=== PATIENT | female | born 1945 | race Caucasian/White ===

== ENCOUNTER → 2016-12-12 | Outpatient (CLI) | payer MEDICARE ==
[2014-03-01 10:30] VITALS: BP 118/60
[~2016-12-12] MED LIST: CIPR500T94 PO; ESOM40CA25 PO; IOHEXOL 300 MG/ML 75 ML VIAL. IV ONE; IOHEXOL 300 MG/ML 75 ML VIAL. ONE; LOSA100T6 PO; METF500T4 PO; NIFE60TA41 PO
--- NOTE | 2016-12-12 15:40 | RAD ---
Indication chronic shortness of air. Axial images through the chest were obtained. MIP images were generated and reviewed. Approximately 60 cc of Omnipaque [address] imaging of the chest is available. Imaging through the upper abdomen demonstrates moderate splenomegaly. An acute or additional finding is not seen. The thoracic aorta is unremarkable. Coronary artery calcification or stents are noted. There is no significant hilar or mediastinal adenopathy. The study is negative for pulmonary embolus. An acute parenchymal infiltrate in either lung is not seen. There is no dominant soft tissue mass seen in either lung. IMPRESSION:: No acute finding in the chest. Negative study for pulmonary embolus. Splenomegaly. PQRS Compliance Statement: One or more of the following individualized dose reduction techniques were utilized for this examination: 1. Automated exposure control 2. Adjustment of the mA and/or kV according to patient size 3. Use of iterative reconstruction technique
== END | disposition home or self-care (01) ==
LOC: CT 14:01
PROVIDERS: ATTEND Physician Assistant
DX: R16.1 Splenomegaly, not elsewhere classified (principal); R06.02 Shortness of breath; R68.89 Other general symptoms and signs; R07.89 Other chest pain; R79.1 Abnormal coagulation profile; I10 Essential (primary) hypertension
CPT/HCPCS: 71275; Q9967

== ENCOUNTER 2017-06-05 10:02 | Inpatient (IN) | payer MEDICARE ==
[~2017-06-05] VITALS: Ht 165.1 cm; Wt 81.2 kg
[~2017-06-05 10:02] MED LIST changes: -IOHEXOL 300 MG/ML 75 ML VIAL. IV ONE; -IOHEXOL 300 MG/ML 75 ML VIAL. ONE
[2017-06-05 11:00] VITALS: BP 145/66
[2017-06-05 11:40] LABS: BASO % 2 % (0-3); EOS # 0.2 x10^3/uL (0.0-0.7); EOS % 6 % (0-3); HEMATOCRIT 35.5 % (36.0-47.0); HEMOGLOBIN 11.7 g/dL (12.0-15.5); LYMPH % 29 % (24-48); MEAN CORPUSCULAR HEMOGLOBIN 32 pg (25-35); MEAN CORPUSCULAR HGB CONC 33 g/dL (31-37); MEAN CORPUSCULAR VOLUME 96 fL (79-100); MONO # 0.3 x10^3/uL (0.0-1.1); MONO % 9 % (0-9); NEUT # 1.8 x10^3uL (1.8-7.7); NEUT % 55 % (31-73); PLATELET COUNT 90 x10^3/uL (140-400); RED CELL DISTRIBUTION WIDTH 15.1 % (11.5-14.5); WHITE BLOOD COUNT 3.4 x10^3/uL (4.0-11.0)
[2017-06-05 11:47] LABS: ALBUMIN 3.2 g/dL (3.4-5.0); ALBUMIN/GLOBULIN RATIO 0.9 (1.0-1.7); CALCIUM 8.6 mg/dL (8.5-10.1); CREATININE 1.1 mg/dL (0.6-1.0); POTASSIUM 4.3 mmol/L (3.5-5.1); TOTAL BILIRUBIN 0.6 mg/dL (0.2-1.0); TOTAL PROTEIN 6.9 g/dL (6.4-8.2)
[2017-06-05] MEDS ORDERED: AMLO5TAB4 PO (12:08)
[2017-06-05] MEDS ORDERED: PRAV40TA2 PO (12:08)
[2017-06-05] MEDS ORDERED: INSU200I4 SQ (12:08)
[2017-06-05] MEDS ORDERED: LINA5TAB4 PO (12:08)
[2017-06-05] MEDS ORDERED: ALEN70TA5 PO (12:08)
[2017-06-05] MEDS ORDERED: LEVO137T3 PO (12:09)
[2017-06-05 12:34] LABS: BILIRUBIN,URINE NEG (NEG); CLARITY,URINE HAZY; COLOR,URINE STRAW; GLUCOSE,URINE NEG (NEG); NITRITE,URINE NEG (NEG); RBC,URINE 0 /HPF (0-2); UROBILINOGEN,URINE 0.2 mg/dL (0.2 mg/dL)
[2017-06-05 12:35] LABS: BACTERIA,URINE FEW /HPF (0-FEW); SQUAMOUS EPITHELIAL CELL,UR FEW /LPF
[2017-06-05] MEDS: PRAVASTATIN 20 MG TABLET. PO SCH (12:41)
[2017-06-05 12:57] LABS: PLT ESTIMATE DECREASED (ADEQUATE)
--- NOTE | 2017-06-05 14:10 | RAD ---
Chest, 2 views, 06/05/2017: History: Shortness of breath Comparison is made to a study from 03/01/2014. The heart is mildly enlarged. There is calcific plaquing of the aorta. The pulmonary vascularity is at the upper limits of normal. Slight pleural thickening is present in the lateral costophrenic angles and one of the posterior costophrenic angles suggesting a tiny amount pleural fluid. No pulmonary consolidation is seen. Moderate hypertrophic spurring is present in the spine. IMPRESSION: Probable low-grade congestive heart failure.
[2017-06-05 15:06] VITALS: BP 118/65
[2017-06-05] MEDS: ACETAMINOPHEN 500 MG TABLET PO PRN (15:18)
[2017-06-05 19:10] VITALS: BP 142/73
[2017-06-05] MEDS ORDERED: FUROSEMIDE 20 MG/2 ML VIAL IVP ONE (20:00)
[2017-06-05] MEDS: INSULIN GLARGINE 300 UNITS/3 ML INSULN.PEN. SQ SCH (20:32)
[2017-06-05 23:00] VITALS: BP 149/73
[2017-06-06] MEDS: ACETAMINOPHEN 500 MG TABLET PO PRN ×3 (03:28→18:06)
[2017-06-06 05:57] LABS: BASO % 0 % (0-3); EOS # 0.2 x10^3/uL (0.0-0.7); EOS % 8 % (0-3); HEMATOCRIT 38.1 % (36.0-47.0); HEMOGLOBIN 12.5 g/dL (12.0-15.5); LYMPH # 0.9 x10^3/uL (1.0-4.8); LYMPH % 30 % (24-48); MEAN CORPUSCULAR HEMOGLOBIN 32 pg (25-35); MEAN CORPUSCULAR HGB CONC 33 g/dL (31-37); MEAN CORPUSCULAR VOLUME 97 fL (79-100); MONO # 0.3 x10^3/uL (0.0-1.1); MONO % 10 % (0-9); NEUT # 1.6 x10^3uL (1.8-7.7); NEUT % 52 % (31-73); PLATELET COUNT 95 x10^3/uL (140-400); RED BLOOD COUNT 3.94 x10^6/uL (3.50-5.40); RED CELL DISTRIBUTION WIDTH 15.9 % (11.5-14.5); WHITE BLOOD COUNT 3.1 x10^3/uL (4.0-11.0)
[2017-06-06 06:00] VITALS: BP 140/60
[2017-06-06] MEDS: LEVOTHYROXINE 137 MCG TABLET PO SCH (06:20)
[2017-06-06 06:22] LABS: ALBUMIN 3.2 g/dL (3.4-5.0); ALBUMIN/GLOBULIN RATIO 0.8 (1.0-1.7); GFR 54.7; POTASSIUM 4.2 mmol/L (3.5-5.1); TOTAL BILIRUBIN 0.8 mg/dL (0.2-1.0); TOTAL PROTEIN 7.1 g/dL (6.4-8.2)
[2017-06-06] MEDS: FUROSEMIDE 40 MG/4 ML VIAL IVP SCH (08:32)
[2017-06-06] MEDS: LOSARTAN 50 MG TABLET. PO SCH (08:33)
[2017-06-06] MEDS: amLODIPine BESYLATE 5 MG TABLET PO SCH (08:33)
[2017-06-06] MEDS: PRAVASTATIN 20 MG TABLET. PO SCH (08:34)
[2017-06-06] MEDS: LINAGLIPTIN 5 MG TABLET PO SCH (08:34)
[2017-06-06] MEDS: ENOXAPARIN 40 MG/0.4 ML DISP.SYRIN. SQ SCH (08:36)
--- NOTE | 2017-06-06 08:44 | PDOC2 ---
NARGISKEITH Vianey ROMERO 06/06/17 0844: CONSULT Date of Admission DATE: 06/06/17 TIME: 08:41 Reason for Consult: CHF History of Present Illness Ms Mason is a 71 year old female with history of coronary artery disease, PCI and 4 stents, hypertension, hyperlipidemia and diabetes mellitus. She reports an episode of bronchitis about 1.5 months ago which was resolving with only a residual cough. 1 Week ago she began experiencing a significant dyspnea on exertion. She was unable to walk more than 20 feet before needing to rest. She is unable to comment on orthopnea as she sleeps with the head of her bed elevated all the time for comfort. She reports edema in her lower extremities over the last 1 week. She denies any exertional chest discomforts. She does complain of burning chest discomfort that has recently been occurring every time she eats but is only associated with eating. She denies any palpitations. She reports some dizziness with standing but also occurring intermittently while laying in bed and described as a bofto-ij-ptofj type dizziness. She denies syncope or pre-syncope. She was given IV lasix and has diuresed about 10 lbs since admission and reports feeling much better. This am she ambulated with OT, about 50 yards. She did experience some dyspnea and desaturated mildly but did not need to stop. She would like to go home today. She [place] [facility] [place] is unsure of when she last had an echo. Her last stress testing was prior to her cardiac cath and stents a few years ago. Past Medical History echo 02/17/14 Left ventricle systolic function is normal. The Ejection Fraction is estimated at 50-55%. There is borderline concentric left ventricular hypertrophy. Doppler and Color Flow revealed mild aortic regurgitation. Doppler and Color-flow revealed mild mitral regurgitation and trace tricuspid regurgitation. The PA pressure was estimated at 37 mmHg. There is no evidence of significant pericardial effusion. CAD s/p PCI and 4 stents, hypertension, hyperlipidemia, diabetes mellitus, GERD , hypothyroid Past Surgical History: Appendectomy, Cholecystectomy, Hysterectomy Family History non contributory due to age Social History non smoker, no significant ETOH, no illicit drugs Current Medications Current Medications Amlodipine Besylate (Norvasc) 5 mg DAILY PO ; Start 06/06/17 at 09:00 Levothyroxine Sodium (Synthroid) 137 mcg DAILY07 PO Last administered on at 06:20; Start 06/06/17 at 07:00 Linagliptin (Tradjenta) 5 mg DAILY PO ; Start 06/06/17 at 09:00 Non-Formulary Medication (Alendronate Sodium ) 1 tab WEEKLY PO ; Start 06/12/17 at 09:00; Status UNV Insulin Glargine (Lantus) 20 units QHS SQ ; Start 06/05/17 at 21:00 Losartan Potassium (Cozaar) 100 mg DAILY PO ; Start 06/06/17 at 09:00 Pravastatin Sodium (Pravachol) 40 mg DAILY PO ; Start 06/05/17 at 09:00 Acetaminophen (Tylenol) 1,000 mg PRN Q6HRS PRN PO PAIN / TEMP Last administered on 06/06/17at 03:28; Start 06/05/17 at 15:15 Enoxaparin Sodium (Lovenox) 40 mg DAILY SQ ; Start 06/06/17 at 09:00 Furosemide (Lasix) 20 mg 1X ONCE IVP Last administered on 06/05/17at 20:24; Start 06/05/17 at 20:00; Stop 06/05/17 at 20:01; Status DC Furosemide (Lasix) 40 mg DAILY IVP ; Start 06/06/17 at 09:00 Active Scripts Active Reported Levothyroxine Sodium 137 Mcg Tablet 1 Tab PO DAILY Pravastatin Sodium 40 Mg Tablet 1 Tab PO DAILY Tresiba Flextouch U-200 (Insulin Degludec) 200 Unit/1 Ml Insuln.pen 20 Unit SQ HS Tradjenta (Linagliptin) 5 Mg Tablet 1 Tab PO DAILY Norvasc (Amlodipine Besylate) 5 Mg Tablet 1 Tab PO DAILY Alendronate Sodium 70 Mg Tablet 1 Tab PO WEEKLY Losartan Potassium 100 Mg Tablet 100 Mg PO DAILY Allergies: Coded Allergies: Sulfa (Sulfonamide Antibiotics) (Unverified Allergy, Unknown, 07/29/13) Review of System as per HPI or negative General: Alert, Oriented X3, Cooperative, No acute distress HEENT: Atraumatic, EOMI, Other (No JVD/HJR) Lungs: Other (bibasilar crackles ) Heart: Regular rate, Normal S1, Normal S2, Other (soft systolic murmur) Abdomen: Normal bowel sounds, Soft, No tenderness Extremities: No clubbing, No cyanosis, Normal pulses, Other (trace edema) Neuro: Normal speech, Strength at 5/5 X4 ext Psych/Mental Status: Mental status NL, Mood NL VITALS Vital Signs Date Time Temp Pulse Resp B/P (MAP) Pulse Ox O2 Delivery O2 Flow Rate FiO2 06/06/17 06:00 97.8 80 22 140/60 (86) 95 Room Air Labs Laboratory Tests Test 06/05/17 10:45 06/05/17 10:57 06/05/17 11:15 06/05/17 11:30 Urine Collection Type Unknown Urine Color Straw Urine Clarity Hazy Urine pH 5.5 Urine Specific [place] <=1.005 Urine Protein Neg (NEG-TRACE) Urine Glucose (UA) Neg mg/dL (NEG) Urine Ketones (Stick) Neg mg/dL (NEG) Urine Blood Neg (NEG) Urine Nitrite Neg (NEG) Urine Bilirubin Neg (NEG) Urine Urobilinogen Dipstick 0.2 mg/dL (0.2 mg/dL) Urine Leukocyte Esterase Trace (NEG) Urine RBC 0 /HPF (0-2) Urine WBC 5-10 /HPF (0-4) Urine Squamous Epithelial Cells Few /LPF Urine Transitional Epithelial Cells Few /LPF Urine Bacteria Few /HPF (0-FEW) Nasal Screen MRSA (PCR) Negative (Negative) White Blood Count 3.4 x10^3/uL (4.0-11.0) Red Blood Count 3.70 x10^6/uL (3.50-5.40) Hemoglobin 11.7 g/dL (12.0-15.5) Hematocrit 35.5 % (36.0-47.0) Mean Corpuscular Volume 96 fL (79-100) Mean Corpuscular Hemoglobin 32 pg (25-35) Mean Corpuscular Hemoglobin Concent 33 g/dL (31-37) Red Cell Distribution Width 15.1 % (11.5-14.5) Platelet Count 90 x10^3/uL (140-400) Neutrophils (%) (Auto) 55 % (31-73) Lymphocytes (%) (Auto) 29 % (24-48) Monocytes (%) (Auto) 9 % (0-9) Eosinophils (%) (Auto) 6 % (0-3) Basophils (%) (Auto) 2 % (0-3) Neutrophils # (Auto) 1.8 x10^3uL (1.8-7.7) Lymphocytes # (Auto) 1.0 x10^3/uL (1.0-4.8) Monocytes # (Auto) 0.3 x10^3/uL (0.0-1.1) Eosinophils # (Auto) 0.2 x10^3/uL (0.0-0.7) Basophils # (Auto) 0.0 x10^3/uL (0.0-0.2) Platelet Estimate Decreased (ADEQUATE) Sodium Level 142 mmol/L (136-145) Potassium Level 4.3 mmol/L (3.5-5.1) Chloride Level 108 mmol/L (98-107) Carbon Dioxide Level 23 mmol/L (21-32) Anion Gap 11 (6-14) Blood Urea Nitrogen 18 mg/dL (7-20) Creatinine 1.1 mg/dL (0.6-1.0) Estimated GFR (Cockcroft-Gault) 49.0 BUN/Creatinine Ratio 16 (6-20) Glucose Level 96 mg/dL (70-99) Lactic Acid Level 1.2 mmol/L (0.4-2.0) Calcium Level 8.6 mg/dL (8.5-10.1) Total Bilirubin 0.6 mg/dL (0.2-1.0) Aspartate Amino Transf (AST/SGOT) 30 U/L (15-37) Alanine Aminotransferase (ALT/SGPT) 18 U/L (14-59) Alkaline Phosphatase 112 U/L (46-116) Total Protein 6.9 g/dL (6.4-8.2) Albumin 3.2 g/dL (3.4-5.0) Albumin/Globulin Ratio 0.9 (1.0-1.7) Glucose (Fingerstick) 83 mg/dL (70-99) Test 06/05/17 16:26 06/05/17 19:50 06/05/17 20:29 06/06/17 05:43 Glucose (Fingerstick) 102 mg/dL (70-99) 121 mg/dL (70-99) D-Dimer (Sweetie) 1.25 mg/L (0.00-0.50) Lactic Acid Level 0.8 mmol/L (0.4-2.0) Creatine Kinase 110 U/L (26-192) Troponin I Quantitative < 0.017 ng/mL (0-0.055) White Blood Count 3.1 x10^3/uL (4.0-11.0) Red Blood Count 3.94 x10^6/uL (3.50-5.40) Hemoglobin 12.5 g/dL (12.0-15.5) Hematocrit 38.1 % (36.0-47.0) Mean Corpuscular Volume 97 fL (79-100) Mean Corpuscular Hemoglobin 32 pg (25-35) Mean Corpuscular Hemoglobin Concent 33 g/dL (31-37) Red Cell Distribution Width 15.9 % (11.5-14.5) Platelet Count 95 x10^3/uL (140-400) Neutrophils (%) (Auto) 52 % (31-73) Lymphocytes (%) (Auto) 30 % (24-48) Monocytes (%) (Auto) 10 % (0-9) Eosinophils (%) (Auto) 8 % (0-3) Basophils (%) (Auto) 0 % (0-3) Neutrophils # (Auto) 1.6 x10^3uL (1.8-7.7) Lymphocytes # (Auto) 0.9 x10^3/uL (1.0-4.8) Monocytes # (Auto) 0.3 x10^3/uL (0.0-1.1) Eosinophils # (Auto) 0.2 x10^3/uL (0.0-0.7) Basophils # (Auto) 0.0 x10^3/uL (0.0-0.2) Sodium Level 141 mmol/L (136-145) Potassium Level 4.2 mmol/L (3.5-5.1) Chloride Level 106 mmol/L (98-107) Carbon Dioxide Level 26 mmol/L (21-32) Anion Gap 9 (6-14) Blood Urea Nitrogen 16 mg/dL (7-20) Creatinine 1.0 mg/dL (0.6-1.0) Estimated GFR (Cockcroft-Gault) 54.7 BUN/Creatinine Ratio 16 (6-20) Glucose Level 111 mg/dL (70-99) Calcium Level 9.0 mg/dL (8.5-10.1) Total Bilirubin 0.8 mg/dL (0.2-1.0) Aspartate Amino Transf (AST/SGOT) 28 U/L (15-37) Alanine Aminotransferase (ALT/SGPT) 19 U/L (14-59) Alkaline Phosphatase 112 U/L (46-116) Total Protein 7.1 g/dL (6.4-8.2) Albumin 3.2 g/dL (3.4-5.0) Albumin/Globulin Ratio 0.8 (1.0-1.7) Test 06/06/17 07:41 Glucose (Fingerstick) 116 mg/dL (70-99) Images CXR - IMPRESSION: Probable low-grade congestive heart failure. Assessment/Plan 1. Acute congestive heart failure - echo for LV function. Continue diuresis today. Consider discharge this evening if improved clinically, otherwise probably tomorrow. Further plans pending echo for LVEF. Request records from [facility]. 2. CAD s/p prior PCI stenting - Keven negative. Medical mgmt. 3. hypertension - resume home medications 4. hyperlipidemia - check lipids, resume statin 5. diabetes mellitus - mgmt per PCP 6. elevated d-dimer - CTA 7. thrombocytopenia - currently on no aspirin. should likely have hematology eval if not currently following. would benefit from aspirin 81 daily for CAD. Problems: BRYANT CORTES MD 06/06/17 1516: CONSULT Allergies: Coded Allergies: Sulfa (Sulfonamide Antibiotics) (Unverified Allergy, Unknown, 07/29/13) Assessment/Plan Pt. seen and examined. Agree with above SURVEY AND MAPPING TECHNICIAN note. 71 y.o woman with diastolic HF. Edema much better. Neck veins still elevated continue diuresis and w/u for elevated d-dimer supportive care. thanks. Will follow along. Problems: KEITH BARILLAS ACCOUNTS PAYABLE MANAGER Jun 06, 2017 08:44 BRYANT CORTES MD Jun 06, 2017 15:16
[2017-06-06 11:13] VITALS: BP 134/65
[2017-06-06] MEDS ORDERED: traMADol 50 MG TABLET PO PRN (11:15)
[2017-06-06 15:21] VITALS: BP 107/67
--- NOTE | 2017-06-06 15:55 | CARD ---
MR#: [id number] Date of Study: 06/06/2017 Ordering Physician: GABBY POLO, Referring Physician: GABBY POLO, Tech: MELONIE Martin APPROVED REPORT EXAM: Two-dimensional and M-mode echocardiogram with Doppler and color Doppler. Other Information Quality : AverageHR: 81bpm INDICATION Congestive Heart Failure 2D DIMENSIONS RVDd3.2 (2.9-3.5cm)Left Atrium(2D)3.9 (1.6-4.0cm) IVSd1.3 (0.7-1.1cm)Aortic Root(2D)2.5 (2.0-3.7cm) LVDd5.1 (3.9-5.9cm)LVOT Diameter2.0 (1.8-2.4cm) PWd1.1 (0.7-1.1cm)LVDs3.5 (2.5-4.0cm) FS (%) 32.5 %SV75.6 ml LVEF(%)60.5 (>50%) Aortic Valve AoV Peak Vasquez.212.1cm/sAoV VTI46.6cm AO Peak GR.18.0mmHgLVOT Peak Vasquez.118.5cm/s LVOT VTI 26.65cmAO Mean GR.11mmHg CHRISTINA (VMAX)1.08sk1IPX (VTI)1.80cm2 AI P 1/2 [id number] Mitral Valve MV E Rwuqkhza501.1cm/sMV E Peak Gr.98mmHg MV DECEL [id number] A Ovvzaacj336.2cm/s E/A Ratio0.9 Pulmonary Valve PV Peak Uezsstcs878.5cm/sPV Peak Grad.6mmHg Tricuspid Valve TR P. Npueayld399gd/sRAP [id number] TR Peak Gr.[id number] LEFT VENTRICLE The left ventricle is normal size. There is mild septal hypertrophy. The left ventricular systolic fu nction is normal. The ejection fraction is estimated at 60%. There is normal LV segmental wall motion . The left ventricular diastolic function and filling is normal for age. RIGHT VENTRICLE The right ventricle is normal size. The right ventricle is mildly hypertrophied. The right ventricula r systolic function is normal. ATRIA The left atrium is borderline dilated. The right atrium size is normal. The interatrial septum is int act with no evidence for an atrial septal defect or patent foramen ovale as noted on 2-D or Doppler i maging. AORTIC VALVE The aortic valve is mildly calcified. Doppler and Color Flow revealed moderate aortic regurgitation. There is no significant aortic valvular stenosis. There is no aortic valvular vegetation. MITRAL VALVE The mitral valve is mildly thickened. There is no evidence of mitral valve prolapse. There is no mitr al valve stenosis. Doppler and Color-flow revealed mild mitral regurgitation. TRICUSPID VALVE The tricuspid valve leaflets are thickened , but open well. Doppler and Color Flow revealed mild to m oderate tricuspid regurgitation. There is moderate pulmonary hypertension. The PA pressure was estima jose at 48 mmHg. There is no tricuspid valve prolapse or vegetation. There is no tricuspid valve steno sis. PULMONIC VALVE The pulmonic valve is not well visualized. Doppler and Color Flow revealed trace pulmonic valvular re gurgitation. There is no pulmonic valvular stenosis. GREAT VESSELS The aortic root is normal in size. The IVC is dilated. The IVC collapses <50% with inspiration. PERICARDIAL EFFUSION There is no pleural effusion. There is no evidence of significant pericardial effusion. Critical Notification Critical Value: No <Conclusion> The left ventricular systolic function is normal. The ejection fraction is estimated at 60%. There is normal LV segmental wall motion. Moderate aortic regurgitation. Mild mitral regurgitation. Mild to moderate tricuspid regurgitation. The PA pressure was estimated at 48 mmHg. There is no evidence of significant pericardial effusion. Signed by : Naren Sultana, Electronically Approved : 06/06/2017 15:54:10
--- NOTE | 2017-06-06 16:24 | RAD ---
Ventilation/perfusion lung scan, 06/06/2017: History: Elevated d-dimer, shortness of breath The ventilation study was performed utilizing 20 mCi of xenon-133. Activity in the lungs is mildly heterogeneous. There is fairly good washout of the xenon from both lungs. Perfusion imaging was performed utilizing 5.5 mCi of technetium 99m MAA. A similar pattern of activity is present in the lungs. No segmental or significant unmatched perfusion defects are seen. IMPRESSION: There are no VQ findings to suggest pulmonary emboli.
[2017-06-06 19:49] VITALS: BP 129/70
[2017-06-06] MEDS: INSULIN GLARGINE 300 UNITS/3 ML INSULN.PEN. SQ SCH (21:00)
--- NOTE | 2017-06-06 21:55 | PN ---
DATE: SUBJECTIVE: A 71-year-old female with congestive heart failure, owtij-uh-otn of chronic heart failure, has a history of coronary artery disease, doing fairly well overall. The patient is also diabetic. The patient's white count down to 3, hemoglobin and hematocrit basically stable. BNP is still pending. PHYSICAL EXAMINATION: VITAL SIGNS: Otherwise, the patient's vital signs include blood pressure 130/60, respirations 16, pulse 80, afebrile. LUNGS: The patient's lungs are diminished throughout, but poor, some rales in the bases. CARDIOVASCULAR: Regular sinus rhythm, S1, S2, without murmur, rub, thrill, or extra heart sound. ABDOMEN: Soft, nontender, no rebound or guarding. Positive bowel sounds, no hepatosplenomegaly was noted. EXTREMITIES: No clubbing, cyanosis, no edema. NEUROLOGIC: The patient is alert and oriented x 3. IMPRESSION: Riilr-pm-dhj of chronic diastolic heart failure, type 2 diabetes, unln-mf-[id number] protein malnutrition. PLAN: The patient will be continued to be monitored here in the ICU for heart failure. Echocardiogram also ordered and Cardiology counselor aide. GABBY POLO MD DR: CHEMA/bri JOB#: [id number] / [id number]
[2017-06-07 05:20] VITALS: BP 145/73
[2017-06-07] MEDS: LEVOTHYROXINE 137 MCG TABLET PO SCH (06:44)
[2017-06-07] MEDS: ACETAMINOPHEN 500 MG TABLET PO PRN (06:47)
[2017-06-07 06:48] LABS: BASO # 0.1 x10^3/uL (0.0-0.2); BASO % 2 % (0-3); EOS # 0.2 x10^3/uL (0.0-0.7); EOS % 7 % (0-3); HEMATOCRIT 39.1 % (36.0-47.0); HEMOGLOBIN 13.2 g/dL (12.0-15.5); LYMPH # 0.8 x10^3/uL (1.0-4.8); LYMPH % 26 % (24-48); MEAN CORPUSCULAR HEMOGLOBIN 32 pg (25-35); MEAN CORPUSCULAR HGB CONC 34 g/dL (31-37); MEAN CORPUSCULAR VOLUME 95 fL (79-100); MONO # 0.3 x10^3/uL (0.0-1.1); MONO % 10 % (0-9); NEUT # 1.7 x10^3uL (1.8-7.7); NEUT % 55 % (31-73); PLATELET COUNT 96 x10^3/uL (140-400); RED BLOOD COUNT 4.12 x10^6/uL (3.50-5.40); RED CELL DISTRIBUTION WIDTH 15.1 % (11.5-14.5); WHITE BLOOD COUNT 3.1 x10^3/uL (4.0-11.0)
[2017-06-07 06:50] LABS: CALCIUM 9.2 mg/dL (8.5-10.1); CREATININE 1.1 mg/dL (0.6-1.0); POTASSIUM 3.8 mmol/L (3.5-5.1)
[2017-06-07] MEDS: FUROSEMIDE 40 MG/4 ML VIAL IVP SCH (08:13)
[2017-06-07 08:14] VITALS: BP 145/73
[2017-06-07] MEDS: PRAVASTATIN 20 MG TABLET. PO SCH (08:14)
[2017-06-07] MEDS: ENOXAPARIN 40 MG/0.4 ML DISP.SYRIN. SQ SCH (08:14)
[2017-06-07] MEDS: LOSARTAN 50 MG TABLET. PO SCH (08:14)
[2017-06-07] MEDS: amLODIPine BESYLATE 5 MG TABLET PO SCH (08:14)
[2017-06-07] MEDS: LINAGLIPTIN 5 MG TABLET PO SCH (08:14)
--- NOTE | 2017-06-07 09:23 | PDOC ---
PROGRESS NOTES Assessment 1. Acute diastolic congestive heart failure - echo revealed normal LVEF and wall motion. good diuresis last 48 hours. appears euvolemic today. will decrease lasix to 20mg daily. She has been given order for BMP in 1 week. 2. 3 V CAD s/p multiple PCI stenting - Keven negative. Medical mgmt. She remains angina free. Suggest outpatient MPI for CAD progression, scheduled next week. 3. hypertension - Continue current medications. 4. hyperlipidemia - well controlled, continue statin 5. diabetes mellitus - mgmt per PCP 6. elevated d-dimer - VQ negative for PE, check venous duplex 7. thrombocytopenia - has been taking 81 asa daily at home, resume. thrombocytopenia has been chronic and per [facility] records she has been seen by hematology. Will resume asa and recommended she follow up with PCP/Heme for any further recommendations. follow up in office in 4 weeks, scheduled. Problems: Subjective she reports feeling much better and wants to go home. cough has improved, no dyspnea, no edema. no chest pain. Objective Vital Signs Date Time Temp Pulse Resp B/P (MAP) Pulse Ox O2 Delivery O2 Flow Rate FiO2 06/07/17 08:14 82 145/73 06/07/17 08:03 Room Air 06/07/17 05:20 98.6 18 93 Intake and Output 06/07/17 07:00 Intake Total 1350 ml Output Total 4100 ml Balance -2750 ml Intake Oral 1350 ml Output Urine Total 4100 ml Abdomen: Normal bowel sounds, Soft, No tenderness Heart: Regular rate, Normal S1, Normal S2 Extremities: No cyanosis, No edema, Normal pulses General: Alert, Oriented X3, Cooperative, No acute distress HEENT: Other (no JVD or HJR) Lungs: Clear to auscultation, Normal air movement Neuro: Normal speech, Strength at 5/5 X4 ext Psych/Mental Status: Mental status NL, Mood NL Review of Relevant I have reviewed the following items vivian (where applicable) has been applied. Labs Laboratory Tests Test 06/05/17 10:45 06/05/17 10:57 06/05/17 11:15 06/05/17 11:30 Urine Collection Type Unknown Urine Color Straw Urine Clarity Hazy Urine pH 5.5 Urine Specific [place] <=1.005 Urine Protein Neg (NEG-TRACE) Urine Glucose (UA) Neg mg/dL (NEG) Urine Ketones (Stick) Neg mg/dL (NEG) Urine Blood Neg (NEG) Urine Nitrite Neg (NEG) Urine Bilirubin Neg (NEG) Urine Urobilinogen Dipstick 0.2 mg/dL (0.2 mg/dL) Urine Leukocyte Esterase Trace (NEG) Urine RBC 0 /HPF (0-2) Urine WBC 5-10 /HPF (0-4) Urine Squamous Epithelial Cells Few /LPF Urine Transitional Epithelial Cells Few /LPF Urine Bacteria Few /HPF (0-FEW) Nasal Screen MRSA (PCR) Negative (Negative) White Blood Count 3.4 x10^3/uL (4.0-11.0) Red Blood Count 3.70 x10^6/uL (3.50-5.40) Hemoglobin 11.7 g/dL (12.0-15.5) Hematocrit 35.5 % (36.0-47.0) Mean Corpuscular Volume 96 fL (79-100) Mean Corpuscular Hemoglobin 32 pg (25-35) Mean Corpuscular Hemoglobin Concent 33 g/dL (31-37) Red Cell Distribution Width 15.1 % (11.5-14.5) Platelet Count 90 x10^3/uL (140-400) Neutrophils (%) (Auto) 55 % (31-73) Lymphocytes (%) (Auto) 29 % (24-48) Monocytes (%) (Auto) 9 % (0-9) Eosinophils (%) (Auto) 6 % (0-3) Basophils (%) (Auto) 2 % (0-3) Neutrophils # (Auto) 1.8 x10^3uL (1.8-7.7) Lymphocytes # (Auto) 1.0 x10^3/uL (1.0-4.8) Monocytes # (Auto) 0.3 x10^3/uL (0.0-1.1) Eosinophils # (Auto) 0.2 x10^3/uL (0.0-0.7) Basophils # (Auto) 0.0 x10^3/uL (0.0-0.2) Platelet Estimate Decreased (ADEQUATE) Sodium Level 142 mmol/L (136-145) Potassium Level 4.3 mmol/L (3.5-5.1) Chloride Level 108 mmol/L (98-107) Carbon Dioxide Level 23 mmol/L (21-32) Anion Gap 11 (6-14) Blood Urea Nitrogen 18 mg/dL (7-20) Creatinine 1.1 mg/dL (0.6-1.0) Estimated GFR (Cockcroft-Gault) 49.0 BUN/Creatinine Ratio 16 (6-20) Glucose Level 96 mg/dL (70-99) Lactic Acid Level 1.2 mmol/L (0.4-2.0) Calcium Level 8.6 mg/dL (8.5-10.1) Total Bilirubin 0.6 mg/dL (0.2-1.0) Aspartate Amino Transf (AST/SGOT) 30 U/L (15-37) Alanine Aminotransferase (ALT/SGPT) 18 U/L (14-59) Alkaline Phosphatase 112 U/L (46-116) Total Protein 6.9 g/dL (6.4-8.2) Albumin 3.2 g/dL (3.4-5.0) Albumin/Globulin Ratio 0.9 (1.0-1.7) Glucose (Fingerstick) 83 mg/dL (70-99) Test 06/05/17 16:26 06/05/17 19:50 06/05/17 20:29 06/06/17 05:43 Glucose (Fingerstick) 102 mg/dL (70-99) 121 mg/dL (70-99) D-Dimer (Sweetie) 1.25 mg/L (0.00-0.50) Lactic Acid Level 0.8 mmol/L (0.4-2.0) Creatine Kinase 110 U/L (26-192) Troponin I Quantitative < 0.017 ng/mL (0-0.055) White Blood Count 3.1 x10^3/uL (4.0-11.0) Red Blood Count 3.94 x10^6/uL (3.50-5.40) Hemoglobin 12.5 g/dL (12.0-15.5) Hematocrit 38.1 % (36.0-47.0) Mean Corpuscular Volume 97 fL (79-100) Mean Corpuscular Hemoglobin 32 pg (25-35) Mean Corpuscular Hemoglobin Concent 33 g/dL (31-37) Red Cell Distribution Width 15.9 % (11.5-14.5) Platelet Count 95 x10^3/uL (140-400) Neutrophils (%) (Auto) 52 % (31-73) Lymphocytes (%) (Auto) 30 % (24-48) Monocytes (%) (Auto) 10 % (0-9) Eosinophils (%) (Auto) 8 % (0-3) Basophils (%) (Auto) 0 % (0-3) Neutrophils # (Auto) 1.6 x10^3uL (1.8-7.7) Lymphocytes # (Auto) 0.9 x10^3/uL (1.0-4.8) Monocytes # (Auto) 0.3 x10^3/uL (0.0-1.1) Eosinophils # (Auto) 0.2 x10^3/uL (0.0-0.7) Basophils # (Auto) 0.0 x10^3/uL (0.0-0.2) Sodium Level 141 mmol/L (136-145) Potassium Level 4.2 mmol/L (3.5-5.1) Chloride Level 106 mmol/L (98-107) Carbon Dioxide Level 26 mmol/L (21-32) Anion Gap 9 (6-14) Blood Urea Nitrogen 16 mg/dL (7-20) Creatinine 1.0 mg/dL (0.6-1.0) Estimated GFR (Cockcroft-Gault) 54.7 BUN/Creatinine Ratio 16 (6-20) Glucose Level 111 mg/dL (70-99) Calcium Level 9.0 mg/dL (8.5-10.1) Total Bilirubin 0.8 mg/dL (0.2-1.0) Aspartate Amino Transf (AST/SGOT) 28 U/L (15-37) Alanine Aminotransferase (ALT/SGPT) 19 U/L (14-59) Alkaline Phosphatase 112 U/L (46-116) VC-Wgn-G-Type Natriuretic Peptide 744 pg/mL (0-124) Total Protein 7.1 g/dL (6.4-8.2) Albumin 3.2 g/dL (3.4-5.0) Albumin/Globulin Ratio 0.8 (1.0-1.7) Triglycerides Level 119 mg/dL (0-150) Cholesterol Level 139 mg/dL (0-200) LDL Cholesterol, Calculated 74 mg/dL (0-100) VLDL Cholesterol, Calculated 23 mg/dL (0-40) Non-HDL Cholesterol Calculated 97 mg/dL (0-129) HDL Cholesterol 42 mg/dL (40-60) Cholesterol/HDL Ratio 3.0 Test 06/06/17 07:41 06/06/17 20:39 06/07/17 05:36 Glucose (Fingerstick) 116 mg/dL (70-99) 137 mg/dL (70-99) White Blood Count 3.1 x10^3/uL (4.0-11.0) Red Blood Count 4.12 x10^6/uL (3.50-5.40) Hemoglobin 13.2 g/dL (12.0-15.5) Hematocrit 39.1 % (36.0-47.0) Mean Corpuscular Volume 95 fL (79-100) Mean Corpuscular Hemoglobin 32 pg (25-35) Mean Corpuscular Hemoglobin Concent 34 g/dL (31-37) Red Cell Distribution Width 15.1 % (11.5-14.5) Platelet Count 96 x10^3/uL (140-400) Neutrophils (%) (Auto) 55 % (31-73) Lymphocytes (%) (Auto) 26 % (24-48) Monocytes (%) (Auto) 10 % (0-9) Eosinophils (%) (Auto) 7 % (0-3) Basophils (%) (Auto) 2 % (0-3) Neutrophils # (Auto) 1.7 x10^3uL (1.8-7.7) Lymphocytes # (Auto) 0.8 x10^3/uL (1.0-4.8) Monocytes # (Auto) 0.3 x10^3/uL (0.0-1.1) Eosinophils # (Auto) 0.2 x10^3/uL (0.0-0.7) Basophils # (Auto) 0.1 x10^3/uL (0.0-0.2) Sodium Level 140 mmol/L (136-145) Potassium Level 3.8 mmol/L (3.5-5.1) Chloride Level 104 mmol/L (98-107) Carbon Dioxide Level 29 mmol/L (21-32) Anion Gap 7 (6-14) Blood Urea Nitrogen 16 mg/dL (7-20) Creatinine 1.1 mg/dL (0.6-1.0) Estimated GFR (Cockcroft-Gault) 49.0 Glucose Level 115 mg/dL (70-99) Calcium Level 9.2 mg/dL (8.5-10.1) Microbiology 06/05/17 Blood Culture - Preliminary, Resulted NO GROWTH AFTER 1 DAY Medications Current Medications Amlodipine Besylate (Norvasc) 5 mg DAILY PO Last administered on 06/07/17 08: 14; Start 06/06/17 at 09:00 Levothyroxine Sodium (Synthroid) 137 mcg DAILY07 PO Last administered on 06:44; Start 06/06/17 at 07:00 Linagliptin (Tradjenta) 5 mg DAILY PO Last administered on 06/07/17 08:14; Start 06/06/17 at 09:00 Non-Formulary Medication (Alendronate Sodium ) 1 tab WEEKLY PO ; Start 06/12/17 at 09:00; Status UNV Insulin Glargine (Lantus) 20 units QHS SQ ; Start 06/05/17 at 21:00 Losartan Potassium (Cozaar) 100 mg DAILY PO Last administered on 06/07/17at 08: 14; Start 06/06/17 at 09:00 Pravastatin Sodium (Pravachol) 40 mg DAILY PO Last administered on 06/07/17at 08 :14; Start 06/05/17 at 09:00 Acetaminophen (Tylenol) 1,000 mg PRN Q6HRS PRN PO PAIN / TEMP Last administered on 06/07/17at 06:47; Start 06/05/17 at 15:15 Enoxaparin Sodium (Lovenox) 40 mg DAILY SQ Last administered on 06/06/17at 08:36 ; Start 06/06/17 at 09:00 Furosemide (Lasix) 20 mg 1X ONCE IVP Last administered on 06/05/17at 20:24; Start 06/05/17 at 20:00; Stop 06/05/17 at 20:01; Status DC Furosemide (Lasix) 40 mg DAILY IVP Last administered on 06/07/17at 08:13; Start 06/06/17 at 09:00 Tramadol HCl (Ultram) 50 mg PRN Q6HRS PRN PO PAIN Last administered on at 01:46; Start 06/06/17 at 11:15 Active Scripts Active Reported Levothyroxine Sodium 137 Mcg Tablet 1 Tab PO DAILY Pravastatin Sodium 40 Mg Tablet 1 Tab PO DAILY Tresiba Flextouch U-200 (Insulin Degludec) 200 Unit/1 Ml Insuln.pen 20 Unit SQ HS Tradjenta (Linagliptin) 5 Mg Tablet 1 Tab PO DAILY Norvasc (Amlodipine Besylate) 5 Mg Tablet 1 Tab PO DAILY Alendronate Sodium 70 Mg Tablet 1 Tab PO WEEKLY Losartan Potassium 100 Mg Tablet 100 Mg PO DAILY Vitals/I & O Vital Sign - Last 24 Hours 06/06/17 06/06/17 06/06/17 06/06/17 11:13 15:21 19:49 20:00 Temp 98.4 Pulse 81 77 Resp 16 14 22 B/P (MAP) 134/65 (88) 107/67 (80) 129/70 (89) Pulse Ox 94 94 93 O2 Delivery Room Air Room Air Room Air Room Air 06/06/17 06/07/17 06/07/17 06/07/17 23:00 01:46 02:47 05:20 Temp 98.6 Pulse 79 82 Resp 17 20 20 18 B/P (MAP) 145/73 (97) Pulse Ox 97 97 93 O2 Delivery Room Air Room Air Room Air Room Air 06/07/17 06/07/17 06/07/17 08:03 08:14 08:14 Pulse 82 82 B/P (MAP) 145/73 145/73 O2 Delivery Room Air Intake and Output 06/06/17 06/06/17 06/07/17 15:00 23:00 07:00 Intake Total 350 ml 1000 ml 0 ml Output Total 1200 ml 1700 ml 1200 ml Balance -850 ml -700 ml -1200 ml KEITH BARILLAS APRN Jun 07, 2017 09:23
--- NOTE | 2017-06-07 10:53 | RAD ---
Chest, 2 views, 06/07/2017: History: Congestive heart failure Comparison is made to a study from 06/05/2017. The heart is at the upper limits of normal in size. There is calcific plaquing the aorta. The pulmonary vascularity is normal. There is minimal basilar scarring. No acute infiltrate is seen. There is no evidence of pleural fluid. Moderate spurring is present in the spine. IMPRESSION: 1. Borderline cardiomegaly and aortic atherosclerosis. 2. No acute abnormality is detected.
[2017-06-07] MEDS ORDERED: FURO-69 PO (11:33)
[2017-06-07] MEDS ORDERED: ASPI-630 PO (11:33)
--- NOTE | 2017-06-07 12:24 | NUR ---
Discharge Note: [facility] Discharge instructions and discharge home medications reviewed with Patient and a copy given. All questions have been answered and understanding verbalized. The following instructions and handouts were given: congestive heart failure education packet, lasix education, home health education, discharge instructions Discontinued lines and drains: Peripheral IV intact. Patient discharged to Home w/services withFamily Membervia Ambulated Pt was educated at length about congestive heart failure. Pt had appointment made with Dr. Clark for follow up and stress test; pt given instructions for stress test and verbalized understanding. Pt given script for follow up lab work next week that she will have home health take care of. Pt ambulated off unit with her son with her belongings including her own can, cell phone, and tablet.
--- NOTE | 2017-06-07 13:31 | RAD ---
MR#: [id number] Date of Study: 06/07/2017 Ordering Physician: KEITH BARILLAS, Referring Physician: GABBY POLO, Tech: Sherri Pham RDMS, RVT, RTR APPROVED REPORT Lower Extremity Venous Study for elevated d-dimer edema Patient Location: IN-PATIENT Indications Grayscale images of the bilateral deep veins are significantly limited due to body habitus and prior scarring of the thighs. On limited imaging grossly there is no evidence of deep vein thrombosis extending from the common fem oral vein to the popliteal segment. Below the knee there is spontaneous waveforms noted. Spectral wav eforms of the deep veins in the thigh do not reveal any evidence of obstruction to flow. Critical Notification Critical Value: No <Conclusion> Limited evaluation but no evidence of DVT. Signed by : Simeon Clark, Electronically Approved : 06/07/2017 13:30:09
[2017-06-08] MEDS ORDERED: ASPIRIN ENTERIC COATED 81 MG TABLET.DR. PO SCH (08:00)
[2017-06-08] MEDS ORDERED: FUROSEMIDE 20 MG TABLET PO SCH (09:00)
[2017-06-12] MEDS ORDERED: NON FORMULARY ITEM (Alendronate Sodium 1 TAB) PO SCH (09:00)
== END 2017-06-07 12:15 | disposition home health service (06) | DRG 291 ==
LOC: ICU 10:34
PROVIDERS: ADMIT Family Medicine; ATTEND Family Medicine
DX: I13.0 Hypertensive heart and chronic kidney disease with heart failure and stage 1 through stage 4 chronic kidney disease, or unspecified chronic kidney disease (principal); I50.33 Acute on chronic diastolic (congestive) heart failure; E44.0 Moderate protein-calorie malnutrition; D69.6 Thrombocytopenia, unspecified; E11.22 Type 2 diabetes mellitus with diabetic chronic kidney disease; E11.65 Type 2 diabetes mellitus with hyperglycemia; N18.2 Chronic kidney disease, stage 2 (mild); K21.9 Gastro-esophageal reflux disease without esophagitis; E03.9 Hypothyroidism, unspecified; I35.1 Nonrheumatic aortic (valve) insufficiency; I25.10 Atherosclerotic heart disease of native coronary artery without angina pectoris; E78.5 Hyperlipidemia, unspecified; M19.90 Unspecified osteoarthritis, unspecified site; E78.00 Pure hypercholesterolemia, unspecified; Z95.5 Presence of coronary angioplasty implant and graft; Z90.710 Acquired absence of both cervix and uterus; Z90.49 Acquired absence of other specified parts of digestive tract; Z79.899 Other long term (current) drug therapy; Z88.2 Allergy status to sulfonamides; Z88.8 Allergy status to other drugs, medicaments and biological substances; Z68.29 Body mass index [BMI] 29.0-29.9, adult; F15.90 Other stimulant use, unspecified, uncomplicated
CPT/HCPCS: 36415; 71046; 78582; 80048; 80053; 80061; 81001; 82550; 82947; 83605; 83880; 84484; 85025; 85379; 87040; 87086; 87641; 93306; 93970; 96374; A9540; A9558; J1650; J1815; J1940; 97110; 97535

== ENCOUNTER → 2017-12-13 | Outpatient (CLI) | payer MEDICARE ==
[~2017-12-13] MED LIST changes: +ALEN70TA5 PO; +AMLO5TAB4 PO; +ASPI-630 PO; +FURO-69 PO; +INSU200I4 SQ; +LEVO137T3 PO; +LINA5TAB4 PO; -LOSA100T6 PO; +LOSA100T7 PO; +METF500T16 PO; -METF500T4 PO; +PRAV40TA2 PO
--- NOTE | 2017-12-13 16:28 | RAD ---
EXAM: CT Abdomen and Pelvis without IV contrast CLINICAL HISTORY: Left kidney pain for several months, recently hematuria, history of chronic kidney infections. COMPARISON: none TECHNIQUE: Helical CT of the abdomen and pelvis without intravenous contrast. Axial, coronal and sagittal reformatted images were generated. PQRS compliance statement - One or more of the following individualized dose reduction techniques were utilized for this study: 1. Automated exposure control 2. Adjustment of the mA and/or kV according to patient size 3. Use of iterative reconstruction technique FINDINGS: Lack of intravenous contrast limits evaluation of solid organs, vasculature, and lymph nodes. Lower chest: Minimal patchy and subpleural opacities likely atelectasis. Coronary artery calcifications are seen. Abdomen and Pelvis: The liver is cirrhotic in configuration. No definite liver lesion is seen on this noncontrast exam. There is recanalization of the umbilical vein. The spleen is enlarged measuring 15.8 cm in length. No focal splenic lesion. Pancreas is unremarkable. Adrenal glands are normal. On this noncontrast exam, no focal renal lesion. The right kidney appears small with thinning of the superior cortex, possibly from cortical scarring. There is also thinning of the left upper pole cortex posteriorly likely scarring as well. No hydronephrosis or hydroureter. Partially distended bladder is unremarkable. No small or large bowel dilatation. Moderate colonic stool content is seen. The appendix is not seen although no significant right lower quadrant inflammatory changes are seen. Dense atherosclerotic calcifications of the aorta and splenic artery. There has been a hysterectomy. 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 Degenerative changes of the spine are seen with rightward curvature apex L2-3. IMPRESSION: 1. Hepatic cirrhosis with changes of portal hypertension including splenomegaly and recanalization of the portal vein. 2. No renal tract calculi or definite renal lesion within the limitations of this noncontrast exam. Electronically signed by: Jerzy Epstein MD (12/13/2017 4:24 PM) [id number]
== END | disposition home or self-care (01) ==
LOC: CT 11:03
PROVIDERS: ATTEND Nurse Practitioner Family
DX: K74.69 Other cirrhosis of liver (principal); K76.6 Portal hypertension; I70.0 Atherosclerosis of aorta; M11.252 Other chondrocalcinosis, left hip; M11.251 Other chondrocalcinosis, right hip; I25.10 Atherosclerotic heart disease of native coronary artery without angina pectoris; R16.1 Splenomegaly, not elsewhere classified
CPT/HCPCS: 74176

== ENCOUNTER 2018-02-19 13:18 | Inpatient (IN) | payer MEDICARE ==
[~2018-02-19] VITALS: Ht 167.6 cm; Wt 85.8 kg
[~2018-02-19 13:18] MED LIST changes: +IOHEXOL 240 MG/ML 50ML VIAL. PO ONE; +LOSA100T14 PO; -LOSA100T7 PO
[2018-02-19 15:13] VITALS: BP 131/70
[2018-02-19] MEDS ORDERED: IOHEXOL 240 MG/ML 50ML VIAL. ONE (15:22)
[2018-02-19 15:29] LABS: BASO % 1 % (0-3); EOS # 0.2 x10^3/uL (0.0-0.7); EOS % 6 % (0-3); HEMATOCRIT 39.5 % (36.0-47.0); HEMOGLOBIN 13.3 g/dL (12.0-15.5); LYMPH # 0.8 x10^3/uL (1.0-4.8); LYMPH % 20 % (24-48); MEAN CORPUSCULAR HEMOGLOBIN 32 pg (25-35); MEAN CORPUSCULAR HGB CONC 34 g/dL (31-37); MEAN CORPUSCULAR VOLUME 97 fL (79-100); MONO # 0.3 x10^3/uL (0.0-1.1); MONO % 9 % (0-9); NEUT # 2.4 x10^3uL (1.8-7.7); NEUT % 64 % (31-73); PLATELET COUNT 99 x10^3/uL (140-400); RED BLOOD COUNT 4.09 x10^6/uL (3.50-5.40); RED CELL DISTRIBUTION WIDTH 14.2 % (11.5-14.5); WHITE BLOOD COUNT 3.7 x10^3/uL (4.0-11.0)
[2018-02-19] MEDS ORDERED: ONDANSETRON PF 4 MG/2 ML VIAL. IV PRN (15:30)
[2018-02-19] MEDS ORDERED: ACETAMINOPHEN 325 MG TABLET PO PRN (15:30)
[2018-02-19 15:41] LABS: ALBUMIN 3.3 g/dL (3.4-5.0); ALBUMIN/GLOBULIN RATIO 0.8 (1.0-1.7); CALCIUM 9.3 mg/dL (8.5-10.1); CREATININE 1.5 mg/dL (0.6-1.0); GFR 34.1; POTASSIUM 4.1 mmol/L (3.5-5.1); TOTAL BILIRUBIN 0.5 mg/dL (0.2-1.0); TOTAL PROTEIN 7.4 g/dL (6.4-8.2)
[2018-02-19] MEDS ORDERED: LEVO150T5 PO (16:29)
[2018-02-19] MEDS ORDERED: CHOL10003 PO (16:29)
[2018-02-19] MEDS ORDERED: CYAN100072 PO (16:29)
[2018-02-19] MEDS ORDERED: PANT20TA58 PO (16:29)
[2018-02-19] MEDS ORDERED: IOHEXOL 300 MG/ML 75 ML VIAL. IV ONE (16:40)
[2018-02-19] MEDS: IV NORMAL SALINE 1,000ML 1,000 ML IV SCH (17:14)
[2018-02-19] MEDS: MORPHINE SULFATE 2 MG/ML DISP.SYRIN. IV PRN ×2 (17:15→23:47)
[2018-02-19 18:07] LABS: BILIRUBIN,URINE NEG (NEG); CLARITY,URINE HAZY; COLOR,URINE YELLOW; GLUCOSE,URINE NEG (NEG)
[2018-02-19 18:08] LABS: NITRITE,URINE NEG (NEG); UROBILINOGEN,URINE 0.2 mg/dL (0.2 mg/dL)
[2018-02-19 18:13] LABS: BACTERIA,URINE FEW /HPF (0-FEW); SQUAMOUS EPITHELIAL CELL,UR MANY /LPF
[2018-02-19 18:15] LABS: HYALINE CASTS, URINE FEW /HPF
[2018-02-19 18:42] VITALS: BP 110/67
--- NOTE | 2018-02-19 18:55 | RAD ---
Examination: CT ABD PELV W/ORAL IV CONTRAST History: Abdominal pain, diverticulitis, lack of appetite, OMNI 300 60 ml, OMNI 240 30 ml in breeza Comparison/Correlation: CT chest abdomen and pelvis without contrast 12/13/2017 Findings: Axial images of the abdomen and pelvis were obtained following intravenous and oral contrast administration. Subtle nodular contour of the liver is present. Small hiatal hernia is present. Splenomegaly noted with the spleen measuring 16 cm anteroposteriorly by 10.7 cm transverse by 11 cm longitudinal. Recanalization of the umbilical vein is evident. Adrenal glands are normal. Pancreas is unremarkable. Calcification of upper abdominal arterial vasculature is notable. Gallbladder is not identified. No enlarged abdominal lymph nodes. Reactive lymph nodes about the hepatic hilum noted similar to previous exam. Moderate right renal atrophy is present. Right renal superior pole scarring is present. Left renal lower pole cyst or other very small to characterize lesion is present. Distention of the bilateral collecting systems noted. Urinary bladder is unremarkable. No bowel obstruction or extraluminal gas. Minimal diverticulosis of the colon is present. Dextroconvexity of the spine noted. Impression: Distention of the ureters and renal pelves bilaterally is noted in the interval with no radiopaque obstructive lesion. Urinary bladder is unremarkable. Correlate with hydration. Inferior vena cava is more distended as compared to previous exam and this may represent better hydration at the time of imaging on the current exam as compared to previous. Correlate clinically. Hepatic cirrhosis and associated splenomegaly with findings of portal hypertension. No acute inflammatory changes about the bowel. Electronically signed by: Korey Sparks MD (02/19/2018 6:51 PM) [facility]
[2018-02-19] MEDS: INSULIN GLARGINE 300 UNITS/3 ML INSULN.PEN. SQ SCH (21:00)
[2018-02-19 23:01] LABS: PLT ESTIMATE DECREASED (ADEQUATE)
[2018-02-20] VITALS (7 sets, daily range): BP systolic 108–117; BP diastolic 60–73
[2018-02-20] MEDS: IV NORMAL SALINE 1,000ML 1,000 ML IV SCH ×2 (02:43→18:06)
[2018-02-20] MEDS ORDERED: LEVOTHYROXINE 137 MCG TABLET PO SCH (06:00)
[2018-02-20] MEDS: LEVOTHYROXINE 150 MCG TABLET PO SCH (06:13)
[2018-02-20 06:33] LABS: BASO % 1 % (0-3); EOS # 0.3 x10^3/uL (0.0-0.7); EOS % 8 % (0-3); HEMATOCRIT 36.8 % (36.0-47.0); HEMOGLOBIN 12.4 g/dL (12.0-15.5); LYMPH # 1.1 x10^3/uL (1.0-4.8); LYMPH % 34 % (24-48); MEAN CORPUSCULAR HEMOGLOBIN 32 pg (25-35); MEAN CORPUSCULAR HGB CONC 34 g/dL (31-37); MEAN CORPUSCULAR VOLUME 96 fL (79-100); MONO # 0.3 x10^3/uL (0.0-1.1); MONO % 11 % (0-9); NEUT # 1.4 x10^3uL (1.8-7.7); NEUT % 46 % (31-73); PLATELET COUNT 88 x10^3/uL (140-400); RED BLOOD COUNT 3.82 x10^6/uL (3.50-5.40); RED CELL DISTRIBUTION WIDTH 14.1 % (11.5-14.5); WHITE BLOOD COUNT 3.1 x10^3/uL (4.0-11.0)
[2018-02-20 06:42] LABS: CALCIUM 8.7 mg/dL (8.5-10.1); CREATININE 1.3 mg/dL (0.6-1.0); GFR 40.3; POTASSIUM 4.1 mmol/L (3.5-5.1)
[2018-02-20] MEDS ORDERED: DEXTROSE 50% 25 GM / 50ML DISP.SYRIN. IV PRN (07:45)
[2018-02-20] MEDS: INSULIN LISPRO 300 UNITS/3 ML INSULN.PEN. SQ SCH ×3 (08:00→17:00)
[2018-02-20] MEDS: PRAVASTATIN 20 MG TABLET. PO SCH (08:11)
[2018-02-20] MEDS: LINAGLIPTIN 5 MG TABLET PO SCH (08:11)
[2018-02-20] MEDS: LOSARTAN 50 MG TABLET. PO SCH (08:11)
[2018-02-20] MEDS: CYANOCOBALAMIN (VITAMIN B-12) 1,000 MCG TABLET. PO SCH (08:11)
[2018-02-20] MEDS: amLODIPine BESYLATE 5 MG TABLET PO SCH (08:11)
[2018-02-20] MEDS: CHOLECALCIFEROL (VITAMIN D3) 1,000 UNIT TABLET PO SCH (08:11)
[2018-02-20] MEDS: FUROSEMIDE 20 MG TABLET PO SCH (08:11)
[2018-02-20] MEDS: ASPIRIN 81 MG TAB.CHEW PO SCH (08:12)
[2018-02-20] MEDS: PANTOPRAZOLE 40 MG TABLET. PO SCH (08:12)
[2018-02-20] MEDS: MORPHINE SULFATE 2 MG/ML DISP.SYRIN. IV PRN ×2 (12:19→19:57)
--- NOTE | 2018-02-20 14:49 | RAD ---
EXAM: Chest, 2 views. HISTORY: Shortness of breath. Elevated d-dimer. COMPARISON: 06/07/2017. FINDINGS: 2 views of chest are obtained. There is mild increased right greater than left lower lobe interstitial opacity likely due to atelectasis. No consolidation, pleural effusion or pneumothorax is seen. The heart is upper normal in size. There are prominent air-filled loops of bowel within the upper abdomen. There are coronary artery stents. IMPRESSION: Suspected right greater than left lower lobe atelectasis. No consolidated infiltrate is seen. Electronically signed by: Crystal Collins MD (02/20/2018 2:45 PM) [place] [id number]
[2018-02-20] MEDS: HEPARIN for SUB-Q USE 5,000 UNIT/ML VIAL. SQ SCH ×2 (15:19→22:00)
--- NOTE | 2018-02-20 15:26 | RAD ---
Ventilation/perfusion lung scan, 02/20/2017: HISTORY: Elevated d-dimer, shortness of breath Ventilation imaging was performed utilizing 9.0 mCi of xenon-133. The pulmonary activity is mildly heterogeneous, likely related to the patient's size. There is fairly good washout of the xenon from both lungs. Perfusion imaging was performed utilizing 5.4 mCi of technetium 99m MAA. There is a similar pattern of activity in both lungs. No significant unmatched or segmental perfusion defect is seen. Similar findings were present on the study of 06/06/2017. IMPRESSION: There are no VQ findings to suggest pulmonary emboli. Electronically signed by: Indra Dong MD (02/20/2018 3:22 PM) [facility]
[2018-02-20] MEDS: INSULIN GLARGINE 300 UNITS/3 ML INSULN.PEN. SQ SCH (21:00)
[2018-02-21 05:17] VITALS: BP 115/73
[2018-02-21] MEDS: IV NORMAL SALINE 1,000ML 1,000 ML IV SCH ×2 (05:27→21:54)
[2018-02-21] MEDS: LEVOTHYROXINE 150 MCG TABLET PO SCH (05:28)
[2018-02-21] MEDS: HEPARIN for SUB-Q USE 5,000 UNIT/ML VIAL. SQ SCH ×3 (05:32→21:58)
[2018-02-21] MEDS: INSULIN LISPRO 300 UNITS/3 ML INSULN.PEN. SQ SCH ×3 (08:00→17:00)
--- NOTE | 2018-02-21 08:05 | RAD ---
Bilateral lower extremity venous ultrasound, 02/20/2018: History: Elevated d-dimer Duplex evaluation of the deep veins in the lower extremities was performed including grayscale, color-flow and spectral Doppler analysis. The femoral and popliteal veins demonstrate normal compressibility and normal responses to distal augmentation maneuvers. Color imaging of those vessels shows no evidence of intraluminal clot. The visualized deep veins in both calves are patent. IMPRESSION: There is no sonographic evidence of deep vein thrombosis in either lower extremity. Electronically signed by: Indra Dong MD (02/21/2018 8:01 AM) [facility]
[2018-02-21] MEDS: PRAVASTATIN 20 MG TABLET. PO SCH (08:08)
[2018-02-21] MEDS: CYANOCOBALAMIN (VITAMIN B-12) 1,000 MCG TABLET. PO SCH (08:08)
[2018-02-21] MEDS: CHOLECALCIFEROL (VITAMIN D3) 1,000 UNIT TABLET PO SCH (08:08)
[2018-02-21] MEDS: ASPIRIN 81 MG TAB.CHEW PO SCH (08:09)
[2018-02-21] MEDS: LINAGLIPTIN 5 MG TABLET PO SCH (08:09)
[2018-02-21] MEDS: LOSARTAN 50 MG TABLET. PO SCH (08:09)
[2018-02-21] MEDS: FUROSEMIDE 20 MG TABLET PO SCH (08:09)
[2018-02-21] MEDS: amLODIPine BESYLATE 5 MG TABLET PO SCH (08:09)
[2018-02-21] MEDS: PANTOPRAZOLE 40 MG TABLET. PO SCH (08:09)
--- NOTE | 2018-02-21 09:06 | PN ---
DATE: 02/20/2018 SUBJECTIVE: A 72-year-old female here with abdominal pain, probable colitis. The patient states she is a little better, but still quite a bit of pain in her abdomen. OBJECTIVE: VITAL SIGNS: Blood pressure 114/73, respiratory rate 20, pulse 76, afebrile. GENERAL: The patient is alert and oriented. LUNGS: Diminished, but clear ____. ABDOMEN: Soft. There is definite tenderness within the several areas of the abdomen with pain on the palpation CARDIOVASCULAR: Stable. ABDOMEN: Soft, diffuse tenderness as indicated above. LABORATORY DATA AND IMAGING STUDIES: The patient's D-dimer was elevated. V/Q was negative. PLAN: The patient continued to be monitored carefully, make further evaluation on her as indicated, possible consolidated ____ possible atelectasis, but no infiltrate noted. Continue on IV antibiotics for now and adjust accordingly in the morning. IMPRESSION: Abdominal pain, lung atelectasis, positive D-dimer. GABBY POLO MD DR: CHEMA/bri JOB#: [id number] / [id number]
[2018-02-21 15:34] VITALS: BP 106/63
--- NOTE | 2018-02-21 19:08 | PN ---
DATE: SUBJECTIVE: The patient is resting fairly comfortably, still having abdominal pain, but she says she is definitely better than she was yesterday and that is because we started her on some IV Flagyl, although the CT scan did not cook pickled meat anything in particular. It was felt the patient probably had some micro colitis and she is having difficulty with oral medications at the present time, so we will continue on IV antibiotics, continue with PT, OT and make further evaluation. IMPRESSION: Colitis, abdominal pain. PLAN: As above. PHYSICAL EXAMINATION: VITAL SIGNS: Blood pressure 115/73, respiratory rate 20, pulse 69, afebrile. LUNGS: Clear. ABDOMEN: There is definite tenderness, some guarding in the left upper quadrant. No rebounding or guarding. Positive bowel sounds. No hepatosplenomegaly noted. IMPRESSION: Therefore, colitis of the large bowel. GABBY POLO MD DR: CHEMA/bri JOB#: [id number] / [id number]
[2018-02-21 19:35] VITALS: BP 104/63
[2018-02-21] MEDS: INSULIN GLARGINE 300 UNITS/3 ML INSULN.PEN. SQ SCH (21:01)
[2018-02-21 22:55] VITALS: BP 108/67
[2018-02-22] MEDS: LEVOTHYROXINE 150 MCG TABLET PO SCH (05:38)
[2018-02-22] MEDS: HEPARIN for SUB-Q USE 5,000 UNIT/ML VIAL. SQ SCH (05:43)
[2018-02-22 06:05] VITALS: BP 122/72
[2018-02-22] MEDS: PANTOPRAZOLE 40 MG TABLET. PO SCH (07:51)
[2018-02-22] MEDS: INSULIN LISPRO 300 UNITS/3 ML INSULN.PEN. SQ SCH (08:00)
[2018-02-22] MEDS: ASPIRIN 81 MG TAB.CHEW PO SCH (08:35)
[2018-02-22] MEDS: LOSARTAN 50 MG TABLET. PO SCH (08:36)
[2018-02-22] MEDS: LINAGLIPTIN 5 MG TABLET PO SCH (08:36)
[2018-02-22] MEDS: CHOLECALCIFEROL (VITAMIN D3) 1,000 UNIT TABLET PO SCH (08:36)
[2018-02-22] MEDS: CYANOCOBALAMIN (VITAMIN B-12) 1,000 MCG TABLET. PO SCH (08:36)
[2018-02-22] MEDS: amLODIPine BESYLATE 5 MG TABLET PO SCH (08:36)
[2018-02-22] MEDS: FUROSEMIDE 20 MG TABLET PO SCH (08:36)
[2018-02-22] MEDS: PRAVASTATIN 20 MG TABLET. PO SCH (08:36)
[2018-02-22 10:26] VITALS: BP 121/74
--- NOTE | 2018-02-22 10:53 | DS ---
DATE OF DISCHARGE: HOSPITAL COURSE: The patient is a 72-year-old female, resting fairly comfortably, although she is still having this pain in her left mid and left lower quadrant area. Imaging scans of that area did not demonstrate anything in particular except for some distention of the ureters and renal pelvis area and as a result of this, she will be transferred down to [place] for GI and possible Urology consult since she continues to still have that pain in her left flank area. Urine cultures were negative. The patient continued to be monitored carefully and make further evaluation on her as indicated. The patient will be transferred down to [place] as indicated. IMPRESSION: Left flank pain, dilated ureters, possible cirrhosis of the liver, leukopenia, elevated D-dimer and V/Q scan was negative for blood clots. PLAN: The patient will be continued to be monitored, transferred down to care of Dr. Perry at [facility] for further evaluation and treatment thereof. GABBY POLO MD DR: CHEMA/nts JOB#: [id number] / [id number]
[2018-02-26] MEDS ORDERED: NON FORMULARY ITEM (Alendronate Sodium 1 TAB) PO SCH (09:00)
== END 2018-02-22 10:41 | disposition short-term general hospital (02) | DRG 392 ==
LOC: 1 SOUTH 14:26
PROVIDERS: ADMIT Family Medicine; ATTEND Family Medicine
DX: K52.9 Noninfective gastroenteritis and colitis, unspecified (principal); J98.11 Atelectasis; K74.60 Unspecified cirrhosis of liver; D72.819 Decreased white blood cell count, unspecified; N28.82 Megaloureter
CPT/HCPCS: 36415; 71046; 74177; 78582; 80048; 80053; 81001; 82150; 82947; 83605; 83690; 85025; 85379; 87086; 93970; 96374; A9540; A9558; J1644; J1815; J2270; J3490; Q9966; Q9967; J7030

== ENCOUNTER 2018-04-04 12:52 | Inpatient (IN) | payer MEDICARE ==
[~2018-04-04] VITALS: Ht 167.6 cm; Wt 83.5 kg
[~2018-04-04 12:52] MED LIST changes: -ALEN70TA5 PO; +ALEN70TA6 PO; +CHOL10003 PO; +CYAN100072 PO; -IOHEXOL 240 MG/ML 50ML VIAL. PO ONE; +LEVO150T5 PO; +PANT20TA58 PO
[2018-04-04] MEDS ORDERED: IPRATRPIUM/ALBUTEROL 0.5/2.5MG 3 ML NEBU. NEB ONE (13:30)
[2018-04-04] MEDS ORDERED: KETOROLAC 15 MG/ML VIAL. IV ONE (13:45)
[2018-04-04 13:55] LABS: BASO # 0.1 x10^3/uL (0.0-0.2); BASO % 1 % (0-3); EOS % 1 % (0-3); HEMATOCRIT 41.4 % (36.0-47.0); HEMOGLOBIN 13.7 g/dL (12.0-15.5); LYMPH # 1.4 x10^3/uL (1.0-4.8); LYMPH % 23 % (24-48); MEAN CORPUSCULAR HEMOGLOBIN 32 pg (25-35); MEAN CORPUSCULAR HGB CONC 33 g/dL (31-37); MEAN CORPUSCULAR VOLUME 96 fL (79-100); MONO # 0.5 x10^3/uL (0.0-1.1); MONO % 9 % (0-9); NEUT % 66 % (31-73); PLATELET COUNT 75 x10^3/uL (140-400); RED BLOOD COUNT 4.29 x10^6/uL (3.50-5.40); RED CELL DISTRIBUTION WIDTH 14.9 % (11.5-14.5)
[2018-04-04 14:14] LABS: ALBUMIN 3.3 g/dL (3.4-5.0); ALBUMIN/GLOBULIN RATIO 0.8 (1.0-1.7); CALCIUM 9.4 mg/dL (8.5-10.1); CREATININE 1.5 mg/dL (0.6-1.0); GFR 34.1; POTASSIUM 4.2 mmol/L (3.5-5.1); TOTAL BILIRUBIN 1.2 mg/dL (0.2-1.0); TOTAL PROTEIN 7.7 g/dL (6.4-8.2)
--- NOTE | 2018-04-04 14:16 | RAD ---
CHEST PA LATERAL CLINICAL INDICATION: COUGH, SOB COMPARISON: 02/20/2018 FINDINGS: Heart is normal in size. Bilateral prominent interstitial opacities are seen with left lower lobe patchy opacity. No pneumothorax or pleural effusion. Visualized thorax is within normal limits. IMPRESSION: Findings suggests small focus of left lower lobe pneumonia. Electronically signed by: David Quintana DO (04/04/2018 2:14 PM) [id number]
--- NOTE | 2018-04-04 15:02 | PHYS DOC ---
Past History Past Medical History: CAD, Diabetes, Heart Disease, Hypertension Past Surgical History: Appendectomy, Hysterectomy, Tonsillectomy Smoking: Quit Greater Than 1 Year Alcohol Use: Occasionally Drug Use: None Adult General Chief Complaint Chief Complaint: MULTIPLE COMPLAINTS HPI HPI Patient is a 72-year-old female who presents with cough and left flank pain along with dysuria. Patient has noted subjective fever at home. She does not have a thermometer to evaluate her temperature. This started in the past 24-48 hours. It has been getting worse over time. No nausea or vomiting. No specific chest pains or palpitations. Increased dyspnea on exertion.[] Review of Systems Review of Systems Constitutional: Denies fever or chills [] Eyes: Denies change in visual acuity, redness, or eye pain [] HENT: Denies nasal congestion or sore throat [] Respiratory: See history of present illness[] Cardiovascular: No additional information not addressed in HPI [] GI: Denies abdominal pain, nausea, vomiting, bloody stools or diarrhea [] : Denies hematuria , see history of present illness[] Musculoskeletal: Denies back pain or joint pain [] Integument: Denies rash or skin lesions [] Neurologic: Denies headache, focal weakness or sensory changes [] Endocrine: Denies polyuria or polydipsia [] All other systems were reviewed and found to be within normal limits, except as documented in this note. Current Medications Current Medications Current Medications Medications (Trade) Dose Ordered Sig/Bita Start Time Stop Time Status Last Admin Dose Admin Albuterol/ Ipratropium (Duoneb) 3 ml 1X ONCE 04/04/18 13:30 04/04/18 13:31 DC 04/04/18 13:38 3 ML Ketorolac Tromethamine (Toradol 15mg Vial) 15 mg 1X ONCE 04/04/18 13:45 04/04/18 13:46 DC 04/04/18 13:38 15 MG Allergies Allergies Allergies Coded Allergies Type Severity Reaction Last Updated Verified Sulfa (Sulfonamide Antibiotics) Allergy Intermediate 04/04/18 No Physical Exam Physical Exam Constitutional: Well developed, well nourished, no acute distress, non-toxic appearance. [] HENT: Normocephalic, atraumatic, bilateral external ears normal, oropharynx moist, no oral exudates, nose normal. [] Eyes: PERRLA, EOMI, conjunctiva normal, no discharge. [] Neck: Normal range of motion, no tenderness, supple, no stridor. [] Cardiovascular:Heart rate regular rhythm, no murmur [] Lungs & Thorax: Bilateral breath sounds clear to auscultation [] Abdomen: Bowel sounds normal, soft, no tenderness, no masses, no pulsatile masses. [] Skin: Warm, dry, no erythema, no rash. [] Back: No tenderness, no CVA tenderness. [] Extremities: No tenderness, no cyanosis, no clubbing, ROM intact, no edema. [] Neurologic: Alert and oriented X 3, normal motor function, normal sensory function, no focal deficits noted. [] Psychologic: Affect normal, judgement normal, mood normal. [] Current Patient Data Vital Signs Vital Signs Date Time Temp Pulse Resp B/P (MAP) Pulse Ox O2 Delivery O2 Flow Rate FiO2 04/04/18 13:52 95 Room Air 04/04/18 13:02 99.6 112 19 Lab Results Laboratory Tests Test 04/04/18 13:42 White Blood Count 6.0 x10^3/uL (4.0-11.0) Red Blood Count 4.29 x10^6/uL (3.50-5.40) Hemoglobin 13.7 g/dL (12.0-15.5) Hematocrit 41.4 % (36.0-47.0) Mean Corpuscular Volume 96 fL (79-100) Mean Corpuscular Hemoglobin 32 pg (25-35) Mean Corpuscular Hemoglobin Concent 33 g/dL (31-37) Red Cell Distribution Width 14.9 % (11.5-14.5) H Platelet Count 75 x10^3/uL (140-400) L Neutrophils (%) (Auto) 66 % (31-73) Lymphocytes (%) (Auto) 23 % (24-48) L Monocytes (%) (Auto) 9 % (0-9) Eosinophils (%) (Auto) 1 % (0-3) Basophils (%) (Auto) 1 % (0-3) Neutrophils # (Auto) 4.0 x10^3uL (1.8-7.7) Lymphocytes # (Auto) 1.4 x10^3/uL (1.0-4.8) Monocytes # (Auto) 0.5 x10^3/uL (0.0-1.1) Eosinophils # (Auto) 0.0 x10^3/uL (0.0-0.7) Basophils # (Auto) 0.1 x10^3/uL (0.0-0.2) Prothrombin Time 11.0 SEC (9.4-11.4) Prothrombin Time INR 1.1 (0.9-1.1) Sodium Level 139 mmol/L (136-145) Potassium Level 4.2 mmol/L (3.5-5.1) Chloride Level 105 mmol/L (98-107) Carbon Dioxide Level 24 mmol/L (21-32) Anion Gap 10 (6-14) Blood Urea Nitrogen 34 mg/dL (7-20) H Creatinine 1.5 mg/dL (0.6-1.0) H Estimated GFR (Cockcroft-Gault) 34.1 BUN/Creatinine Ratio 23 (6-20) H Glucose Level 165 mg/dL (70-99) H Calcium Level 9.4 mg/dL (8.5-10.1) Total Bilirubin 1.2 mg/dL (0.2-1.0) H Aspartate Amino Transferase (AST) 34 U/L (15-37) Alanine Aminotransferase (ALT) 25 U/L (14-59) Alkaline Phosphatase 166 U/L (46-116) H Troponin I Quantitative 0.020 ng/mL (0-0.055) RR-Dxt-Z-Type Natriuretic Peptide 2050 pg/mL (0-124) H Total Protein 7.7 g/dL (6.4-8.2) Albumin 3.3 g/dL (3.4-5.0) L Albumin/Globulin Ratio 0.8 (1.0-1.7) L Lipase 280 U/L (73-393) EKG EKG EKG shows a sinus tachycardia at 112 bpm, normal axis, normal QTC, no ST elevation, interpreted by me at 1356[] Radiology/Procedures Radiology/Procedures CHEST PA LATERAL CLINICAL INDICATION: COUGH, SOB COMPARISON: 02/20/2018 FINDINGS: Heart is normal in size. Bilateral prominent interstitial opacities are seen with left lower lobe patchy opacity. No pneumothorax or pleural effusion. Visualized thorax is within normal limits. IMPRESSION: Findings suggests small focus of left lower lobe pneumonia. Electronically signed by: David Quintana DO (04/04/2018 2:14 PM) [id number] [] Course & Med Decision Making Course & Med Decision Making Pertinent Labs and Imaging studies reviewed. (See chart for details) Medical decision making: Patient appears to have a left lower lobe infiltrate that could account for her left flank discomfort as well as the cough. She was recently admitted to the hospital for diverticulitis so concerned about healthcare associated pneumonia. Will admit the patient for further evaluation and treatment[] Dragon Disclaimer Dragon Disclaimer This electronic medical record was generated, in whole or in part, using a voice recognition dictation system. Departure Departure: Impression: Primary Impression: Pneumonia Disposition: ADMITTED INPATIENT Admitting Physician: James Bui Condition: IMPROVED Referrals: TIMMY HOUGH (PCP) Problem Qualifiers Primary Impression: Pneumonia Pneumonia type: due to unspecified organism Laterality: left Lung location : lower lobe of lung Qualified Codes: J18.1 - Lobar pneumonia, unspecified organism VIKTOR LA DO Apr 04, 2018 15:02
[2018-04-04] MEDS ORDERED: VANCOMYCIN PER PHARMACY MC ONE (15:15)
[2018-04-04] MEDS ORDERED: ACETAMINOPHEN 325 MG TABLET PO PRN (15:15)
[2018-04-04] MEDS ORDERED: ONDANSETRON PF 4 MG/2 ML VIAL. IV PRN (15:15)
[2018-04-04] MEDS: IV NORMAL SALINE 1,000ML 1,000 ML IV SCH (15:26)
[2018-04-04 15:41] LABS: BILIRUBIN,URINE NEG (NEG); CLARITY,URINE CLEAR; COLOR,URINE AMBER; GLUCOSE,URINE NEG (NEG)
[2018-04-04 15:42] LABS: BACTERIA,URINE FEW /HPF (0-FEW); NITRITE,URINE NEG (NEG); RBC,URINE 0 /HPF (0-2); SQUAMOUS EPITHELIAL CELL,UR OCC /LPF; UROBILINOGEN,URINE 0.2 mg/dL (0.2 mg/dL)
[2018-04-04] MEDS: IPRATRPIUM/ALBUTEROL 0.5/2.5MG 3 ML NEBU. NEB SCH ×2 (16:00→20:39)
[2018-04-04] MEDS ORDERED: CEFEPIME HCL 2 GM in IV NORMAL SALINE 100ML 100 ML IV STA (16:08)
[2018-04-04] MEDS ORDERED: IV NORMAL SALINE 100ML 100 ML ONE (16:15)
[2018-04-04] MEDS ORDERED: CEFEPIME HCL 2 GM VIAL IV ONE (16:15)
[2018-04-04] MEDS ORDERED: VANCOMYCIN 2 GM in IV NORMAL SALINE 500ML 500 ML IV ONE (16:30)
[2018-04-04 18:23] VITALS: BP 119/68
[2018-04-04] MEDS ORDERED: ZOLPIDEM 5 MG TABLET. PO PRN (19:00)
[2018-04-04] MEDS ORDERED: BISACODYL TAB 5 MG TABLET.DR. PO PRN (19:00)
--- NOTE | 2018-04-04 19:27 | NUR ---
The patient, MAIKEL PINEDO, 72 y/o, F admitted by GABBY POLO MD, was given written information regarding hospital policies, unit procedures and contact persons. Patient admitted to room 105 from the ED and arrived at approx. 1730 via EMS. Valuables were checked and left in room with patient. Vital signs assessed and patient oriented to the room. Dr. Polo notified of patient's admission and orders received.
[2018-04-04] MEDS: VANCOMYCIN PER PHARMACY MC PRN (19:30)
[2018-04-04 19:31] VITALS: BP 97/59
--- NOTE | 2018-04-04 19:33 | NUR ---
Pharmacy Vancomycin Dosing Note S:Consulted to monitor and dose vancomycin started 04/04/18. O:MAIKEL PINEDO is a 72 year old F with Pneumonia . Height: 5 feet, 6 inches Weight: 83.999136 kg [place] Body Weight: 59.30 Adjusted Body Weight: 68.86 Dosing Weight: Actual Other Antibiotics: LEVOFLOXACIN 750mg IV X1 IN ED AND CEFEPIME 2GM IV Q12H LABS: Last BUN: 34 Last Creatinine: 1.5 Creatinine Clearance: 36.85 Last WBC: 6.0 Vancomycin Dosing: Loading Dose: 2000 mg x1 Dosing Weight: Actual Target Trough: 15-20 A: Based on: Actual weight, renal function and indication P: 1. Begin Vancomycin 1250 mg IV q24h 2. Follow up Trough level on 04/06/18 at 1730 3. Pharmacy will continue to monitor, follow and adjust therapy as needed. CHEIKH JASSO, 04/04/18 1938
[2018-04-04] MEDS: guaiFENesin DM 200MG/20MG 10 ML SYRUP PO PRN (20:39)
[2018-04-04] MEDS: LACTOBACILLUS RHAMNOSUS GG 1 CAPSULE. PO SCH (20:39)
[2018-04-04] MEDS: INSULIN GLARGINE 300 UNITS/3 ML INSULN.PEN. SQ SCH (21:28)
[2018-04-04] MEDS ORDERED: CEFEPIME HCL 2 GM in IV NORMAL SALINE 100ML 100 ML IV SCH (22:00)
[2018-04-04 22:49] VITALS: BP 102/65
[2018-04-05] MEDS: ACETAMINOPHEN 500 MG TABLET PO PRN ×2 (00:30→13:34)
[2018-04-05] MEDS: CEFEPIME HCL 2 GM in IV NORMAL SALINE 100ML 100 ML IV SCH ×2 (04:03→16:58)
[2018-04-05] MEDS: IV NORMAL SALINE 1,000ML 1,000 ML IV SCH (04:03)
[2018-04-05] MEDS: IPRATRPIUM/ALBUTEROL 0.5/2.5MG 3 ML NEBU. NEB SCH ×3 (05:22→21:17)
[2018-04-05 05:24] VITALS: BP 106/66
[2018-04-05] MEDS: LEVOTHYROXINE 150 MCG TABLET PO SCH (06:10)
[2018-04-05 06:44] LABS: BASO % 1 % (0-3); EOS # 0.1 x10^3/uL (0.0-0.7); EOS % 2 % (0-3); HEMATOCRIT 33.2 % (36.0-47.0); HEMOGLOBIN 11.2 g/dL (12.0-15.5); LYMPH # 1.7 x10^3/uL (1.0-4.8); LYMPH % 34 % (24-48); MEAN CORPUSCULAR HEMOGLOBIN 32 pg (25-35); MEAN CORPUSCULAR HGB CONC 34 g/dL (31-37); MEAN CORPUSCULAR VOLUME 96 fL (79-100); MONO # 0.4 x10^3/uL (0.0-1.1); MONO % 8 % (0-9); NEUT # 2.8 x10^3uL (1.8-7.7); NEUT % 56 % (31-73); PLATELET COUNT 61 x10^3/uL (140-400); RED BLOOD COUNT 3.48 x10^6/uL (3.50-5.40); RED CELL DISTRIBUTION WIDTH 14.8 % (11.5-14.5); WHITE BLOOD COUNT 5.1 x10^3/uL (4.0-11.0)
[2018-04-05 07:00] LABS: ALBUMIN 2.7 g/dL (3.4-5.0); ALBUMIN/GLOBULIN RATIO 0.7 (1.0-1.7); CALCIUM 8.2 mg/dL (8.5-10.1); CREATININE 1.6 mg/dL (0.6-1.0); GFR 31.7; TOTAL BILIRUBIN 1.2 mg/dL (0.2-1.0); TOTAL PROTEIN 6.6 g/dL (6.4-8.2)
[2018-04-05] MEDS: LINAGLIPTIN 5 MG TABLET PO SCH (08:26)
[2018-04-05] MEDS: PANTOPRAZOLE 40 MG TABLET. PO SCH (08:26)
[2018-04-05] MEDS: ASPIRIN 81 MG TAB.CHEW PO SCH (08:26)
[2018-04-05] MEDS: CHOLECALCIFEROL (VITAMIN D3) 1,000 UNIT TABLET PO SCH (08:26)
[2018-04-05] MEDS: FUROSEMIDE 20 MG TABLET PO SCH (08:26)
[2018-04-05] MEDS: CYANOCOBALAMIN (VITAMIN B-12) 1,000 MCG TABLET. PO SCH (08:26)
[2018-04-05] MEDS: PRAVASTATIN 20 MG TABLET. PO SCH (08:26)
[2018-04-05] MEDS: LACTOBACILLUS RHAMNOSUS GG 1 CAPSULE. PO SCH ×2 (08:26→21:05)
[2018-04-05] MEDS: amLODIPine BESYLATE 5 MG TABLET PO SCH (08:29)
[2018-04-05] MEDS: LOSARTAN 50 MG TABLET. PO SCH (08:32)
[2018-04-05] MEDS: guaiFENesin DM 200MG/20MG 10 ML SYRUP PO PRN ×2 (10:21→16:57)
--- NOTE | 2018-04-05 10:39 | PN ---
DATE: SUBJECTIVE: A 72-year-old female in with pneumonia of unspecified etiology. The patient has acute exacerbation of COPD with respiratory distress. OBJECTIVE: VITAL SIGNS: The patient's pulse up into the 110 range. She had a temperature of almost 100 degrees, respiratory rate 24. She is afebrile presently. GENERAL: The patient is breathing a little bit better, but still very short of breath, very weak. LUNGS: The patient's lungs are diminished throughout, poor movement of air, especially in the right lower lobe. CARDIOVASCULAR: Regular sinus rhythm. ABDOMEN: Soft, nontender. IMPRESSION: Pneumonia of unspecified etiology, acute respiratory distress with acute respiratory hypoxia as well systemic inflammatory response syndrome. PLAN: The patient continued to be monitored carefully, make further evaluation on her as indicated on her IV antibiotic therapy, aggressive pulmonary toilet. GABBY POLO MD DR: CHEMA/bri JOB#: [id number] / [id number]
[2018-04-05 10:41] VITALS: BP 114/61
[2018-04-05 15:23] VITALS: BP 109/72
[2018-04-05] MEDS ORDERED: VANCOMYCIN 1.25 GM in IV NORMAL SALINE 250ML 250 ML IV SCH (16:00)
[2018-04-05 19:15] VITALS: BP 111/71
[2018-04-05] MEDS: INSULIN GLARGINE 300 UNITS/3 ML INSULN.PEN. SQ SCH (21:05)
--- NOTE | 2018-04-05 22:55 | EKG ---
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
[2018-04-05 23:00] VITALS: BP 103/57
[2018-04-06] MEDS: CEFEPIME HCL 2 GM in IV NORMAL SALINE 100ML 100 ML IV SCH ×2 (05:21→17:25)
[2018-04-06] MEDS: IPRATRPIUM/ALBUTEROL 0.5/2.5MG 3 ML NEBU. NEB SCH ×4 (05:43→19:58)
[2018-04-06] MEDS: LEVOTHYROXINE 150 MCG TABLET PO SCH (06:10)
[2018-04-06 07:09] VITALS: BP 108/73
[2018-04-06] MEDS: FUROSEMIDE 20 MG TABLET PO SCH (08:13)
[2018-04-06] MEDS: CYANOCOBALAMIN (VITAMIN B-12) 1,000 MCG TABLET. PO SCH (08:13)
[2018-04-06] MEDS: PRAVASTATIN 20 MG TABLET. PO SCH (08:13)
[2018-04-06] MEDS: PANTOPRAZOLE 40 MG TABLET. PO SCH (08:13)
[2018-04-06] MEDS: CHOLECALCIFEROL (VITAMIN D3) 1,000 UNIT TABLET PO SCH (08:14)
[2018-04-06] MEDS: LACTOBACILLUS RHAMNOSUS GG 1 CAPSULE. PO SCH ×2 (08:15→21:17)
[2018-04-06] MEDS: LINAGLIPTIN 5 MG TABLET PO SCH (08:15)
[2018-04-06] MEDS: ASPIRIN 81 MG TAB.CHEW PO SCH (08:15)
[2018-04-06] MEDS: amLODIPine BESYLATE 5 MG TABLET PO SCH (08:15)
[2018-04-06] MEDS: guaiFENesin DM 200MG/20MG 10 ML SYRUP PO PRN (08:22)
[2018-04-06] MEDS: LOSARTAN 50 MG TABLET. PO SCH (08:45)
[2018-04-06 11:01] VITALS: BP 102/64
[2018-04-06 15:23] VITALS: BP 123/66
[2018-04-06 16:50] LABS: VANC TR 18.2 mcg/mL (10.0-20.0)
[2018-04-06] MEDS ORDERED: VANCOMYCIN 1.25 GM in IV NORMAL SALINE 250ML 250 ML IV SCH (17:00)
[2018-04-06] MEDS: VANCOMYCIN PER PHARMACY MC PRN (17:03)
--- NOTE | 2018-04-06 17:03 | NUR ---
Pharmacy Vancomycin Dosing Note S:Consulted to monitor and dose vancomycin started 04/04/18. O:MAIKEL PINEDO is a 72 year old F with Pneumonia . Height: 5 feet, 6 inches Weight: 83.743604 kg [place] Body Weight: 59.30 Adjusted Body Weight: 68.98 Dosing Weight: Actual Other Antibiotics: CEFEPIME 2GM IV Q12H LABS: Last BUN: 36 Last Creatinine: 1.6 Creatinine Clearance: 34.6 Last WBC: 5.1 Last Platelets: Tmax (past 24 hours): Microbiology: I/O: Drug Levels: Last Trough level: 18.2 on 04/06/18 at 1630 Last dose given at 04/05 16:58 Vancomycin Dosing: Loading Dose: 2000 mg x1 Dosing Weight: Actual Target Trough: 15-20 A: Based on: Physician request for pharmacy to dose P: 1. Continue Vancomycin 1250 mg IV q24h 2. Follow up Trough level on 04/08/18 at 91517 3. Pharmacy will continue to monitor, follow and adjust therapy as needed. SALOMÓN MAURICIO, 04/06/18 [id number]
[2018-04-06 17:11] LABS: CREATININE 1.5 mg/dL (0.6-1.0); GFR 34.1
--- NOTE | 2018-04-06 20:10 | PN ---
DATE: SUBJECTIVE: A 72-year-old female in with acute exacerbation of COPD with hypoxia. The patient is resting fairly comfortably, still having a problem with her breathing, severe coughing spasms and the like. OBJECTIVE: VITAL SIGNS: Her pulse was coming down from over 100 down to 94. Blood pressure 102/60, respiratory rate 20, saturation 93% on room air. GENERAL: The patient is alert and oriented. LUNGS: She still has a barky wet cough, but improved lung breath sounds. CARDIOVASCULAR: Tachycardic. ABDOMEN: Soft. EXTREMITIES: No clubbing or cyanosis. No edema. NEUROLOGIC: The patient is not able to talk very well until she starts to hack and cough. The patient, otherwise, will continue to be monitored carefully, make further evaluation on her as indicated per those results. IMPRESSION: Acute exacerbation of chronic obstructive pulmonary disease with respiratory distress, pneumonia of unspecified etiology. PLAN: Continue to monitor her ____. Aggressive pulmonary toilet, IV antibiotic therapy. GABBY POLO MD DR: CHEMA/bri JOB#: [id number] / [id number]
[2018-04-06 20:11] VITALS: BP 112/63
[2018-04-06] MEDS: INSULIN GLARGINE 300 UNITS/3 ML INSULN.PEN. SQ SCH (21:23)
[2018-04-06 23:02] VITALS: BP 106/66
[2018-04-07 03:36] VITALS: BP 134/76
[2018-04-07] MEDS: CEFEPIME HCL 2 GM in IV NORMAL SALINE 100ML 100 ML IV SCH (04:37)
[2018-04-07] MEDS: LEVOTHYROXINE 150 MCG TABLET PO SCH (05:09)
[2018-04-07 05:15] VITALS: BP 112/70
[2018-04-07] MEDS: IPRATRPIUM/ALBUTEROL 0.5/2.5MG 3 ML NEBU. NEB SCH (05:33)
[2018-04-07] MEDS: LACTOBACILLUS RHAMNOSUS GG 1 CAPSULE. PO SCH (08:48)
[2018-04-07] MEDS: LOSARTAN 50 MG TABLET. PO SCH (08:48)
[2018-04-07] MEDS: ASPIRIN 81 MG TAB.CHEW PO SCH (08:48)
[2018-04-07] MEDS: CYANOCOBALAMIN (VITAMIN B-12) 1,000 MCG TABLET. PO SCH (08:48)
[2018-04-07] MEDS: PRAVASTATIN 20 MG TABLET. PO SCH (08:48)
[2018-04-07] MEDS: CHOLECALCIFEROL (VITAMIN D3) 1,000 UNIT TABLET PO SCH (08:48)
[2018-04-07] MEDS: FUROSEMIDE 20 MG TABLET PO SCH (08:48)
[2018-04-07 08:49] VITALS: BP 112/70
[2018-04-07] MEDS: PANTOPRAZOLE 40 MG TABLET. PO SCH (08:49)
[2018-04-07] MEDS: amLODIPine BESYLATE 5 MG TABLET PO SCH (08:49)
[2018-04-07] MEDS: LINAGLIPTIN 5 MG TABLET PO SCH (08:49)
[2018-04-07] MEDS ORDERED: LEVO500T59 PO (09:08)
--- NOTE | 2018-04-07 09:47 | NUR ---
IV AND TELE DISCONTINUED. PATIENT DISCHARGED TO HOME VIA PRIVATE VEHICLE.
--- NOTE | 2018-04-07 11:41 | DS ---
DATE OF DISCHARGE: HOSPITAL COURSE: This is a 72-year-old female who came in with increased shortness of breath, coughing, and severe bronchospasm. The patient was noted to have a pneumonic process. As a result of that, the patient was brought in. Pulse was over 100. She had a temperature of almost 100 degrees, technically septic and the patient was given IV antibiotic therapy, aggressive pulmonary toilet. She made excellent progress during the rest of her hospitalization. Her sugars were elevated, and her another risk factors are diabetes as well as chronic renal failure. The patient was seen initially through the Emergency Room, admitted to the hospital, make further evaluation on her as indicated per those responses and in turn, the patient made good progress. She was discharged home on Levaquin. See KEYUR, diabetic diet. IMPRESSION: Pneumonia of unspecified etiology, acute bronchospasm, sepsis. The patient continued to be monitored as an outpatient, followup accordingly. GABBY POLO MD DR: CHEMA/bri JOB#: [id number] / [id number]
[2018-04-11] MEDS ORDERED: NON FORMULARY ITEM (Alendronate Sodium 1 TAB) PO SCH (09:00)
== END 2018-04-07 11:26 | disposition home or self-care (01) | DRG 871 ==
LOC: ER 12:52 → 1 SOUTH 16:37
PROVIDERS: ADMIT Family Medicine; ATTEND Family Medicine
DX: A41.9 Sepsis, unspecified organism (principal); J18.9 Pneumonia, unspecified organism; J44.0 Chronic obstructive pulmonary disease with (acute) lower respiratory infection; J44.1 Chronic obstructive pulmonary disease with (acute) exacerbation; E11.9 Type 2 diabetes mellitus without complications; I10 Essential (primary) hypertension; I25.10 Atherosclerotic heart disease of native coronary artery without angina pectoris; R09.02 Hypoxemia; Z87.891 Personal history of nicotine dependence; Z90.49 Acquired absence of other specified parts of digestive tract; Z90.710 Acquired absence of both cervix and uterus
CPT/HCPCS: 36415; 71046; 80053; 80202; 81001; 82565; 82947; 83605; 83690; 83880; 84484; 85025; 85610; 87040; 93005; 94640; 96365; 96367; 96375; J0692; J1815; J1885; J1956; J3370; J7040; J7050; J7620; 99285-25; J7030

== ENCOUNTER 2018-05-25 10:24 | Inpatient (IN) | payer MEDICARE ==
[~2018-05-25] VITALS: Ht 167.6 cm; Wt 83.7 kg
[2018-05-25] VITALS (8 sets, daily range): BP systolic 103–131; BP diastolic 50–67
[~2018-05-25 10:24] MED LIST changes: +LEVO500T59 PO
--- NOTE | 2018-05-25 10:53 | PHYS DOC ---
Past History Past Medical History: CAD, CHF, Diabetes, High Cholesterol, Heart Disease, Hypertension, Hypothyroid Past Surgical History: Appendectomy, Cholecystectomy, Hysterectomy, Tonsillectomy Smoking: Quit Greater Than 1 Year Alcohol Use: None Drug Use: None Adult General Chief Complaint Chief Complaint: SHORTNESS OF BREATH HPI HPI Patient is a 72-year-old female presents complaining of cough and shortness of breath for the past week. This worsens when she lays down. She also noted a decreased exercise tolerance during the same time frame. She had approximately 20 minutes of chest discomfort this morning. Nothing really seems to make the discomfort better or worse. It resolved without any intervention. No aspirin was taken at home. No radiation of the discomfort, no nausea or vomiting. Patient has been on antibiotics, doxycycline for the past several days after being seen by her primary care team for this cough.[] Review of Systems Review of Systems Constitutional: Denies fever or chills [] Eyes: Denies change in visual acuity, redness, or eye pain [] HENT: Denies nasal congestion or sore throat [] Respiratory: See history of present illness[] Cardiovascular: No additional information not addressed in HPI [] GI: Denies abdominal pain, nausea, vomiting, bloody stools or diarrhea [] : Denies dysuria or hematuria [] Musculoskeletal: Denies back pain or joint pain [] Integument: Denies rash or skin lesions [] Neurologic: Denies headache, focal weakness or sensory changes [] Endocrine: Denies polyuria or polydipsia [] All other systems were reviewed and found to be within normal limits, except as documented in this note. Allergies Allergies Allergies Coded Allergies Type Severity Reaction Last Updated Verified Sulfa (Sulfonamide Antibiotics) Allergy Intermediate 04/04/18 No niacin Allergy Unknown 05/25/18 Yes Physical Exam Physical Exam Constitutional: Well developed, well nourished, no acute distress, non-toxic appearance. [] HENT: Normocephalic, atraumatic, bilateral external ears normal, oropharynx moist, no oral exudates, nose normal. [] Eyes: PERRLA, EOMI, conjunctiva normal, no discharge. [] Neck: Normal range of motion, no tenderness, supple, no stridor. [] Cardiovascular:Heart rate regular rhythm, no murmur [] Lungs & Thorax: Bilateral breath sounds clear to auscultation [] Abdomen: Bowel sounds normal, soft, no tenderness, no masses, no pulsatile masses. [] Skin: Warm, dry, no erythema, no rash. [] Back: No tenderness, no CVA tenderness. [] Extremities: No tenderness, no cyanosis, no clubbing, ROM intact, 1+ pretibial edema bilaterally symmetric. [] Neurologic: Alert and oriented X 3, normal motor function, normal sensory function, no focal deficits noted. [] Psychologic: Affect normal, judgement normal, mood normal. [] Current Patient Data Vital Signs Vital Signs Date Time Temp Pulse Resp B/P (MAP) Pulse Ox O2 Delivery O2 Flow Rate FiO2 05/25/18 10:30 97.8 85 20 97 Room Air EKG EKG EKG shows a sinus rhythm at 75 bpm, axis of -1, QTC of 458 ms, no ST elevations , interpreted by me at 1042. Compared with EKG of 04/04/2018, no acute changes are present[] Radiology/Procedures Radiology/Procedures PA and lateral chest. HISTORY: Chest pain with history of heart disease, short of breath PA and lateral views were taken of the chest. Lungs are free of infiltrates. Heart is normal in size. There is no effusion. There is thoracolumbar scoliosis and dorsal kyphosis. IMPRESSION: 1. No acute chest disease.[] Course & Med Decision Making Course & Med Decision Making Pertinent Labs and Imaging studies reviewed. (See chart for details) ED course: Patient arrived, was placed in bed, and tolerated exam well. She was transferred to and from radiology with any complications. After return lab and imaging findings, these were discussed with the patient and family along with her primary care physician who will be admitting her. She was admitted in improved condition. All questions were answered. Medical decision making: Patient has an elevated BNP along with the cough and shortness of breath, concerned about congestive heart failure. Fortunately there is no evidence of an effusion. With the chest discomfort, at this point cardiac enzymes are negative and EKG does not show a STEMI. Of note her lipase is elevated which it has not been in the past. We'll have to walk up. Line between fluid resuscitation for pancreatitis as well as diuresis for congestive heart failure issues. Given that patient is currently experiencing no discomfort in the abdomen, and no chest pain, will keep her nothing by mouth to prevent further exacerbation of possible pancreatitis[] Dragon Disclaimer Dragon Disclaimer This electronic medical record was generated, in whole or in part, using a voice recognition dictation system. Departure Departure: Impression: Primary Impression: Shortness of breath Additional Impressions: Congestive heart failure Elevated lipase Disposition: ADMITTED INPATIENT Condition: IMPROVED Referrals: TIMMY HOUGH (PCP) Problem Qualifiers Additional Impressions: Congestive heart failure Heart failure type: unspecified Heart failure chronicity: acute on chronic Qualified Codes: I50.9 - Heart failure, unspecified VIKTOR LA DO May 25, 2018 10:53
[2018-05-25] MEDS ORDERED: ASPIRIN 81 MG TAB.CHEW PO ONE (11:00)
--- NOTE | 2018-05-25 11:10 | RAD ---
PA and lateral chest. HISTORY: Chest pain with history of heart disease, short of breath PA and lateral views were taken of the chest. Lungs are free of infiltrates. Heart is normal in size. There is no effusion. There is thoracolumbar scoliosis and dorsal kyphosis. IMPRESSION: 1. No acute chest disease. Electronically signed by: Thom Alcantara MD (05/25/2018 11:08 AM) [facility]
[2018-05-25 11:14] LABS: BASO # 0.1 x10^3/uL (0.0-0.2); BASO % 1 % (0-3); EOS % 1 % (0-3); HEMATOCRIT 36.1 % (36.0-47.0); HEMOGLOBIN 11.8 g/dL (12.0-15.5); LYMPH # 1.8 x10^3/uL (1.0-4.8); LYMPH % 29 % (24-48); MEAN CORPUSCULAR HEMOGLOBIN 32 pg (25-35); MEAN CORPUSCULAR HGB CONC 33 g/dL (31-37); MEAN CORPUSCULAR VOLUME 97 fL (79-100); MONO # 0.4 x10^3/uL (0.0-1.1); MONO % 7 % (0-9); NEUT # 3.9 x10^3uL (1.8-7.7); NEUT % 62 % (31-73); PLATELET COUNT 126 x10^3/uL (140-400); RED BLOOD COUNT 3.73 x10^6/uL (3.50-5.40); RED CELL DISTRIBUTION WIDTH 14.9 % (11.5-14.5); WHITE BLOOD COUNT 6.2 x10^3/uL (4.0-11.0)
[2018-05-25 11:33] LABS: ALBUMIN 3.4 g/dL (3.4-5.0); ALBUMIN/GLOBULIN RATIO 0.9 (1.0-1.7); CALCIUM 8.8 mg/dL (8.5-10.1); CREATININE 1.7 mg/dL (0.6-1.0); GFR 29.5; MAGNESIUM 2.2 mg/dL (1.8-2.4); POTASSIUM 4.1 mmol/L (3.5-5.1); TOTAL BILIRUBIN 0.5 mg/dL (0.2-1.0); TOTAL PROTEIN 7.3 g/dL (6.4-8.2)
[2018-05-25] MEDS: IV NORMAL SALINE 1,000ML 1,000 ML IV SCH ×2 (12:11→22:11)
[2018-05-25] MEDS ORDERED: NITROGLYCERIN SUBLINGUAL 0.4 MG BOTTLE OF 25. SL PRN (12:15)
[2018-05-25] MEDS ORDERED: ONDANSETRON PF 4 MG/2 ML VIAL. IV PRN (12:15)
[2018-05-25] MEDS ORDERED: ACETAMINOPHEN 325 MG TABLET PO PRN (12:15)
[2018-05-25] MEDS ORDERED: FUROSEMIDE 40 MG/4 ML VIAL IVP ONE (12:30)
[2018-05-25] MEDS ORDERED: DEXTROSE 50% 25 GM / 50ML DISP.SYRIN. IV PRN (14:15)
[2018-05-25] MEDS ORDERED: predniSONE 10 MG TABLET PO ONE (14:15)
--- NOTE | 2018-05-25 14:55 | NUR ---
The patient, MAIKEL PINEDO, 72 y/o, F admitted by GABBY POLO MD, was given written information regarding hospital policies, unit procedures and contact persons. Valuables were checked and admission assessment performed. pt is alert and orientated, lungs are diminished, vss, pt is on room air. denies pain at this time. pt's call light within reach, will ctm.
[2018-05-25] MEDS: INSULIN LISPRO 300 UNITS/3 ML INSULN.PEN. SQ SCH (17:00)
[2018-05-25] MEDS ORDERED: MIRA25TA PO (17:14)
[2018-05-25] MEDS ORDERED: NON FORMULARY ITEM (Insulin Degludec (Tresiba Flextouch U-200) 20 UNIT) SQ SCH (21:00)
[2018-05-25] MEDS ORDERED: INSULIN GLARGINE 300 UNITS/3 ML INSULN.PEN. SQ SCH (21:00)
[2018-05-25] MEDS ORDERED: ATORVASTATIN CALCIUM 10 MG TABLET. PO SCH (21:00)
[2018-05-26] VITALS (7 sets, daily range): BP systolic 102–128; BP diastolic 44–57
--- NOTE | 2018-05-26 05:53 | NUR ---
Throughout the night patient was desating to upper 80's on room air and rebounded quickly. At 0300 pt was not rebounding and oxygen at 2L per nasal cannula was applied. Educated patient at this time that she should wear her oxygen when she sleeps. At 0530 pt fell back to sleep and woke up gasping and having trouble breating and sats were low 80's on room air. Pt did not realize she was going to go back to sleep and nasal cannula placed back on at that time. Will continue to monitor.
[2018-05-26] MEDS ORDERED: LEVOTHYROXINE 150 MCG TABLET PO SCH (06:00)
[2018-05-26 07:04] LABS: BASO % 1 % (0-3); EOS % 0 % (0-3); HEMATOCRIT 33.7 % (36.0-47.0); HEMOGLOBIN 11.1 g/dL (12.0-15.5); LYMPH # 0.9 x10^3/uL (1.0-4.8); LYMPH % 21 % (24-48); MEAN CORPUSCULAR HEMOGLOBIN 32 pg (25-35); MEAN CORPUSCULAR HGB CONC 33 g/dL (31-37); MEAN CORPUSCULAR VOLUME 96 fL (79-100); MONO # 0.2 x10^3/uL (0.0-1.1); MONO % 6 % (0-9); NEUT % 73 % (31-73); PLATELET COUNT 110 x10^3/uL (140-400); RED CELL DISTRIBUTION WIDTH 14.7 % (11.5-14.5); WHITE BLOOD COUNT 4.2 x10^3/uL (4.0-11.0)
[2018-05-26 07:18] LABS: ALBUMIN/GLOBULIN RATIO 0.8 (1.0-1.7); CALCIUM 8.9 mg/dL (8.5-10.1); CREATININE 1.5 mg/dL (0.6-1.0); GFR 34.1; POTASSIUM 4.8 mmol/L (3.5-5.1); TOTAL BILIRUBIN 0.6 mg/dL (0.2-1.0)
[2018-05-26] MEDS ORDERED: ASPIRIN 81 MG TAB.CHEW PO SCH (08:00)
[2018-05-26] MEDS: INSULIN LISPRO 300 UNITS/3 ML INSULN.PEN. SQ SCH ×2 (08:00→12:27)
[2018-05-26] MEDS: IV NORMAL SALINE 1,000ML 1,000 ML IV SCH (08:11)
[2018-05-26] MEDS ORDERED: FUROSEMIDE 20 MG TABLET PO SCH (09:00)
[2018-05-26] MEDS ORDERED: LOSARTAN 50 MG TABLET. PO SCH (09:00)
[2018-05-26] MEDS ORDERED: LINAGLIPTIN 5 MG TABLET PO SCH (09:00)
[2018-05-26] MEDS ORDERED: CHOLECALCIFEROL (VITAMIN D3) 1,000 UNIT TABLET PO SCH (09:00)
[2018-05-26] MEDS ORDERED: predniSONE 20 MG TABLET PO ONE (09:00)
[2018-05-26] MEDS ORDERED: MIRABEGRON 25 MG TAB.ER.24H PO SCH (09:00)
[2018-05-26] MEDS ORDERED: amLODIPine BESYLATE 5 MG TABLET PO SCH (09:00)
[2018-05-26] MEDS ORDERED: BENZONATATE 100 MG CAPSULE. PO SCH (10:30)
--- NOTE | 2018-05-26 11:07 | EKG ---
[address] [address] Test Date: 2018-05-25 Test Time: 10:41:46 Pat Name: MAIKEL PINEDO Department: Room: [facility] 1 Gender: F Clinical Pharmacy Specialist: MINDY : 1945 Requested By: VIKTOR LA Order Number: [id number] Reading MD: Naren Sultana Measurements Intervals [place] Rate: 75 P: 0 MD: 164 QRS: -1 QRSD: 78 T: 31 QT: 408 QTc: 458 Interpretive Statements SINUS RHYTHM LEFTWARD AXIS QRS(T) CONTOUR ABNORMALITY CONSIDER ANTEROSEPTAL MYOCARDIAL DAMAGE CONSISTENT WITH INFERIOR INFARCT PROBABLY OLD ABNORMAL ECG Electronically Signed On 06-03-2018 12:39:25 CDT by Naren Sultana
[2018-05-26] MEDS ORDERED: IPRATRPIUM/ALBUTEROL 0.5/2.5MG 3 ML NEBU. ONE (13:02)
--- NOTE | 2018-05-26 13:19 | NUR ---
pt discharged from hospital. iv d/c'd, pt verbalized understanding, pt off the unit ambulatory.
--- NOTE | 2018-05-26 14:00 | DS ---
DATE OF DISCHARGE: 05/26/2018 HOSPITAL COURSE: Came in with increased shortness of breath, appears to be bronchospasm more than anything. The patient's chest x-ray was basically unremarkable. The patient's labs also were basically unremarkable. Her BNP was elevated at 2300, but she had no real signs of heart failure per se. The patient was given some breathing treatments. She made excellent progress during the rest of her hospitalization. She did have low platelet counts from 126-110,000. The patient made good progress during the rest of her hospitalization. She was given some prednisone that helped her breathe better than anything. She did have a low albumin. She will follow up accordingly as an outpatient with her primary care physician. We tried to get her a nebulizer with some DuoNeb and a tapering dose of prednisone as an outpatient and she will continue to be monitored carefully as such. See the MRAD disclosed for her list of medications that she will be discharged home on and she will continue to be monitored, will follow up in 1-2 days or sooner as needed for followup in the office for followup as well. IMPRESSION: Acute exacerbation of COPD with asthma or bronchospasm. The patient did not complain of any abdominal pain, nausea or vomiting. She will continue to be monitored carefully. She did have a raspy cough, but there were no signs of any infective processes. The patient will be monitored carefully like she is having some springtime asthma, bronchospasm and possibly some sleep apnea, so discharge along with that acute asthma, bronchospasm, possible sleep apnea, hyperglycemia, chronic kidney disease stage 3. DISCHARGE INSTRUCTIONS: The patient will get nebulizer, DuoNeb, tapering dose of prednisone, do a sleep apnea study as an outpatient and followup in 2-3 days or sooner as needed. My number given to her, so if she needs to call she can call me before. GABBY POLO MD DR: CHEMA/bri JOB#: [id number] / [id number]
[2018-05-26] MEDS ORDERED: IPRATRPIUM/ALBUTEROL 0.5/2.5MG 3 ML NEBU. NEB SCH (16:00)
[2018-05-27] MEDS ORDERED: predniSONE 20 MG TABLET PO SCH (09:00)
[2018-05-28] MEDS ORDERED: predniSONE 10 MG TABLET PO ONE (09:00)
[2018-05-29] MEDS ORDERED: predniSONE 10 MG TABLET PO SCH (09:00)
[2018-06-01] MEDS ORDERED: NON FORMULARY ITEM (Alendronate Sodium 1 TAB) PO SCH (09:00)
== END 2018-05-26 13:32 | disposition home or self-care (01) | DRG 202 ==
LOC: ER 10:24 → ICU 13:16
PROVIDERS: ADMIT Family Medicine; ATTEND Family Medicine
DX: J45.901 Unspecified asthma with (acute) exacerbation (principal); J44.1 Chronic obstructive pulmonary disease with (acute) exacerbation; E03.9 Hypothyroidism, unspecified; E11.9 Type 2 diabetes mellitus without complications; E78.00 Pure hypercholesterolemia, unspecified; I11.0 Hypertensive heart disease with heart failure; I25.10 Atherosclerotic heart disease of native coronary artery without angina pectoris; I50.9 Heart failure, unspecified; Z87.891 Personal history of nicotine dependence; Z90.49 Acquired absence of other specified parts of digestive tract; Z90.710 Acquired absence of both cervix and uterus
CPT/HCPCS: 36415; 71046; 80053; 82947; 83690; 83735; 83880; 84484; 85025; 85610; 87641; 93005; J1815; J7512; 99285-25

== ENCOUNTER 2018-09-23 14:41 | Emergency (ER) | payer MEDICARE ==
[~2018-09-23] VITALS: Ht 165.1 cm; Wt 88.0 kg
[~2018-09-23 14:41] MED LIST changes: +MIRA25TA PO
--- NOTE | 2018-09-23 15:04 | EKG ---
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
--- NOTE | 2018-09-23 15:22 | RAD ---
CHEST AP ONLY Clinical indications: Leg swelling. History of heart disease. COMPARISON: May 25, 2018. Findings: No acute lung infiltrate or pleural effusion or pulmonary edema or lung mass or pneumothorax is seen. The heart size, pulmonary vasculature, mediastinum and both betzaida are stable. Impression: No acute radiographic abnormality is seen. Electronically signed by: Piyush Damian MD (09/23/2018 3:19 PM) [facility]
[2018-09-23 15:25] LABS: BASO # 0.1 x10^3/uL (0.0-0.2); BASO % 2 % (0-3); EOS # 0.1 x10^3/uL (0.0-0.7); EOS % 4 % (0-3); HEMOGLOBIN 7.5 g/dL (12.0-15.5); LYMPH # 1.1 x10^3/uL (1.0-4.8); LYMPH % 34 % (24-48); MEAN CORPUSCULAR HEMOGLOBIN 28 pg (25-35); MEAN CORPUSCULAR HGB CONC 31 g/dL (31-37); MEAN CORPUSCULAR VOLUME 88 fL (79-100); MONO # 0.3 x10^3/uL (0.0-1.1); MONO % 10 % (0-9); NEUT # 1.7 x10^3uL (1.8-7.7); NEUT % 50 % (31-73); PLATELET COUNT 94 x10^3/uL (140-400); RED BLOOD COUNT 2.72 x10^6/uL (3.50-5.40); RED CELL DISTRIBUTION WIDTH 17.7 % (11.5-14.5); WHITE BLOOD COUNT 3.3 x10^3/uL (4.0-11.0)
[2018-09-23 15:38] LABS: ALBUMIN/GLOBULIN RATIO 0.9 (1.0-1.7); CALCIUM 8.6 mg/dL (8.5-10.1); CREATININE 1.6 mg/dL (0.6-1.0); GFR 31.6; POTASSIUM 3.9 mmol/L (3.5-5.1); TOTAL BILIRUBIN 0.4 mg/dL (0.2-1.0); TOTAL PROTEIN 6.5 g/dL (6.4-8.2)
--- NOTE | 2018-09-23 16:00 | PHYS DOC ---
Past History Past Medical History: CAD, Diabetes, Hypertension Past Surgical History: Other Smoking: Quit Greater Than 1 Year Alcohol Use: None Drug Use: None Adult General Chief Complaint Chief Complaint: LOWER EXTREMITY SWELLING HPI HPI Patient is a 73 year old female who presents with complaint of lower extremity swelling. The patient was brought to the emergency department by her after being sent from her primary care physician's office due to worsening swelling. Patient notes that over the past 3-4 days she has had worsening dyspnea on exertion. States that she is normally able to walk across her house with minimal shortness of breath, however over the past few days she has barely been able to get out of her bedroom without getting very short of breath. Does note increasing swelling to her lower extremity's. Does have history of congestive heart failure currently on Lasix. The patient went to her primary care physician's office and was told come to the emergency department due to concern for fluid overload. Patient denies any chest pain currently. Patient does note that earlier this week she had dark stools but states that she is not currently having any dark stools at this time. Review of Systems Review of Systems Constitutional: Denies fever or chills [] Eyes: Denies change in visual acuity, redness, or eye pain [] HENT: Denies nasal congestion or sore throat [] Respiratory: Shortness of breath, denies cough[] Cardiovascular: Lower extremity edema, dyspnea on exertion, denies chest pain[] GI: Denies abdominal pain, nausea, vomiting, bloody stools or diarrhea [] : Denies dysuria or hematuria [] Musculoskeletal: Denies back pain or joint pain [] Integument: Denies rash or skin lesions [] Neurologic: Denies headache, focal weakness or sensory changes [] All other systems were reviewed and found to be within normal limits, except as documented in this note. Allergies Allergies Allergies Coded Allergies Type Severity Reaction Last Updated Verified Sulfa (Sulfonamide Antibiotics) Allergy Intermediate 04/04/18 No niacin Allergy Unknown 05/25/18 Yes Physical Exam Physical Exam Constitutional: Alert, afebrile, no acute distress. [] HENT: Normocephalic, atraumatic, bilateral external ears normal, oropharynx moist, no oral exudates, nose normal. [] Eyes: PERRLA, EOMI, conjunctiva normal, no discharge. [] Neck: Normal range of motion, no tenderness, supple, no stridor. [] Cardiovascular:Heart rate regular rhythm, no murmur [] Lungs & Thorax: Bilateral breath sounds clear to auscultation [] Abdomen: Bowel sounds normal, soft, no tenderness, no masses, no pulsatile ma sses. Rectal: Nontender on exam, brownish stool noted, guaiac positive[] Skin: Warm, dry, pale, no rash. [] Back: No tenderness, no CVA tenderness. [] Extremities: No tenderness, no cyanosis, no clubbing, ROM intact, 2+ pitting edema in the bilateral lower extremities. [] Neurologic: Alert and oriented X 3, normal motor function, normal sensory function, no focal deficits noted. [] Current Patient Data Vital Signs Vital Signs Date Time Temp Pulse Resp B/P (MAP) Pulse Ox O2 Delivery O2 Flow Rate FiO2 09/23/18 15:22 97.9 70 16 95 Room Air Lab Results Laboratory Tests Test 09/23/18 15:10 White Blood Count 3.3 x10^3/uL (4.0-11.0) L Red Blood Count 2.72 x10^6/uL (3.50-5.40) L Hemoglobin 7.5 g/dL (12.0-15.5) L Hematocrit 24.0 % (36.0-47.0) L Mean Corpuscular Volume 88 fL (79-100) Mean Corpuscular Hemoglobin 28 pg (25-35) Mean Corpuscular Hemoglobin Concent 31 g/dL (31-37) Red Cell Distribution Width 17.7 % (11.5-14.5) H Platelet Count 94 x10^3/uL (140-400) L Neutrophils (%) (Auto) 50 % (31-73) Lymphocytes (%) (Auto) 34 % (24-48) Monocytes (%) (Auto) 10 % (0-9) H Eosinophils (%) (Auto) 4 % (0-3) H Basophils (%) (Auto) 2 % (0-3) Neutrophils # (Auto) 1.7 x10^3uL (1.8-7.7) L Lymphocytes # (Auto) 1.1 x10^3/uL (1.0-4.8) Monocytes # (Auto) 0.3 x10^3/uL (0.0-1.1) Eosinophils # (Auto) 0.1 x10^3/uL (0.0-0.7) Basophils # (Auto) 0.1 x10^3/uL (0.0-0.2) Sodium Level 141 mmol/L (136-145) Potassium Level 3.9 mmol/L (3.5-5.1) Chloride Level 107 mmol/L (98-107) Carbon Dioxide Level 24 mmol/L (21-32) Anion Gap 10 (6-14) Blood Urea Nitrogen 32 mg/dL (7-20) H Creatinine 1.6 mg/dL (0.6-1.0) H Estimated GFR (Cockcroft-Gault) 31.6 BUN/Creatinine Ratio 20 (6-20) Glucose Level 154 mg/dL (70-99) H Calcium Level 8.6 mg/dL (8.5-10.1) Total Bilirubin 0.4 mg/dL (0.2-1.0) Aspartate Amino Transferase (AST) 30 U/L (15-37) Alanine Aminotransferase (ALT) 26 U/L (14-59) Alkaline Phosphatase 109 U/L (46-116) Total Protein 6.5 g/dL (6.4-8.2) Albumin 3.0 g/dL (3.4-5.0) L Albumin/Globulin Ratio 0.9 (1.0-1.7) L EKG EKG Interpreted by me: Heart rate 74, sinus rhythm, normal intervals, leftward axis, no acute ST/T-wave abnormalities present[] Radiology/Procedures Radiology/Procedures [address] [address] IMAGING REPORT Signed PATIENT: MAIKEL PINEDO ACCOUNT: [id number] : 1945 LOCATION: ER AGE: 73 SEX: F EXAM STATUS: REG ER ORD. PHYSICIAN: WILDER RHODES MD REASON: swelling PROCEDURE: CHEST AP ONLY CHEST AP ONLY Clinical indications: Leg swelling. History of heart disease. COMPARISON: May 25, 2018. Findings: No acute lung infiltrate or pleural effusion or pulmonary edema or lung mass or pneumothorax is seen. The heart size, pulmonary vasculature, mediastinum and both betzaida are stable. Impression: No acute radiographic abnormality is seen. Electronically signed by: Luda Damian MD (09/23/2018 3:19 PM) [facility] DICTATED AND SIGNED BY: LUDA DAMIAN MD DATE: 09/23/18 1519 CC: GABBY POLO MD; WILDER RHODES MD ~ [] Course & Med Decision Making Course & Med Decision Making Pertinent Labs and Imaging studies reviewed. (See chart for details) Patient's blood counts were found to be significantly low at today's visit. Patient is guaiac positive at this time. Patient's blood counts dropped from 11.1 in December 2018 to 7.5 today. I'm concerned about potential internal bleeding as a cause. I spoke with patient regarding her blood counts and potential need for transfusion. The patient states however that she cannot receive any blood transfusions as she is a [employer] and this is against her believes. Due to comorbidity with congestive heart failure, I do feel the patient will need a higher level of care for further management as she will also likely need consultation from gastroenterology to help manage care. I contacted the patient's primary physician, Dr. Polo, who agreed and advised that the patient transferred to another facility. Patient care was accepted by Dr. Vigil, hospitalist at [facility]. Patient will be transferred by ground ambulance for further care. Dragon Disclaimer Dragon Disclaimer This electronic medical record was generated, in whole or in part, using a voice recognition dictation system. Departure Departure: Impression: Primary Impression: Anemia Additional Impressions: GI bleeding Acute on chronic congestive heart failure Disposition: [facility] Condition: GUARDED Referrals: GABBY POLO MD (PCP) Problem Qualifiers Primary Impression: Anemia Anemia type: unspecified type Qualified Codes: D64.9 - Anemia, unspecified Additional Impressions: GI bleeding GI bleed type/associated pathology: unspecified gastrointestinal hemorrhage type Qualified Codes: K92.2 - Gastrointestinal hemorrhage, unspecified Acute on chronic congestive heart failure Heart failure type: unspecified Qualified Codes: I50.9 - Heart failure, unspecified WILDER RHODES MD Sep 23, 2018 16:00
[2018-09-23 16:55] LABS: FECAL OB PT POSITIVE (NEG)
[2018-09-23 22:24] VITALS: BP 111/68
== END 2018-09-23 22:45 | disposition short-term general hospital (02) ==
LOC: ER 14:43
DX: K92.2 Gastrointestinal hemorrhage, unspecified (principal); D64.9 Anemia, unspecified; I11.0 Hypertensive heart disease with heart failure; I50.9 Heart failure, unspecified; I25.10 Atherosclerotic heart disease of native coronary artery without angina pectoris; E11.9 Type 2 diabetes mellitus without complications; Z87.891 Personal history of nicotine dependence; Z88.2 Allergy status to sulfonamides; Z88.1 Allergy status to other antibiotic agents
CPT/HCPCS: 36415; 71045; 80053; 82274; 83880; 84484; 85025; 93005; 99285

== ENCOUNTER 2018-12-11 21:54 | Inpatient (IN) | payer MEDICARE, MEDICAID ==
[~2018-12-11] VITALS: Ht 167.6 cm; Wt 83.1 kg
--- NOTE | 2018-12-11 21:57 | ED.ADGEN ---
Past History Past Medical History: Anemia, Anxiety, Arthritis, CAD, CHF, COPD, Diabetes, Hypertension, Pneumonia, Renal Disease, Other Past Surgical History: Other Smoking: Quit Greater Than 1 Year Alcohol Use: None Drug Use: None Adult General Chief Complaint Chief Complaint ".. I was at Dr. Polo office.. ..they did a xray... the said it didn't look like pneumonia... but it sure feels like it.. I just feel terrible..." HPI HPI Patient is a 73 year old female who presents with above hx and complaints cough, shortness of breath and dizzy. Patient seen at Dr. Polo's office and chest x-ray there did not show any obvious pneumonia. No recent travel or specific ill contacts.. No history immunosuppression. Patient has not received flu vaccination this year yet. Patient states he has general malaise, arthralgia and myalgia. Patient notes sometimes she coughs so much she can't get her breath. Pt. states her symptoms are as bad if not worse when she was admitted on 05/25/18 for COPD with Ashmta and bronchospasms.. Patient has significant no history of seasonal asthma exacerbations, sleep apnea, hyperglycemia, chronic renal disease stage III. And diabetes. Review of Systems Review of Systems Constitutional: History of fever or chills [] Eyes: Denies change in visual acuity, redness, or eye pain [] HENT: History of nasal congestion or sore throat [] Respiratory: History of cough or shortness of breath [] Cardiovascular: No additional information not addressed in HPI [] GI: Denies abdominal pain, nausea, vomiting, bloody stools or diarrhea [] : Denies dysuria or hematuria [] Musculoskeletal: Denies back pain or joint pain [] Integument: Denies rash or skin lesions [] Neurologic: Denies headache, focal weakness or sensory changes []complaints of dizziness with coughing episodes Endocrine: Denies polyuria or polydipsia [] All other systems were reviewed and found to be within normal limits, except as documented in this note. Family History Family History Noncontributory Current Medications Current Medications Current Medications Medications (Trade) Dose Ordered Sig/Bita Start Time Stop Time Status Last Admin Dose Admin Aspirin (Children'S Aspirin) 324 mg 1X ONCE 12/11/18 22:00 12/11/18 22:08 DC 12/11/18 22:46 324 MG Lactated Ringer's 1,000 ml @ 100 mls/hr Q10H 12/11/18 22:00 12/12/18 07:59 12/11/18 22:45 100 MLS/HR Allergies Allergies Allergies Coded Allergies Type Severity Reaction Last Updated Verified Sulfa (Sulfonamide Antibiotics) Allergy Intermediate 04/04/18 No niacin Allergy Unknown 05/25/18 Yes Physical Exam Physical Exam Constitutional: Moderate acute distress, non-toxic appearance. [] HENT: Normocephalic, atraumatic, bilateral external ears normal, oropharynx m oist, checked pharynx no oral exudates, nose swollen turbinates and rhinorrhea. Eyes: PERRLA, EOMI, conjunctiva normal, no discharge. []Eyeglasses Neck: Normal range of motion, no tenderness, supple, no stridor. [] Cardiovascular: Tachycardia Heart rate regular rhythm, no murmur [] Lungs & Thorax: Bilateral breath sounds with apex with scattered wheezes throughout on auscultation []episodes of coughing spasms. Abdomen: Bowel sounds normal, soft, no tenderness, no masses, no pulsatile masses. [] Skin: Warm, dry, no erythema, no rash. Poor turgor Back: No tenderness, no CVA tenderness. [] Extremities: No tenderness, no cyanosis, no clubbing, ROM intact, no edema. Arthritic changes Neurologic: Alert and oriented X 3, normal motor function, normal sensory function, no focal deficits noted. [] Psychologic: Affect anxious, judgement normal, mood normal. [] Current Patient Data Vital Signs EKG EKG My interpretation EKG shows a sinus rhythm at 90 bpm. This was nonspecific anterior septal changes but no findings acute STEMI of contralateral changes.[] Radiology/Procedures Radiology/Procedures [address] [address] IMAGING REPORT Signed PATIENT: MAIKEL PINEDO ACCOUNT: [id number] : 1945 LOCATION: ER AGE: 73 SEX: F EXAM STATUS: REG ER ORD. PHYSICIAN: WENDIE ENGLISH MD REASON: Dizzy, weakness, short of air, cough, congestion PROCEDURE: CT HEAD WO CONTRAST EXAM: CT HEAD WITHOUT CONTRAST. HISTORY: Dizziness, weakness. TECHNIQUE: Computed tomography of the head was performed without intravenous contrast. One or more of the following individualized dose reduction techniques were utilized for this examination: 1. Automated exposure control. 2. Adjustment of the mA and/or kV according to patient size. 3. Use of iterative reconstruction technique. COMPARISON: None. FINDINGS: There is no intracranial hemorrhage. There is a chronic lacunar infarct in the left basal ganglia. There is mild chronic microangiopathic white matter change elsewhere. The ventricles are normal in size and position. There is mucosal thickening and fluid in the sphenoid sinus. The orbits are unremarkable. The temporal bones are unremarkable. The calvarium reveals no suspicious lesions. There are atherosclerotic calcifications of the internal carotid and vertebral arteries. IMPRESSION: 1. No acute intracranial findings. 2. Mild chronic microangiopathic white matter change. 3. Acute on chronic sphenoid sinus disease. Electronically signed by: Beto Jack MD (12/11/2018 10:43 PM) [facility] DICTATED AND SIGNED BY: ROJELIO JACK MD DATE: 12/11/182242 CC: GABBY POLO MD; WENDIE ENGLISH MD ~ [][place] [address] IMAGING REPORT Signed PATIENT: MAIKEL PINEDO ACCOUNT: [id number] : 1945 LOCATION: ER AGE: 73 SEX: F EXAM STATUS: REG ER ORD. PHYSICIAN: WENDIE ENGLISH MD REASON: Dizzy, weakness, short of air, cough, congestion PROCEDURE: CHEST PA & LATERAL EXAM: CHEST 2 VIEWS. HISTORY: Dizziness, weakness, cough, shortness of breath. COMPARISON: 09/23/2018. FINDINGS: Frontal and lateral views of the chest are obtained. There are mild perihilar interstitial opacities. The central vasculature is prominent. There is no pneumothorax or pleural effusion. The heart is not enlarged. There are atherosclerotic calcifications of the aorta. IMPRESSION: 1. Correlate for mild volume overload. Electronically signed by: Beto Jakc MD (12/11/2018 10:41 PM) [facility] DICTATED AND SIGNED BY: ROJELIO JACK MD DATE: 12/11/18 224 CC: GABBY POLO MD; WENDIE ENGLISH MD ~ Course & Med Decision Making Course & Med Decision Making Pertinent Labs and Imaging studies reviewed. (See chart for details) Pt. admitted to Dr. Polo for further Eval. and treatment. [] Final Impression Final Impression 1. Acute exacerbation of COPD with asthma 2.[Pneumonia- Perihilar Infiltrates- suspect Viral 3. Elevated D-dimer 2.08 4. Anemia 10.9 5. Elevated Creat and Bun 26/1.9- Renal Insuf. 6. DM = 199 7. Elevated BNP 945 Dragon Disclaimer Dragon Disclaimer This electronic medical record was generated, in whole or in part, using a voice recognition dictation system. Dragon Disclaimer This chart was dictated in whole or in part using Voice Recognition software in a busy, high-work load, and often noisy Emergency Department environment. It may contain unintended and wholly unrecognized errors or omissions. Dragon Disclaimer This chart was dictated in whole or in part using Voice Recognition software in a busy, high-work load, and often noisy Emergency Department environment. It may contain unintended and wholly unrecognized errors or omissions. WENDIE ENGLISH MD Dec 11, 2018 21:57
[2018-12-11] MEDS ORDERED: ASPIRIN 81 MG TAB.CHEW PO ONE (22:00)
[2018-12-11] MEDS ORDERED: IV RINGERS SOLUTION,LACTATED 1,000 ML IV SCH (22:00)
[2018-12-11] MEDS ORDERED: AZITHROMYCIN 250 MG TABLET. PO ONE (22:15)
[2018-12-11] MEDS ORDERED: methylPREDNISolone SOD SUCC PF 125 MG/2 ML VIAL. IV ONE (22:30)
[2018-12-11] MEDS ORDERED: ACETAMINOPHEN 500 MG TABLET PO ONE ×2 (22:39→22:45)
[2018-12-11] MEDS ORDERED: IV NORMAL SALINE 50ML 50 ML ONE (22:39)
[2018-12-11] MEDS ORDERED: cefTRIAXone SODIUM 1 GM VIAL ONE (22:39)
--- NOTE | 2018-12-11 22:44 | RAD ---
EXAM: CHEST 2 VIEWS. HISTORY: Dizziness, weakness, cough, shortness of breath. COMPARISON: 09/23/2018. FINDINGS: Frontal and lateral views of the chest are obtained. There are mild perihilar interstitial opacities. The central vasculature is prominent. There is no pneumothorax or pleural effusion. The heart is not enlarged. There are atherosclerotic calcifications of the aorta. IMPRESSION: 1. Correlate for mild volume overload. Electronically signed by: Beto Jack MD (12/11/2018 10:41 PM) [facility]
--- NOTE | 2018-12-11 22:46 | RAD ---
EXAM: CT HEAD WITHOUT CONTRAST. HISTORY: Dizziness, weakness. TECHNIQUE: Computed tomography of the head was performed without intravenous contrast. One or more of the following individualized dose reduction techniques were utilized for this examination: 1. Automated exposure control. 2. Adjustment of the mA and/or kV according to patient size. 3. Use of iterative reconstruction technique. COMPARISON: None. FINDINGS: There is no intracranial hemorrhage. There is a chronic lacunar infarct in the left basal ganglia. There is mild chronic microangiopathic white matter change elsewhere. The ventricles are normal in size and position. There is mucosal thickening and fluid in the sphenoid sinus. The orbits are unremarkable. The temporal bones are unremarkable. The calvarium reveals no suspicious lesions. There are atherosclerotic calcifications of the internal carotid and vertebral arteries. IMPRESSION: 1. No acute intracranial findings. 2. Mild chronic microangiopathic white matter change. 3. Acute on chronic sphenoid sinus disease. Electronically signed by: Beto Jack MD (12/11/2018 10:43 PM) [facility]
[2018-12-11 23:02] LABS: BASO # 0.1 x10^3/uL (0.0-0.2); BASO % 1 % (0-3); EOS % 1 % (0-3); HEMATOCRIT 33.8 % (36.0-47.0); HEMOGLOBIN 10.9 g/dL (12.0-15.5); LYMPH # 0.8 x10^3/uL (1.0-4.8); LYMPH % 18 % (24-48); MEAN CORPUSCULAR HEMOGLOBIN 32 pg (25-35); MEAN CORPUSCULAR HGB CONC 32 g/dL (31-37); MEAN CORPUSCULAR VOLUME 98 fL (79-100); MONO # 0.4 x10^3/uL (0.0-1.1); MONO % 10 % (0-9); NEUT % 70 % (31-73); PLATELET COUNT 94 x10^3/uL (140-400); RED BLOOD COUNT 3.44 x10^6/uL (3.50-5.40); RED CELL DISTRIBUTION WIDTH 16.1 % (11.5-14.5); WHITE BLOOD COUNT 4.2 x10^3/uL (4.0-11.0)
[2018-12-11 23:20] LABS: CALCIUM 8.5 mg/dL (8.5-10.1); CREATININE 1.9 mg/dL (0.6-1.0); DIRECT BILIRUBIN 0.4 mg/dL (0.0-0.2); GFR 25.9; MAGNESIUM 1.8 mg/dL (1.8-2.4); POTASSIUM 4.1 mmol/L (3.5-5.1); TOTAL BILIRUBIN 0.9 mg/dL (0.2-1.0); TOTAL PROTEIN 7.1 g/dL (6.4-8.2)
[2018-12-11 23:21] LABS: INFLUENZA A PATIENT NEGATIVE (NEGATIVE); INFLUENZA B PATIENT NEGATIVE (NEGATIVE)
[2018-12-11] MEDS ORDERED: ONDANSETRON PF 4 MG/2 ML VIAL. IV PRN (23:30)
[2018-12-11] MEDS ORDERED: ACETAMINOPHEN 325 MG TABLET PO PRN (23:30)
[2018-12-12 01:22] VITALS: BP 92/62
[2018-12-12 02:07] LABS: BARBITURATES NEG (NEG); BENZODIAZEPINES NEG (NEG); CANNABINOIDS NEG (NEG); COCAINE NEG (NEG); METHADONE NEG (NEG); OPIATES NEG (NEG); PHENCYCLIDINE NEG (NEG)
[2018-12-12 02:09] LABS: AMPHETAMINE/METHAMPHETAMINE NEG (NEG)
[2018-12-12 02:11] LABS: BACTERIA,URINE MANY /HPF (0-FEW); BILIRUBIN,URINE NEG (NEG); CLARITY,URINE HAZY; COLOR,URINE YELLOW; GLUCOSE,URINE NEG (NEG); NITRITE,URINE NEG (NEG); RBC,URINE OCC /HPF (0-2); SQUAMOUS EPITHELIAL CELL,UR FEW /LPF; UROBILINOGEN,URINE 0.2 mg/dL (0.2 mg/dL); WBC,URINE >40 /HPF (0-4)
[2018-12-12] MEDS ORDERED: IPRATRPIUM/ALBUTEROL 0.5/2.5MG 3 ML NEBU. ONE (04:26)
[2018-12-12] MEDS ORDERED: OXYB10TA2 PO (04:51)
[2018-12-12] MEDS ORDERED: PANT20TA3 PO (04:51)
[2018-12-12] MEDS: IPRATRPIUM/ALBUTEROL 0.5/2.5MG 3 ML NEBU. NEB SCH ×4 (05:11→19:52)
[2018-12-12 05:13] VITALS: BP 99/61
--- NOTE | 2018-12-12 05:57 | EKG ---
[address] [address] Test Date: 2018-12-11 Test Time: 22:10:18 Pat Name: MAIKEL PINEDO Department: Room: Gender: F [employer]: PRASANTH : 1945 Requested By: WENDIE ENGLISH Order Number: [id number] Reading MD: Measurements Intervals [place] Rate: 109 P: 45 OK: 162 QRS: 6 QRSD: 72 T: 33 QT: 320 QTc: 432 Interpretive Statements SINUS TACHYCARDIA QRS(T) CONTOUR ABNORMALITY CONSIDER ANTEROSEPTAL MYOCARDIAL DAMAGE CONSISTENT WITH INFERIOR INFARCT PROBABLY OLD ABNORMAL ECG RI6.01 No previous ECG available for comparison
[2018-12-12 06:42] LABS: BASO % 1 % (0-3); EOS % 0 % (0-3); HEMATOCRIT 30.9 % (36.0-47.0); LYMPH # 0.6 x10^3/uL (1.0-4.8); LYMPH % 36 % (24-48); MEAN CORPUSCULAR HEMOGLOBIN 32 pg (25-35); MEAN CORPUSCULAR HGB CONC 32 g/dL (31-37); MEAN CORPUSCULAR VOLUME 98 fL (79-100); MONO # 0.1 x10^3/uL (0.0-1.1); MONO % 4 % (0-9); NEUT % 60 % (31-73); PLATELET COUNT 76 x10^3/uL (140-400); RED BLOOD COUNT 3.15 x10^6/uL (3.50-5.40); RED CELL DISTRIBUTION WIDTH 16.1 % (11.5-14.5)
[2018-12-12 06:53] LABS: CREATININE 1.8 mg/dL (0.6-1.0); GFR 27.6; POTASSIUM 4.4 mmol/L (3.5-5.1)
[2018-12-12] MEDS ORDERED: PIP/TAZO PER PHARMACY MC PRN (07:32)
[2018-12-12] MEDS ORDERED: ASPIRIN 81 MG TAB.CHEW PO SCH (08:00)
[2018-12-12] MEDS: LEVOTHYROXINE 150 MCG TABLET PO SCH (08:16)
[2018-12-12] MEDS: OXYBUTYNIN CHLORIDE 5 MG TABLET PO SCH ×2 (08:17→20:05)
[2018-12-12] MEDS: ASPIRIN 81 MG TAB.CHEW PO SCH (08:17)
[2018-12-12] MEDS: PANTOPRAZOLE 40 MG TABLET. PO SCH (08:17)
[2018-12-12] MEDS: PIPERACILLIN/TAZOBACTAM 2.25 GM in IV NORMAL SALINE 50ML 50 ML IV SCH ×3 (08:17→19:26)
[2018-12-12 08:44] LABS: % ATYL 3 % (0-0); % BANDS 12 % (0-9); % BASOS 1 % (0-3); % EOS 1 % (0-5); % LYMPHS 33 % (24-48); % MONOS 1 % (0-10); % SEGS 49 % (35-66)
[2018-12-12] MEDS ORDERED: CHOLECALCIFEROL (VITAMIN D3) 1,000 UNIT TABLET PO SCH (09:00)
[2018-12-12] MEDS ORDERED: ENOXAPARIN ** NOTE DOSE ** SYRINGE SQ ONE (09:00)
[2018-12-12] MEDS ORDERED: FUROSEMIDE 20 MG TABLET PO SCH (09:00)
[2018-12-12] MEDS ORDERED: methylPREDNISolone SOD SUCC PF 125 MG/2 ML VIAL. IM SCH (09:00)
[2018-12-12] MEDS ORDERED: LINAGLIPTIN 5 MG TABLET PO SCH (09:00)
[2018-12-12] MEDS ORDERED: LOSARTAN 50 MG TABLET. PO SCH (09:00)
[2018-12-12] MEDS ORDERED: ATORVASTATIN CALCIUM 10 MG TABLET. PO SCH (09:00)
[2018-12-12 09:03] LABS: PLT ESTIMATE DECREASED (ADEQUATE)
--- NOTE | 2018-12-12 10:08 | PDOC2 ---
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 Domingo SOURCE Source: Chart review, Patient HPI History of Present Illness This is a 73 yo female who presented secondary to cough, shortness of breath, and dizziness. Patient reports she has been short of breath for "as long as I can remember". Has cardiac history as noted below. Follows with Dr. Vaughn of cardiology. Was seen over the summer with complaint of TIWARI and intermittent chest pain. Echo was conducted, which showed normal LV systolic function. Lasix was increased to 20mg BID at that time. Patient has been treated on an outpatient basis with steroids, breathing treatments, and antibiotics, without any significant improvement. Continue to have dyspnea with minimal exertion. This week, hasn't been feeling well and has been increasingly weak. No known fevers, but was febrile upon arrival. Yesterday, had episode of aching in her left chest. Radiated down and around to her abdomen. [place] slightly nauseated and was dizzy. No diaphoresis or palpitations. No LE edema. PAST MEDICAL HISTORY Cardiovascular: CAD, CHF, HTN, hyperipidemia Pulmonary: Asthma, COPD GI: Other (esophageal varices ) Heme/Onc: Anemia NOS Hepatobiliary: Cirrhosis Musculoskeletal: Osteoarthritis Renal/: Chronic renal insuff Endocrine: Diabetes, Hypothyroidism PAST SURGICAL HISTORY Past Surgical History: Appendectomy, Cholecystectomy, Hysterectomy FAMILY HISTORY Family History: Heart Disease SOCIAL HISTORY Social History Smoke: No, smoked for a few years as a young woman ALCOHOL: none Drugs: None Lives: with Family CURRENT MEDICATIONS Current Medications Current Medications Aspirin (Children'S Aspirin) 324 mg 1X ONCE PO Last administered on 12/11/18at 22:46; Start 12/11/18 at 22:00; Stop 12/11/18 at 22:08; Status DC Lactated Ringer's 1,000 ml @ 100 mls/hr Q10H IV Last administered on 12/11/18at 22:45; Start 12/11/18 at 22:00; Stop 12/12/18 at 07:59; Status DC Ceftriaxone Sodium 1 gm/ Sodium Chloride 50 ml @ 100 mls/hr 1X ONCE IV Last administered on 12/11/18at 22:46; Start 12/11/18 at 22:15; Stop 12/11/18 at 22:44; Status DC Azithromycin (Zithromax) 500 mg 1X ONCE PO Last administered on 12/11/18at 22:47; Start 12/11/18 at 22:15; Stop 12/11/18 at 22:16; Status DC Methylprednisolone Sodium Succinate (SOLU-Medrol 125MG VIAL) 125 mg 1X ONCE IV Last administered on 12/11/18at 22:46; Start 12/11/18 at 22:30; Stop 12/11/18 at 22:31; Status DC Acetaminophen (Tylenol) 1,000 mg 1X ONCE PO Last administered on 12/11/18at 22:46; Start 12/11/18 at 22:45; Stop 12/11/18 at 22:46; Status DC Sodium Chloride 50 ml @ As Directed STK-MED ONCE .ROUTE ; Start 12/11/18 at 22:39; Stop 12/11/18 at 22:39; Status DC Acetaminophen (Tylenol) 500 mg STK-MED ONCE PO ; Start 12/11/18 at 22:39; Stop 12/11/18 at 22:39; Status DC Ceftriaxone Sodium (Rocephin) 1 gm STK-MED ONCE .ROUTE ; Start 12/11/18 at 22:39; Stop 12/11/18 at 22:40; Status DC Ondansetron HCl (Zofran) 4 mg PRN Q4HRS PRN IV NAUSEA/VOMITING; Start 12/11/18 at 23:30; Stop 12/12/18 at 23:29 Acetaminophen (Tylenol) 650 mg PRN Q4HRS PRN PO FEVER; Start 12/11/18 at 23:30; Stop 12/12/18 at 23:29 Albuterol/ Ipratropium (Duoneb) 3 ml RTQID NEB Last administered on 12/12/18at 09:51; Start 12/12/18 at 08:00; Stop 12/13/18 at 07:59 Enoxaparin Sodium (Lovenox 80mg Syringe) 80 mg BID ONCE SQ ; Start 12/12/18 at 09:00; Stop 12/12/18 at 09:11; Status DC Aspirin (Children'S Aspirin) 81 mg DAILYWBKFT PO ; Start 12/12/18 at 08:00; Stop 12/12/18 at 07:20; Status DC Azithromycin (Zithromax) 250 mg HS PO ; Start 12/12/18 at 21:00; Stop 12/12/18 at 07:25; Status DC Ceftriaxone Sodium 1 gm/ Sodium Chloride 50 ml @ 100 mls/hr Q24H IV ; Start 12/12/18 at 22:00; Stop 12/12/18 at 07:25; Status DC Methylprednisolone Sodium Succinate (SOLU-Medrol 125MG VIAL) 75 mg DAILY IM ; Start 12/12/18 at 09:00; Stop 12/12/18 at 07:25; Status DC Albuterol/ Ipratropium (Duoneb) 3 ml STK-MED ONCE .ROUTE ; Start 12/12/18 at 04:26; Stop 12/12/18 at 04:27; Status DC Influenza Virus Vaccine Quadrival (Afluria Quad 2019-20 (3yr Up) Syringe) 0.5 ml ONCE ONCE VAX IM ; Start 12/13/18 at 09:00; Stop 12/13/18 at 09:01 Aspirin (Children'S Aspirin) 81 mg DAILY PO Last administered on 12/12/18at 08:17; Start 12/12/18 at 09:00 Vitamin D (Vitamin D3) 3,000 unit DAILY PO Last administered on 12/12/18at 08:16; Start 12/12/18 at 09:00 Furosemide (Lasix) 20 mg DAILY PO ; Start 12/12/18 at 09:00 Levothyroxine Sodium (Synthroid) 150 mcg DAILYAC PO Last administered on 12/12/18at 08:16; Start 12/12/18 at 07:30 Linagliptin (Tradjenta) 5 mg DAILY PO Last administered on 12/12/18at 08:17; Start 12/12/18 at 09:00 Non-Formulary Medication (Insulin Degludec (Tresiba Flextouch U-200)) 20 unit HS SQ ; Start 12/12/18 at 21:00; Stop 12/12/18 at 07:39; Status DC Losartan Potassium (Cozaar) 100 mg DAILY PO ; Start 12/12/18 at 09:00 Oxybutynin Chloride (Ditropan) 5 mg BID PO Last administered on 12/12/18at 08:17; Start 12/12/18 at 09:00 Pantoprazole Sodium (Protonix) 40 mg DAILYAC PO Last administered on 12/12/18at 08:17; Start 12/12/18 at 07:30 Atorvastatin Calcium (Lipitor) 10 mg DAILY PO Last administered on 12/12/18at 08:17; Start 12/12/18 at 09:00 Piperacillin Sod/ Tazobactam Sod (Zosyn Per Pharmacy) 1 each PRN DAILY PRN MC DOSING PER PHARMACY; Start 12/12/18 at 07:32 Levofloxacin/ Dextrose 150 ml @ 150 mls/hr Q48H IV Last administered on 12/12/18at 08:58; Start 12/12/18 at 09:00 Piperacillin Sod/ Tazobactam Sod 2.25 gm/Sodium Chloride 50 ml @ 100 mls/hr Q6H IV Last administered on 12/12/18at 08:17; Start 12/12/18 at 08:00 Insulin Glargine (Lantus Syringe) 20 unit QHS SQ ; Start 12/12/18 at 21:00 Active Scripts Active Aspirin 81 Mg Tab.chew 81 Mg PO DAILY Lasix (Furosemide) 20 Mg Tablet 1 Tab PO DAILY Reported Pantoprazole Sodium 20 Mg Tablet.dr 20 Mg PO DAILY Oxybutynin Chloride Er (Oxybutynin Chloride) 10 Mg Tab.er.24 10 Mg PO DAILY Levothyroxine Sodium 150 Mcg Tablet 150 Mcg PO DAILYAC Vitamin D3 (Cholecalciferol (Vitamin D3)) 1,000 Unit Tablet 3,000 Unit PO DAILY Pravastatin Sodium 40 Mg Tablet 1 Tab PO DAILY Tresiba Flextouch U-200 (Insulin Degludec) 200 Unit/1 Ml Insuln.pen 20 Unit SQ HS Tradjenta (Linagliptin) 5 Mg Tablet 1 Tab PO DAILY Alendronate Sodium 70 Mg Tablet 1 Tab PO WEEKLY Losartan Potassium 100 Mg Tablet 100 Mg PO DAILY ALLERGIES Allergies: Coded Allergies: Sulfa (Sulfonamide Antibiotics) (Unverified Allergy, Intermediate, 03/16 03/02) niacin (Verified Allergy, Unknown, 05/25/18) ROS Review of Systems 14 point ROS conducted with pertinent positives noted above in HPI. PHYSICAL EXAM Physical Exam General: Alert, Oriented X3, Cooperative, No acute distress HEENT: Atraumatic, Mucous membr. moist/pink Lungs: Clear to auscultation, diminished Heart: Regular rate (SR), Normal S1, Normal S2, Other (S4; 3/6 diastolic murmur to OTIS border) Abdomen: Soft, No tenderness Extremities: No cyanosis, No edema Skin: No breakdown, No significant lesion Neuro: Normal speech, Sensation intact Psych/Mental Status: Mental status NL, Mood NL MUSCULOSKELETAL: Osteoarthritic changes both hands VITALS Vital Signs Vital Signs Date Time Temp Pulse Resp B/P (MAP) Pulse Ox O2 Delivery O2 Flow Rate FiO2 12/12/18 09:52 96 Room Air 12/12/18 08:24 73 99/61 12/12/18 05:13 97.6 20 LABS LABS Laboratory Tests Test 12/11/18 22:10 12/11/18 22:40 12/11/18 22:50 12/12/18 01:46 Influenza Type A (Rapid) Negative (NEGATIVE) Influenza Type B (Rapid) Negative (NEGATIVE) White Blood Count 4.2 x10^3/uL (4.0-11.0) Red Blood Count 3.44 x10^6/uL (3.50-5.40) Hemoglobin 10.9 g/dL (12.0-15.5) Hematocrit 33.8 % (36.0-47.0) Mean Corpuscular Volume 98 fL (79-100) Mean Corpuscular Hemoglobin 32 pg (25-35) Mean Corpuscular Hemoglobin Concent 32 g/dL (31-37) Red Cell Distribution Width 16.1 % (11.5-14.5) Platelet Count 94 x10^3/uL (140-400) Neutrophils (%) (Auto) 70 % (31-73) Lymphocytes (%) (Auto) 18 % (24-48) Monocytes (%) (Auto) 10 % (0-9) Eosinophils (%) (Auto) 1 % (0-3) Basophils (%) (Auto) 1 % (0-3) Neutrophils # (Auto) 3.0 x10^3uL (1.8-7.7) Lymphocytes # (Auto) 0.8 x10^3/uL (1.0-4.8) Monocytes # (Auto) 0.4 x10^3/uL (0.0-1.1) Eosinophils # (Auto) 0.0 x10^3/uL (0.0-0.7) Basophils # (Auto) 0.1 x10^3/uL (0.0-0.2) Prothrombin Time 12.1 SEC (9.4-11.4) Prothromb Time International Ratio 1.2 (0.9-1.1) Activated Partial Thromboplast Time 32 SEC (23-33) D-Dimer (Sweetie) 2.08 mg/L (0.00-0.50) Sodium Level 135 mmol/L (136-145) Potassium Level 4.1 mmol/L (3.5-5.1) Chloride Level 100 mmol/L (98-107) Carbon Dioxide Level 26 mmol/L (21-32) Anion Gap 9 (6-14) Blood Urea Nitrogen 26 mg/dL (7-20) Creatinine 1.9 mg/dL (0.6-1.0) Estimated GFR (Cockcroft-Gault) 25.9 Glucose Level 199 mg/dL (70-99) Calcium Level 8.5 mg/dL (8.5-10.1) Magnesium Level 1.8 mg/dL (1.8-2.4) Total Bilirubin 0.9 mg/dL (0.2-1.0) Direct Bilirubin 0.4 mg/dL (0.0-0.2) Aspartate Amino Transf (AST/SGOT) 33 U/L (15-37) Alanine Aminotransferase (ALT/SGPT) 13 U/L (14-59) Alkaline Phosphatase 109 U/L (46-116) Creatine Kinase 251 U/L (26-192) Troponin I Quantitative < 0.017 ng/mL (0-0.055) XZ-Sxg-R-Type Natriuretic Peptide 945 pg/mL (0-124) Total Protein 7.1 g/dL (6.4-8.2) Albumin 3.0 g/dL (3.4-5.0) Lipase 185 U/L (73-393) Group A Streptococcus Rapid Negative (NEGATIVE) Urine Collection Type Unknown Urine Color Yellow Urine Clarity Hazy Urine pH 5.5 Urine Specific [place] 1.010 Urine Protein Neg (NEG-TRACE) Urine Glucose (UA) Neg mg/dL (NEG) Urine Ketones (Stick) Neg mg/dL (NEG) Urine Blood Trace (NEG) Urine Nitrite Neg (NEG) Urine Bilirubin Neg (NEG) Urine Urobilinogen Dipstick 0.2 mg/dL (0.2 mg/dL) Urine Leukocyte Esterase Large (NEG) Urine RBC Occ /HPF (0-2) Urine WBC >40 /HPF (0-4) Urine Squamous Epithelial Cells Few /LPF Urine Bacteria Many /HPF (0-FEW) Urine Opiates Screen Neg (NEG) Urine Methadone Screen Neg (NEG) Urine Barbiturates Neg (NEG) Urine Phencyclidine Screen Neg (NEG) Urine Amphetamine/Methamphetamine Neg (NEG) Urine Benzodiazepines Screen Neg (NEG) Urine Cocaine Screen Neg (NEG) Urine Cannabinoids Screen Neg (NEG) Urine Ethyl Alcohol Neg (NEG) Test 12/12/18 06:17 12/12/18 07:35 12/12/18 07:45 White Blood Count 1.7 x10^3/uL (4.0-11.0) Red Blood Count 3.15 x10^6/uL (3.50-5.40) Hemoglobin 10.0 g/dL (12.0-15.5) Hematocrit 30.9 % (36.0-47.0) Mean Corpuscular Volume 98 fL (79-100) Mean Corpuscular Hemoglobin 32 pg (25-35) Mean Corpuscular Hemoglobin Concent 32 g/dL (31-37) Red Cell Distribution Width 16.1 % (11.5-14.5) Platelet Count 76 x10^3/uL (140-400) Neutrophils (%) (Auto) 60 % (31-73) Lymphocytes (%) (Auto) 36 % (24-48) Monocytes (%) (Auto) 4 % (0-9) Eosinophils (%) (Auto) 0 % (0-3) Basophils (%) (Auto) 1 % (0-3) Neutrophils # (Auto) 1.0 x10^3uL (1.8-7.7) Lymphocytes # (Auto) 0.6 x10^3/uL (1.0-4.8) Monocytes # (Auto) 0.1 x10^3/uL (0.0-1.1) Eosinophils # (Auto) 0.0 x10^3/uL (0.0-0.7) Basophils # (Auto) 0.0 x10^3/uL (0.0-0.2) Segmented Neutrophils % 49 % (35-66) Band Neutrophils % 12 % (0-9) Lymphocytes % 33 % (24-48) Atypical Lymphocytes % (Manual) 3 % (0-0) Monocytes % 1 % (0-10) Eosinophils % 1 % (0-5) Basophils % 1 % (0-3) Platelet Estimate Decreased (ADEQUATE) Sodium Level 136 mmol/L (136-145) Potassium Level 4.4 mmol/L (3.5-5.1) Chloride Level 102 mmol/L (98-107) Carbon Dioxide Level 24 mmol/L (21-32) Anion Gap 10 (6-14) Blood Urea Nitrogen 34 mg/dL (7-20) Creatinine 1.8 mg/dL (0.6-1.0) Estimated GFR (Cockcroft-Gault) 27.6 Glucose Level 289 mg/dL (70-99) Calcium Level 8.0 mg/dL (8.5-10.1) Lactic Acid Level 1.3 mmol/L (0.4-2.0) Glucose (Fingerstick) 272 mg/dL (70-99) ECHOCARDIOGRAM Echocardiogram <Conclusion> The left ventricular systolic function is normal. The ejection fraction is estimated at 60%. There is normal LV segmental wall motion. Moderate aortic regurgitation. Mild mitral regurgitation. Mild to moderate tricuspid regurgitation. The PA pressure was estimated at 48 mmHg. There is no evidence of significant pericardial effusion. DATE: 06/06/17 1554 <Conclusion> The left ventricular systolic function is normal. The Ejection Fraction is 55-60%. There is normal LV segmental wall motion. Mild aortic regurgitation. Trace to mild mitral regurgitation. Trace tricuspid regurgitation with an estimated PAP of 46 mmHg. There is mild-moderate pulmonary hypertension. There is no evidence of significant pericardial effusion. DATE: 09/25/18 145 STRESS TEST Stress Test 06/19/17 - Procedure: D-SPECT MULTI GATED THALLIUM REGADENOSON MPI STRESS TEST SUMMARY/OPINION: Myocardial perfusion imaging study is abnormal but probably not high risk. There is an inferior wall perfusion abnormality mainly seen at the base of the heart that is compatible with scar and ischemia, ischemia does appear to be the predominant component. This perfusion abnormality is not seen in mid ventricular cavity and left ventricular apex, and this could be due to collateral circulation. There are no other perfusion abnormalities. Normal left ventricular systolic function, ejection fraction of 68%, there are no wall motion abnormalities. Normal pulmonary to myocardial count ratio and normal left ventricular end-diastolic volume. No previous study available for comparison. HEART CATH Heart Cath 03/31/14-Cath ([facility]): EF 60%. Normal Left main coronary artery. 90% stenosis in the distal LAD. First obtuse marginal branch with a 80-90% stenosis in the proximal segment. 70-80% stenosis in the mid RCA. 04/27/14: Drug-eluting stent PCI of LAD, CFX and RCA by Dr. Ferrell ASSESSMENT/PLAN Assessment/Plan 1. Dyspnea, upon minimal exertion 2. Mild acute on chronic diastolic CHF; CXR with mild congestion. Recent echo with preserved LV systolic function 3. Pancytopenia 4. Fevers. Probable UTI 5. DANIELLE on CKD 6. CAD s/p PCI/GERALD to the LAD, CFX and RCA 04/2014. Follows with Dr. Vaughn of cardiology. 7. Hypertension; BP low end 8. Hyperlipidemia; statin therapy 9. Diabetes, II Recommendations Etiology of significant TIWARI unclear. Does not appear to be significantly fluid overloaded ? Coronary component Will obtain VQ scan to r/o PE Continue oral lasix thearpy. Additional PRN Continue secondary prevention measures Consider further ischemic evaluation BRYANT CORTES MD 12/13/18 0839: CARDIAC CONSULT ASSESSMENT/PLAN Assessment/Plan Late entry for 12/12/2018 Pt. seen and examined. Will transfer to [facility] for right and left heart cath due to refractory dyspnea GIGI MAN APRN Dec 12, 2018 10:08 BRYANT CORTES MD Dec 13, 2018 08:39
[2018-12-12 10:45] VITALS: BP 96/59
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
--- NOTE | 2018-12-12 13:15 | EKG ---
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
[2018-12-12] MEDS ORDERED: INSULIN GLARGINE SYRINGE. SQ SCH (13:30)
[2018-12-12] MEDS ORDERED: DEXTROSE 50% 25 GM / 50ML DISP.SYRIN. IV PRN (13:30)
[2018-12-12] MEDS: INSULIN LISPRO 300 UNITS/3 ML VIAL. SQ SCH ×2 (13:53→16:54)
--- NOTE | 2018-12-12 14:07 | RAD ---
LUNG VENT/PERFUSION SCAN(VQ) History: Elevated d-dimer. Cough. Weakness. Short of breath. Comparison: Chest x-ray December 11, 2018. VQ scan February 20, 2018 Findings: Ventilation perfusion examination was performed. Ventilation images were acquired after the patient inhaled 17.5 mCi of xenon gas. Perfusion images were acquired after the patient was injected with 6.6 mCi of technetium 99m MAA. Symmetric inspiration of xenon gas and rapid expiration. Mild retention of radiotracer within the right lower lung. No significant perfusion defects identified. Interpretation using PIOPED 2 criteria Impression: 1. Very low probability for pulmonary embolism. Electronically signed by: Abhilash Bryson DO (12/12/2018 2:05 PM) [facility]
[2018-12-12 16:02] VITALS: BP 104/65
[2018-12-12 19:16] VITALS: BP 92/51
[2018-12-12] MEDS ORDERED: NON FORMULARY ITEM (Insulin Degludec (Tresiba Flextouch U-200) 20 UNIT) SQ SCH (21:00)
[2018-12-12] MEDS ORDERED: AZITHROMYCIN 250 MG TABLET. PO SCH (21:00)
[2018-12-12] MEDS ORDERED: INSULIN LISPRO 300 UNITS/3 ML VIAL. SQ ONE (21:30)
[2018-12-13 00:16] VITALS: BP 102/58
[2018-12-13] MEDS: PIPERACILLIN/TAZOBACTAM 2.25 GM in IV NORMAL SALINE 50ML 50 ML IV SCH ×2 (02:02→08:02)
[2018-12-13] MEDS ORDERED: ACETAMINOPHEN 325 MG TABLET PO PRN (03:15)
[2018-12-13 05:11] VITALS: BP 103/62
[2018-12-13] MEDS: IPRATRPIUM/ALBUTEROL 0.5/2.5MG 3 ML NEBU. NEB SCH (06:00)
[2018-12-13 06:21] LABS: BASO % 1 % (0-3); CALCIUM 7.9 mg/dL (8.5-10.1); EOS % 1 % (0-3); GFR 24.4; HEMATOCRIT 28.7 % (36.0-47.0); HEMOGLOBIN 9.3 g/dL (12.0-15.5); LYMPH % 24 % (24-48); MEAN CORPUSCULAR HEMOGLOBIN 32 pg (25-35); MEAN CORPUSCULAR HGB CONC 32 g/dL (31-37); MEAN CORPUSCULAR VOLUME 98 fL (79-100); MONO # 0.4 x10^3/uL (0.0-1.1); MONO % 9 % (0-9); NEUT # 2.7 x10^3uL (1.8-7.7); NEUT % 65 % (31-73); PLATELET COUNT 79 x10^3/uL (140-400); POTASSIUM 3.5 mmol/L (3.5-5.1); RED BLOOD COUNT 2.93 x10^6/uL (3.50-5.40); WHITE BLOOD COUNT 4.1 x10^3/uL (4.0-11.0)
[2018-12-13] MEDS: LEVOTHYROXINE 150 MCG TABLET PO SCH (07:30)
[2018-12-13] MEDS: PANTOPRAZOLE 40 MG TABLET. PO SCH (07:30)
[2018-12-13] MEDS ORDERED: ONDANSETRON PF 4 MG/2 ML VIAL. IVP PRN (07:45)
[2018-12-13] MEDS: INSULIN LISPRO 300 UNITS/3 ML VIAL. SQ SCH (08:00)
[2018-12-13] MEDS ORDERED: FLU VAX QS 2019-20 (36MOS+)/PF 0.5 ML SYRINGE. VAX IM ONE (09:00)
[2018-12-13 09:38] VITALS: BP 103/62
[2018-12-13] MEDS: ASPIRIN 81 MG TAB.CHEW PO SCH (09:56)
[2018-12-13 13:12] LABS: WHITE BLOOD COUNT 1.7 x10^3/uL (4.0-11.0)
--- NOTE | 2018-12-14 23:58 | DS ---
DATE OF DISCHARGE: 12/13/2018 HOSPITAL COURSE: A 73-year-old female. She was initially seen over at the office, came in through the Emergency Room. The patient was having increased dizziness, dyspnea and shortness of breath with exertion. The patient was having difficulty in breathing and she was noted to have greater than 40 white blood cells per high powered field. In any case, the patient was admitted and placed on aggressive pulmonary toilet. Her white count went down to 1.7, hemoglobin and hematocrit 10 and 30.9. She did have 12 bands, so she was considered septic. She was placed on double antibiotics. Her creatinine was elevated to 2 and her GFR was only 24, so she was also noted to have a problem there. She was also a type 2 diabetic and the patient was seen also by Cardiology and made further assessment on that as indicated. Dr. Clark saw her and the patient was transferred down to [facility] for further evaluation such as a heart catheterization per his recommendation. The patient did seem to be making good progress, however, with the antibiotic therapy that we had started her on and there were no complications from that regard anyway. IMPRESSION: Sepsis secondary to urinary tract infection, organism unspecified; leukopenia; anemia of chronic disease; acute respiratory distress; hyperglycemia; elevated D-dimer; chronic kidney disease stage 3. Slight hypothyroidism, TSH of 5.0. PLAN: The patient will be transferred via EMS and take no orders for now until she is evaluated down there at the [facility] per Dr. Clark. GABBY POLO MD DR: CHEMA/bri JOB#: [id number] / [id number]
== END 2018-12-13 10:15 | disposition short-term general hospital (02) | DRG 871 ==
LOC: ER 21:54 → 1 SOUTH 22:00
PROVIDERS: ADMIT Family Medicine; ATTEND Family Medicine
DX: A41.9 Sepsis, unspecified organism (principal); J18.9 Pneumonia, unspecified organism; I50.33 Acute on chronic diastolic (congestive) heart failure; J44.1 Chronic obstructive pulmonary disease with (acute) exacerbation; J44.0 Chronic obstructive pulmonary disease with (acute) lower respiratory infection; D61.818 Other pancytopenia; N17.9 Acute kidney failure, unspecified; I13.0 Hypertensive heart and chronic kidney disease with heart failure and stage 1 through stage 4 chronic kidney disease, or unspecified chronic kidney disease; N39.0 Urinary tract infection, site not specified; F41.9 Anxiety disorder, unspecified; M19.90 Unspecified osteoarthritis, unspecified site; I25.10 Atherosclerotic heart disease of native coronary artery without angina pectoris; Z87.891 Personal history of nicotine dependence; Z88.2 Allergy status to sulfonamides; Z88.8 Allergy status to other drugs, medicaments and biological substances; E11.22 Type 2 diabetes mellitus with diabetic chronic kidney disease; K21.9 Gastro-esophageal reflux disease without esophagitis; Z90.710 Acquired absence of both cervix and uterus; Z90.49 Acquired absence of other specified parts of digestive tract; E03.9 Hypothyroidism, unspecified; Z82.49 Family history of ischemic heart disease and other diseases of the circulatory system; D63.8 Anemia in other chronic diseases classified elsewhere; E11.65 Type 2 diabetes mellitus with hyperglycemia; E78.5 Hyperlipidemia, unspecified; N18.3 Chronic kidney disease, stage 3 (moderate); Z95.5 Presence of coronary angioplasty implant and graft; E78.00 Pure hypercholesterolemia, unspecified
CPT/HCPCS: 36415; 70450; 71046; 78582; 80048; 80061; 80076; 80307; 81001; 82550; 82947; 83605; 83690; 83735; 83880; 84443; 84484; 85007; 85025; 85379; 85610; 85730; 87040; 87070; 87086; 87186; 87804; 87880; 93005; 94640; 96365; 96374; 96375; A9540; A9558; J0456; J0696; J1815; J1956; J2405; J2543; J2930; J7120; J7620; 99285-25

== ENCOUNTER 2019-04-15 14:22 | Inpatient (IN) | payer MEDICAID, MEDICARE ==
[~2019-04-15] VITALS: Ht 167.6 cm; Wt 84.8 kg
[~2019-04-15 14:22] MED LIST changes: +OXYB10TA26 PO; +PANT20TA3 PO
[2019-04-15] MEDS ORDERED: IV NORMAL SALINE 1,000ML 1,000 ML IV SCH (15:04)
[2019-04-15 15:30] LABS: BASO % 2 % (0-3); EOS # 0.1 x10^3/uL (0.0-0.7); EOS % 6 % (0-3); HEMATOCRIT 28.3 % (36.0-47.0); HEMOGLOBIN 8.8 g/dL (12.0-15.5); LYMPH # 0.7 x10^3/uL (1.0-4.8); LYMPH % 30 % (24-48); MEAN CORPUSCULAR HEMOGLOBIN 28 pg (25-35); MEAN CORPUSCULAR HGB CONC 31 g/dL (31-37); MEAN CORPUSCULAR VOLUME 90 fL (79-100); MONO # 0.2 x10^3/uL (0.0-1.1); MONO % 10 % (0-9); NEUT # 1.2 x10^3uL (1.8-7.7); NEUT % 52 % (31-73); PLATELET COUNT 92 x10^3/uL (140-400); RED BLOOD COUNT 3.15 x10^6/uL (3.50-5.40); RED CELL DISTRIBUTION WIDTH 16.9 % (11.5-14.5); WHITE BLOOD COUNT 2.3 x10^3/uL (4.0-11.0)
[2019-04-15 15:39] LABS: CALCIUM 8.2 mg/dL (8.5-10.1); CREATININE 1.3 mg/dL (0.6-1.0); GFR 40.2; POTASSIUM 4.3 mmol/L (3.5-5.1)
--- NOTE | 2019-04-15 15:47 | PHYS DOC ---
Past History Past Medical History: Anemia, Anxiety, Arthritis, CAD, CHF, COPD, Diabetes, Hypertension, Pneumonia, Renal Disease, Other Past Surgical History: Cholecystectomy, Hysterectomy, Tonsillectomy Smoking: Quit Greater Than 1 Year Alcohol Use: None Drug Use: None Adult General Chief Complaint Chief Complaint: SHORTNESS OF BREATH [facility] HPI Patient is a 73 year old female who presents with complaint of right-sided flank pain and shortness of breath. Patient states that her right-sided flank pain started within the last 2 days. Has noted burning with urination. Notes that she went to see her primary care provider today to have this evaluated. Patient was noted to be short of breath. She notes that she does get very short of breath when walking and states that she is supposed be wearing oxygen while walking and at nighttime but states that she has not been able to afford to continue this over the past several months. Has documented history of CHF, COPD, and chronic renal disease. Also Dr. Polo for primary care. Denies any associated fever Review of Systems Review of Systems Constitutional: Denies fever or chills [] Eyes: Denies change in visual acuity, redness, or eye pain [] HENT: Denies nasal congestion or sore throat [] Respiratory: Denies cough or shortness of breath [] Cardiovascular: No additional information not addressed in HPI [] GI: Denies abdominal pain, nausea, vomiting, bloody stools or diarrhea [] : Denies dysuria or hematuria [] Musculoskeletal: Denies back pain or joint pain [] Integument: Denies rash or skin lesions [] Neurologic: Denies headache, focal weakness or sensory changes [] Endocrine: Denies polyuria or polydipsia [] All other systems were reviewed and found to be within normal limits, except as documented in this note. Current Medications Current Medications Current Medications Medications (Trade) Dose Ordered Sig/Bita Start Time Stop Time Status Last Admin Dose Admin Sodium Chloride 1,000 ml @ 125 mls/hr Q8H 04/15/19 15:04 04/15/19 23:03 04/15/19 15:31 125 MLS/HR Allergies Allergies Allergies Coded Allergies Type Severity Reaction Last Updated Verified Sulfa (Sulfonamide Antibiotics) Allergy Intermediate 04/04/18 No niacin Allergy Unknown 05/25/18 Yes Physical Exam Physical Exam Constitutional: Well developed, well nourished, no acute distress, non-toxic appearance. [] HENT: Normocephalic, atraumatic, bilateral external ears normal, oropharynx moist, no oral exudates, nose normal. [] Eyes: PERRLA, EOMI, conjunctiva normal, no discharge. [] Neck: Normal range of motion, no tenderness, supple, no stridor. [] Cardiovascular:Heart rate regular rhythm, no murmur [] Lungs & Thorax: Bilateral breath sounds clear to auscultation [] Abdomen: Bowel sounds normal, soft, no tenderness, no masses, no pulsatile masses. [] Skin: Warm, dry, no erythema, no rash. [] Back: No tenderness, no CVA tenderness. [] Extremities: No tenderness, no cyanosis, no clubbing, ROM intact, no edema. [] Neurologic: Alert and oriented X 3, normal motor function, normal sensory function, no focal deficits noted. [] Psychologic: Affect normal, judgement normal, mood normal. [] Current Patient Data Vital Signs Vital Signs Date Time Temp Pulse Resp B/P (MAP) Pulse Ox O2 Delivery O2 Flow Rate FiO2 04/15/19 15:31 67 14 129/61 (83) 94 Room Air Lab Results Laboratory Tests Test 04/15/19 15:12 White Blood Count 2.3 x10^3/uL (4.0-11.0) L Red Blood Count 3.15 x10^6/uL (3.50-5.40) L Hemoglobin 8.8 g/dL (12.0-15.5) L Hematocrit 28.3 % (36.0-47.0) L Mean Corpuscular Volume 90 fL (79-100) Mean Corpuscular Hemoglobin 28 pg (25-35) Mean Corpuscular Hemoglobin Concent 31 g/dL (31-37) Red Cell Distribution Width 16.9 % (11.5-14.5) H Platelet Count 92 x10^3/uL (140-400) L Neutrophils (%) (Auto) 52 % (31-73) Lymphocytes (%) (Auto) 30 % (24-48) Monocytes (%) (Auto) 10 % (0-9) H Eosinophils (%) (Auto) 6 % (0-3) H Basophils (%) (Auto) 2 % (0-3) Neutrophils # (Auto) 1.2 x10^3uL (1.8-7.7) L Lymphocytes # (Auto) 0.7 x10^3/uL (1.0-4.8) L Monocytes # (Auto) 0.2 x10^3/uL (0.0-1.1) Eosinophils # (Auto) 0.1 x10^3/uL (0.0-0.7) Basophils # (Auto) 0.0 x10^3/uL (0.0-0.2) Platelet Estimate Pending Sodium Level 143 mmol/L (136-145) Potassium Level 4.3 mmol/L (3.5-5.1) Chloride Level 111 mmol/L (98-107) H Carbon Dioxide Level 23 mmol/L (21-32) Anion Gap 9 (6-14) Blood Urea Nitrogen 21 mg/dL (7-20) H Creatinine 1.3 mg/dL (0.6-1.0) H Estimated GFR (Cockcroft-Gault) 40.2 BUN/Creatinine Ratio 16 (6-20) Glucose Level 116 mg/dL (70-99) H Calcium Level 8.2 mg/dL (8.5-10.1) L Magnesium Level Pending Total Bilirubin Pending Aspartate Amino Transferase (AST) Pending Alanine Aminotransferase (ALT) Pending Alkaline Phosphatase Pending Creatine Kinase Pending Creatine Kinase MB (Mass) Pending Creatine Kinase MB Relative Index Pending Total Protein Pending Albumin Pending Albumin/Globulin Ratio Pending EKG EKG Interpreted by me: Heart rate 69, sinus rhythm, normal intervals, normal axis, no acute ST/T-wave abnormalities present[] Radiology/Procedures Radiology/Procedures [address] [address] IMAGING REPORT Signed PATIENT: MAIKEL PINEDO ACCOUNT: [id number] : 1945 LOCATION: ER AGE: 73 SEX: F EXAM STATUS: REG ER ORD. PHYSICIAN: WILDER RHODES MD REASON: shortness of breath PROCEDURE: PORTABLE CHEST 1V PORTABLE CHEST 1V Clinical indications: Shortness of breath. COMPARISON: November 14, 2018. Findings: There is an increase in the interstitium bilaterally consistent with mild interstitial pulmonary edema. Small bilateral pleural effusions are seen. Heart size is mildly prominent. Mediastinum is unremarkable. Mild vascular congestion is seen. IMPRESSION: Mild CHF. Electronically signed by: Luda Damian MD (04/15/2019 3:42 PM) [facility] [place] DICTATED AND SIGNED BY: LUDA DAMIAN MD DATE: 04/15/19 1542 CC: JAMES POLO MD; WILDER RHODES MD ~ [] Course & Med Decision Making Course & Med Decision Making Pertinent Labs and Imaging studies reviewed. (See chart for details) Urinalysis shows evidence of infection. Chest x-ray and blood work also show evidence of acute congestive heart failure. Patient started on Rocephin for treatment of acute urinary tract infection. The patient will need admission to the hospital for further treatment as she is having severe shortness of breath with walking likely due to acute on chronic congestive heart failure. I spoke with the patient's primary care provider, Dr. Polo, who agreed to accept patient in hospital for further care.[] Dragon Disclaimer Dragon Disclaimer This electronic medical record was generated, in whole or in part, using a voice recognition dictation system. Departure Departure: Impression: Primary Impression: Urinary tract infection Additional Impressions: Acute on chronic congestive heart failure Dyspnea on exertion Microcytic anemia Disposition: ADMITTED INPATIENT Admitting Physician: James Polo Condition: GUARDED Referrals: JAMES POLO MD (PCP) Problem Qualifiers Primary Impression: Urinary tract infection Urinary tract infection type: site unspecified Hematuria presence: without hematuria Qualified Codes: N39.0 - Urinary tract infection, site not specified Additional Impressions: Acute on chronic congestive heart failure Heart failure type: unspecified Qualified Codes: I50.9 - Heart failure, unspecified WILDER RHODES MD Apr 15, 2019 15:47
[2019-04-15 16:08] LABS: ALBUMIN 2.9 g/dL (3.4-5.0); ALBUMIN/GLOBULIN RATIO 0.8 (1.0-1.7); MAGNESIUM 2.1 mg/dL (1.8-2.4); TOTAL BILIRUBIN 0.6 mg/dL (0.2-1.0); TOTAL PROTEIN 6.6 g/dL (6.4-8.2)
--- NOTE | 2019-04-15 17:02 | EKG ---
[address] [address] Test Date: 2019-04-15 Test Time: 15:19:01 Pat Name: MAIKEL PINEDO Department: Room: Gender: F Regulatory Affairs Manager: : 1945 Requested By: WILDER RHODES Order Number: [id number] Reading MD: Measurements Intervals [place] Rate: 69 P: 41 AL: 198 QRS: 9 QRSD: 74 T: 28 QT: 428 QTc: 460 Interpretive Statements SINUS RHYTHM NO SPECIFIC ECG ABNORMALITIES RI6.01 No previous ECG available for comparison
[2019-04-15 17:16] LABS: BILIRUBIN,URINE NEG (NEG); CLARITY,URINE CLOUDY; COLOR,URINE YELLOW; GLUCOSE,URINE NEG (NEG); NITRITE,URINE POS (NEG); RBC,URINE 0 /HPF (0-2); UROBILINOGEN,URINE 0.2 mg/dL (0.2 mg/dL); WBC,URINE 20-40 /HPF (0-4)
[2019-04-15 17:17] LABS: BACTERIA,URINE MANY /HPF (0-FEW); SQUAMOUS EPITHELIAL CELL,UR FEW /LPF
[2019-04-15] MEDS ORDERED: ACETAMINOPHEN 325 MG TABLET PO PRN (18:00)
[2019-04-15] MEDS ORDERED: FUROSEMIDE 40 MG/4 ML VIAL IVP ONE (18:00)
[2019-04-15] MEDS ORDERED: ONDANSETRON PF 4 MG/2 ML VIAL. IV PRN (18:00)
[2019-04-15] MEDS ORDERED: IV NORMAL SALINE 50ML 50 ML ONE (18:19)
[2019-04-15] MEDS ORDERED: cefTRIAXone SODIUM 1 GM VIAL ONE (18:19)
[2019-04-15 18:35] VITALS: BP 144/81
[2019-04-15 20:16] LABS: % BASOS 1 % (0-3); % EOS 6 % (0-5); % LYMPHS 31 % (24-48); % MONOS 7 % (0-10); % SEGS 55 % (35-66); ANISOCYTOSIS SLIGHT; PLT ESTIMATE DECREASED (ADEQUATE); TEAR DROP CELLS OCC
[2019-04-15 22:35] VITALS: BP 145/71
[2019-04-15] MEDS ORDERED: ZOLPIDEM 5 MG TABLET. PO PRN (23:00)
[2019-04-16] MEDS: LEVOTHYROXINE 150 MCG TABLET PO SCH (05:46)
[2019-04-16 06:26] LABS: BASO # 0.1 x10^3/uL (0.0-0.2); BASO % 2 % (0-3); EOS # 0.2 x10^3/uL (0.0-0.7); EOS % 7 % (0-3); HEMATOCRIT 29.2 % (36.0-47.0); HEMOGLOBIN 9.1 g/dL (12.0-15.5); LYMPH # 0.9 x10^3/uL (1.0-4.8); LYMPH % 35 % (24-48); MEAN CORPUSCULAR HEMOGLOBIN 28 pg (25-35); MEAN CORPUSCULAR HGB CONC 31 g/dL (31-37); MEAN CORPUSCULAR VOLUME 90 fL (79-100); MONO # 0.3 x10^3/uL (0.0-1.1); MONO % 11 % (0-9); NEUT # 1.2 x10^3uL (1.8-7.7); NEUT % 46 % (31-73); PLATELET COUNT 97 x10^3/uL (140-400); RED BLOOD COUNT 3.26 x10^6/uL (3.50-5.40); WHITE BLOOD COUNT 2.6 x10^3/uL (4.0-11.0)
[2019-04-16 06:30] LABS: CALCIUM 8.3 mg/dL (8.5-10.1); CREATININE 1.2 mg/dL (0.6-1.0); POTASSIUM 3.9 mmol/L (3.5-5.1)
--- NOTE | 2019-04-16 07:44 | PDOC2 ---
CARDIAC CONSULT DATE OF CONSULT Date Of Consult DATE: 04/16/19 TIME: 07:40 REASON FOR CONSULT Reason for Consult CHF REFERRING PHYSICIAN Referring Physician Dr. Bui SOURCE Source: Chart review, Patient HPI History of Present Illness This is a 73 yo female who presented secondary to right-sided flank pain and shortness of breath. Right flank pain began yesterday. Has been urinating frequently and has been incontinent more here recently, but not dysuria. Stopped taking her lasix here recently due to frequency and incontinence. Has chronic dyspnea. Mild worse in the last couple of days. No LE edema. Breathing improved following IV Lasix in ED. Jay any chest pain, palpitations, dizziness, diaphoresis, or nausea/vomiting. PAST MEDICAL HISTORY Past Medical History Cardiovascular: CAD s/p PCI/stent, CHF, HTN, hyperipidemia Pulmonary: Asthma, COPD GI: Other (esophageal varices ) Heme/Onc: Anemia NOS Hepatobiliary: Cirrhosis Musculoskeletal: Osteoarthritis Renal/: Chronic renal insuff Endocrine: Diabetes, Hypothyroidism PAST SURGICAL HISTORY Past Surgical History Appendectomy, Cholecystectomy, Hysterectomy FAMILY HISTORY Family History: Heart Disease SOCIAL HISTORY Social History Smoke: No ALCOHOL: none Drugs: None Lives: with Family CURRENT MEDICATIONS Current Medications Current Medications Sodium Chloride 1,000 ml @ 125 mls/hr Q8H IV Last administered on 04/15/19at 15:31; Start 04/15/19 at 15:04; Stop 04/15/19 at 18:33; Status DC Ceftriaxone Sodium 1 gm/ Sodium Chloride 50 ml @ 100 mls/hr 1X ONCE IV Last administered on 04/15/19at 18:21; Start 04/15/19 at 18:00; Stop 04/15/19 at 18:29; Status DC Ondansetron HCl (Zofran) 4 mg PRN Q4HRS PRN IV NAUSEA/VOMITING; Start 04/15/19 at 18:00; Stop 04/16/19 at 17:59 Fentanyl Citrate (Fentanyl 2ml Vial) 50 mcg PRN Q2HR PRN IV PAIN Last administered on 04/15/19at 20:06; Start 04/15/19 at 18:00; Stop 04/16/19 at 17:59 Acetaminophen (Tylenol) 650 mg PRN Q4HRS PRN PO FEVER; Start 04/15/19 at 18:00; Stop 04/16/19 at 17:59 Furosemide (Lasix) 40 mg 1X ONCE IVP Last administered on 04/15/19at 20:05; Start 04/15/19 at 18:00; Stop 04/15/19 at 18:07; Status DC Ceftriaxone Sodium 1 gm/ Sodium Chloride 50 ml @ 100 mls/hr Q24H IV ; Start 04/16/19 at 18:00 Sodium Chloride 50 ml @ As Directed STK-MED ONCE .ROUTE ; Start 04/15/19 at 18:19; Stop 04/15/19 at 18:19; Status DC Ceftriaxone Sodium (Rocephin) 1 gm STK-MED ONCE .ROUTE ; Start 04/15/19 at 18:19; Stop 04/15/19 at 18:19; Status DC Aspirin (Children'S Aspirin) 81 mg DAILY PO ; Start 04/16/19 at 09:00 Vitamin D (Vitamin D3) 3,000 unit DAILY PO ; Start 04/16/19 at 09:00 Levothyroxine Sodium (Synthroid) 150 mcg DAILY06 PO Last administered on 04/16/19at 05:46; Start 04/16/19 at 06:00 Linagliptin (Tradjenta) 5 mg DAILY PO ; Start 04/16/19 at 09:00 Non-Formulary Medication (Insulin Degludec (Tresiba Flextouch U-200)) 20 unit DAILY SQ ; Start 04/16/19 at 09:00; Stop 04/15/19 at 22:13; Status DC Losartan Potassium (Cozaar) 100 mg DAILY PO ; Start 04/16/19 at 09:00 Non-Formulary Medication (Oxybutynin Chloride (Oxybutynin Chloride Er)) 10 mg DAILY PO ; Start 04/16/19 at 09:00; Stop 04/15/19 at 22:13; Status DC Pantoprazole Sodium (Protonix) 40 mg DAILYAC PO ; Start 04/16/19 at 07:30 Atorvastatin Calcium (Lipitor) 10 mg QHS PO ; Start 04/16/19 at 21:00 Citalopram Hydrobromide (CeleXA) 20 mg DAILY PO ; Start 04/16/19 at 09:00 Zolpidem Tartrate (Ambien) 5 mg PRN QHS PRN PO INSOMNIA, MAY REPEAT IN 1HR; Start 04/15/19 at 23:00 Insulin Glargine (Lantus Syringe) 30 unit DAILY SQ ; Start 04/16/19 at 09:00 Lactobacillus Rhamnosus (Culturelle) 1 cap BID PO ; Start 04/16/19 at 09:00 Active Scripts Active Aspirin 81 Mg Tab.chew 81 Mg PO DAILY Lasix (Furosemide) 20 Mg Tablet 1 Tab PO DAILY Reported Pantoprazole Sodium 20 Mg Tablet.dr 20 Mg PO DAILY Levothyroxine Sodium 150 Mcg Tablet 150 Mcg PO DAILYAC Vitamin D3 (Cholecalciferol (Vitamin D3)) 1,000 Unit Tablet 3,000 Unit PO DAILY Pravastatin Sodium 40 Mg Tablet 1 Tab PO DAILY Tresiba Flextouch U-200 (Insulin Degludec) 200 Unit/1 Ml Insuln.pen 30 Unit SQ DAILY Tradjenta (Linagliptin) 5 Mg Tablet 1 Tab PO DAILY Alendronate Sodium 70 Mg Tablet 1 Tab PO WEEKLY Losartan Potassium 100 Mg Tablet 100 Mg PO DAILY ALLERGIES Allergies: Coded Allergies: Sulfa (Sulfonamide Antibiotics) (Unverified Allergy, Intermediate, 04/15/19) liraglutide (Verified Allergy, Unknown, 04/15/19) niacin (Verified Allergy, Unknown, 04/15/19) ROS Review of Systems 14 point ROS conducted with pertinent positives noted above in HPI. PHYSICAL EXAM Physical Exam General: Alert, Oriented X3, Cooperative, No acute distress HEENT: Atraumatic, Mucous membr. moist/pink Lungs: Clear to auscultation, diminished Heart: Regular rate (SR), Normal S1, Normal S2, Other (S4; 3/6 diastolic murmur to OTIS border) Abdomen: Soft, No tenderness Extremities: No cyanosis, No edema Skin: No breakdown, No significant lesion Neuro: Normal speech, Sensation intact Psych/Mental Status: Mental status NL, Mood NL MUSCULOSKELETAL: Osteoarthritic changes both hands VITALS Vital Signs Vital Signs Date Time Temp Pulse Resp B/P (MAP) Pulse Ox O2 Delivery O2 Flow Rate FiO2 04/15/19 22:35 98.3 67 20 145/71 (95) 94 Room Air LABS LABS Laboratory Tests Test 04/15/19 15:12 04/15/19 16:35 04/15/19 19:15 04/16/19 06:08 White Blood Count 2.3 x10^3/uL (4.0-11.0) 2.6 x10^3/uL (4.0-11.0) Red Blood Count 3.15 x10^6/uL (3.50-5.40) 3.26 x10^6/uL (3.50-5.40) Hemoglobin 8.8 g/dL (12.0-15.5) 8.9 g/dL (12.0-15.5) 9.1 g/dL (12.0-15.5) Hematocrit 28.3 % (36.0-47.0) 29.2 % (36.0-47.0) Mean Corpuscular Volume 90 fL (79-100) 90 fL (79-100) Mean Corpuscular Hemoglobin 28 pg (25-35) 28 pg (25-35) Mean Corpuscular Hemoglobin Concent 31 g/dL (31-37) 31 g/dL (31-37) Red Cell Distribution Width 16.9 % (11.5-14.5) 17.0 % (11.5-14.5) Platelet Count 92 x10^3/uL (140-400) 97 x10^3/uL (140-400) Neutrophils (%) (Auto) 52 % (31-73) 46 % (31-73) Lymphocytes (%) (Auto) 30 % (24-48) 35 % (24-48) Monocytes (%) (Auto) 10 % (0-9) 11 % (0-9) Eosinophils (%) (Auto) 6 % (0-3) 7 % (0-3) Basophils (%) (Auto) 2 % (0-3) 2 % (0-3) Neutrophils # (Auto) 1.2 x10^3uL (1.8-7.7) 1.2 x10^3uL (1.8-7.7) Lymphocytes # (Auto) 0.7 x10^3/uL (1.0-4.8) 0.9 x10^3/uL (1.0-4.8) Monocytes # (Auto) 0.2 x10^3/uL (0.0-1.1) 0.3 x10^3/uL (0.0-1.1) Eosinophils # (Auto) 0.1 x10^3/uL (0.0-0.7) 0.2 x10^3/uL (0.0-0.7) Basophils # (Auto) 0.0 x10^3/uL (0.0-0.2) 0.1 x10^3/uL (0.0-0.2) Segmented Neutrophils % 55 % (35-66) Lymphocytes % 31 % (24-48) Monocytes % 7 % (0-10) Eosinophils % 6 % (0-5) Basophils % 1 % (0-3) Platelet Estimate Decreased (ADEQUATE) Anisocytosis Slight Tear Drop Cells Occ Sodium Level 143 mmol/L (136-145) 142 mmol/L (136-145) Potassium Level 4.3 mmol/L (3.5-5.1) 3.9 mmol/L (3.5-5.1) Chloride Level 111 mmol/L (98-107) 109 mmol/L (98-107) Carbon Dioxide Level 23 mmol/L (21-32) 23 mmol/L (21-32) Anion Gap 9 (6-14) 10 (6-14) Blood Urea Nitrogen 21 mg/dL (7-20) 20 mg/dL (7-20) Creatinine 1.3 mg/dL (0.6-1.0) 1.2 mg/dL (0.6-1.0) Estimated GFR (Cockcroft-Gault) 40.2 44.0 BUN/Creatinine Ratio 16 (6-20) Glucose Level 116 mg/dL (70-99) 92 mg/dL (70-99) Calcium Level 8.2 mg/dL (8.5-10.1) 8.3 mg/dL (8.5-10.1) Magnesium Level 2.1 mg/dL (1.8-2.4) Total Bilirubin 0.6 mg/dL (0.2-1.0) Aspartate Amino Transf (AST/SGOT) 28 U/L (15-37) Alanine Aminotransferase (ALT/SGPT) 17 U/L (14-59) Alkaline Phosphatase 103 U/L (46-116) Creatine Kinase 83 U/L (26-192) 69 U/L (26-192) Creatine Kinase MB (Mass) 1.2 ng/mL (0.0-3.6) Creatine Kinase MB Relative Index 1.4 % (0-4) Troponin I Quantitative 0.027 ng/mL (0-0.055) 0.030 ng/mL (0-0.055) HN-Krs-D-Type Natriuretic Peptide 671 pg/mL (0-124) Total Protein 6.6 g/dL (6.4-8.2) Albumin 2.9 g/dL (3.4-5.0) Albumin/Globulin Ratio 0.8 (1.0-1.7) Urine Collection Type Void Urine Color Yellow Urine Clarity Cloudy Urine pH 5.5 Urine Specific [place] 1.025 Urine Protein Neg (NEG-TRACE) Urine Glucose (UA) Neg mg/dL (NEG) Urine Ketones (Stick) Neg mg/dL (NEG) Urine Blood Neg (NEG) Urine Nitrite Pos (NEG) Urine Bilirubin Neg (NEG) Urine Urobilinogen Dipstick 0.2 mg/dL (0.2 mg/dL) Urine Leukocyte Esterase Small (NEG) Urine RBC 0 /HPF (0-2) Urine WBC 20-40 /HPF (0-4) Urine Squamous Epithelial Cells Few /LPF Urine Bacteria Many /HPF (0-FEW) Urine Mucus Slight /LPF D-Dimer (Sweetie) 1.58 mg/L (0.00-0.50) ECHOCARDIOGRAM Echocardiogram <Conclusion> The left ventricular systolic function is normal. The ejection fraction is estimated at 60%. There is normal LV segmental wall motion. Moderate aortic regurgitation. Mild mitral regurgitation. Mild to moderate tricuspid regurgitation. The PA pressure was estimated at 48 mmHg. There is no evidence of significant pericardial effusion. DATE: 06/06/17 1554 <Conclusion> The left ventricular systolic function is normal. The Ejection Fraction is 55-60%. There is normal LV segmental wall motion. Mild aortic regurgitation. Trace to mild mitral regurgitation. Trace tricuspid regurgitation with an estimated PAP of 46 mmHg. There is mild-moderate pulmonary hypertension. There is no evidence of significant pericardial effusion. DATE: 09/25/18 1459 STRESS TEST Stress Test 06/19/17 - Procedure: D-SPECT MULTI GATED THALLIUM REGADENOSON MPI STRESS TEST SUMMARY/OPINION: Myocardial perfusion imaging study is abnormal but probably not high risk. There is an inferior wall perfusion abnormality mainly seen at the base of the heart that is compatible with scar and ischemia, ischemia does appear to be the predominant component. This perfusion abnormality is not seen in mid ventricular cavity and left ventricular apex, and this could be due to collateral circulation. There are no other perfusion abnormalities. Normal left ventricular systolic function, ejection fraction of 68%, there are no wall motion abnormalities. Normal pulmonary to myocardial count ratio and normal left ventricular end-diastolic volume. No previous study available for comparison. HEART CATH Heart Cath 03/31/14-Cath ([facility] EF 60%. Normal Left main coronary artery. 90% stenosis in the distal LAD. First obtuse marginal branch with a 80-90% stenosis in the proximal segment. 70-80% stenosis in the mid RCA. 04/27/14: Drug-eluting stent PCI of LAD, CFX and RCA by Dr. Ferrell CORONARY ANGIOGRAPHY: LM is a large caliber vessel with normal angiographic appearance. LAD is a moderate caliber vessel with a patent mid stent and mild diffuse luminal irregularities of up to 30-40%. D1 is a small caliber vessel with proximal to mid 50% stenosis. LCx is a moderate caliber non-dominant vessel with a mid subtotal occlusion. The distal vessel is small in caliber and seen to fill via faint left to left collaterals. OM1 is a moderate caliber vessel with a patent previously placed stent. RCA is a large caliber dominant vessel with patent previously placed proximal and mid stents. RPDA is a moderate caliber vessels with normal angiographic appearance. RPL is a small caliber vessel with an ostial occlusion, likely from previously placed stents and is seen to fill via faint right to right collaterals. Given lack of any EKG changes and troponin elevation, further intervention on the chronic total occlusions was deferred. Conclusion 1. Acute on chronic diastolic HF. LVEDP 20 mm Hg 2. Three vessel coronary disease. 3. Patent stents in the LAD/RCA and LCx. 4. Chronic total occlusions of small caliber branches in the Lcx and RCA Recommendations Aggressive Medical Therapy DATE: 12/16/18 0844 ASSESSMENT/PLAN Assessment/Plan 1. Flank pain, UTI 2. Mild acute on chronic diastolic CHF; secondary to missed Lasix. Had stopped taking recently due to frequency and incontinence. CXR with mild congestion. Improved following IV Lasix. Recent echo with preserved LV systolic function 3. Exertional dyspnea, multifactorial with CHF, pulm HTN, and possible adult onset asthma 4. CAD s/p PCI/GERALD to the LAD, LCx, and RCA 04/2014. Recent cath revealed 3VD with patent stents in the LAD/RCA and LCx. 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 CKD; Cr stable. 6. Pancytopenia 7. Hypertension; controlled 8. Hyperlipidemia; statin therapy 9. Diabetes, II Recommendations Resume oral Lasix 2Gm Na diet Continue secondary prevention measures Antibiotic therapy for UTI Follow up with Dr. Clark as previously scheduled. GIGI MAN APRN Apr 16, 2019 07:44
[2019-04-16] MEDS ORDERED: NON FORMULARY ITEM (Insulin Degludec (Tresiba Flextouch U-200) 20 UNIT) SQ SCH (09:00)
[2019-04-16] MEDS ORDERED: OXYBUTYNIN CHLORIDE 10 MG PO SCH (09:00)
[2019-04-16] MEDS: PANTOPRAZOLE 40 MG TABLET. PO SCH (09:03)
[2019-04-16] MEDS: LINAGLIPTIN 5 MG TABLET PO SCH (09:03)
[2019-04-16] MEDS: LACTOBACILLUS RHAMNOSUS GG 1 CAPSULE. PO SCH ×2 (09:03→21:10)
[2019-04-16] MEDS: ASPIRIN 81 MG TAB.CHEW PO SCH (09:03)
[2019-04-16] MEDS: LOSARTAN 50 MG TABLET. PO SCH (09:04)
[2019-04-16] MEDS: CHOLECALCIFEROL (VITAMIN D3) 1,000 UNIT TABLET PO SCH (09:04)
[2019-04-16] MEDS: CITALOPRAM 20 MG TABLET. PO SCH (09:04)
[2019-04-16] MEDS: FUROSEMIDE 20 MG TABLET PO SCH (09:09)
[2019-04-16] MEDS: INSULIN GLARGINE SYRINGE. SQ SCH (09:16)
[2019-04-16 13:19] VITALS: BP 102/61
--- NOTE | 2019-04-16 13:32 | RAD ---
NUCLEAR MEDICINE VENTILATION PERFUSION SCAN History: Chronic dyspnea, elevated d-dimer. Comparison: AP chest, prior day. CT scan December 12, 2018. Technique: Patient initially ventilated with 19 mCi of xenon-133 gas. Anterior and posterior imaging of the lungs during initial breath-hold, equilibrium and, washout phase images is performed. Perfusion portion performed after intravenous administration of 4.7 mCi Technetium 99m MAA. Multiple projection planar images of the lungs were obtained. Findings: The initial breath-hold ventilation images are homogeneous. There is no retention of tracer on the washout phase images. Perfusion images demonstrate no perfusion defects. IMPRESSION: Normal VQ scan. Negative for pulmonary embolism. Electronically signed by: Roque Velazquez MD (04/16/2019 1:29 PM) [id number]
[2019-04-16 14:55] LABS: THYROID STIM HORMONE (TSH) 1.356 uIU/mL (0.358-3.740)
[2019-04-16 16:14] VITALS: BP 101/54
[2019-04-16 19:20] VITALS: BP 96/60
[2019-04-16] MEDS ORDERED: ATORVASTATIN CALCIUM 10 MG TABLET. PO SCH (21:00)
[2019-04-16 22:26] VITALS: BP 107/65
[2019-04-16] MEDS ORDERED: ACETAMINOPHEN 325 MG TABLET PO PRN (23:15)
[2019-04-17 01:07] LABS: HEMOGLOBIN A1C 5.7 % (4.8-5.6)
--- NOTE | 2019-04-17 01:36 | PN ---
DATE: SUBJECTIVE: Patient is a 73-year-old female with congestive heart failure. She is resting fairly comfortably, good diuresis, feeling somewhat better, breathing a little bit easier, started on antidepressant therapy. OBJECTIVE: VITAL SIGNS: Blood pressure down to 107/60, respiratory rate 20, pulse 70, afebrile, oxygen saturation 93 just on room air. GENERAL: The patient is alert and oriented. LUNGS: Show some decreased breath sounds, some rales in the bases, but otherwise improving. CARDIOVASCULAR: Regular sinus rhythm. ABDOMEN: Soft, nontender. EXTREMITIES: No clubbing, cyanosis, nor edema. LABORATORY DATA: The patient's white count still low at 2.6 and 9.1. We will continue to monitor that. Hemoglobin has come up to 9.1. However, her chemistries, blood sugars are being monitored, and otherwise, she is making good progress there. Positive D-dimer. V/Q scan showed no evidence of a PE. PLAN: We will continue to monitor accordingly and make further evaluation on her as indicated. GABBY POLO MD DR: CHEMA/bri JOB#: [id number] / [id number]
[2019-04-17 05:33] VITALS: BP 101/65
[2019-04-17 06:02] LABS: BASO % 2 % (0-3); EOS # 0.2 x10^3/uL (0.0-0.7); EOS % 7 % (0-3); HEMATOCRIT 27.2 % (36.0-47.0); HEMOGLOBIN 8.4 g/dL (12.0-15.5); LYMPH # 1.2 x10^3/uL (1.0-4.8); LYMPH % 46 % (24-48); MEAN CORPUSCULAR HEMOGLOBIN 28 pg (25-35); MEAN CORPUSCULAR HGB CONC 31 g/dL (31-37); MEAN CORPUSCULAR VOLUME 89 fL (79-100); MONO # 0.3 x10^3/uL (0.0-1.1); MONO % 12 % (0-9); NEUT # 0.9 x10^3uL (1.8-7.7); NEUT % 34 % (31-73); PLATELET COUNT 92 x10^3/uL (140-400); RED BLOOD COUNT 3.05 x10^6/uL (3.50-5.40); RED CELL DISTRIBUTION WIDTH 17.4 % (11.5-14.5); WHITE BLOOD COUNT 2.7 x10^3/uL (4.0-11.0)
[2019-04-17 06:09] LABS: CALCIUM 7.9 mg/dL (8.5-10.1); CREATININE 1.3 mg/dL (0.6-1.0); GFR 40.2; POTASSIUM 4.5 mmol/L (3.5-5.1)
[2019-04-17] MEDS: LEVOTHYROXINE 150 MCG TABLET PO SCH (06:14)
[2019-04-17] MEDS: PANTOPRAZOLE 40 MG TABLET. PO SCH (07:39)
[2019-04-17] MEDS: INSULIN GLARGINE SYRINGE. SQ SCH (08:44)
[2019-04-17] MEDS: CHOLECALCIFEROL (VITAMIN D3) 1,000 UNIT TABLET PO SCH (08:45)
[2019-04-17] MEDS: CITALOPRAM 20 MG TABLET. PO SCH (08:45)
[2019-04-17] MEDS: FUROSEMIDE 20 MG TABLET PO SCH (08:45)
[2019-04-17] MEDS: LACTOBACILLUS RHAMNOSUS GG 1 CAPSULE. PO SCH (08:45)
[2019-04-17] MEDS: LINAGLIPTIN 5 MG TABLET PO SCH (08:45)
[2019-04-17] MEDS: ASPIRIN 81 MG TAB.CHEW PO SCH (08:45)
--- NOTE | 2019-04-17 09:18 | CARD ---
MR#: [id number] Date of Study: 04/17/2019 Ordering Physician: GABBY POLO, Referring Physician: GABBY POLO, Tech: Anai Judd VICTORIA APPROVED REPORT EXAM: Two-dimensional and M-mode echocardiogram with Doppler and color Doppler. Other Information Quality : Good INDICATION Congestive Heart Failure 2D DIMENSIONS RVDd2.4 (2.9-3.5cm)Left Atrium(2D)4.4 (1.6-4.0cm) IVSd0.7 (0.7-1.1cm)Aortic Root(2D)2.5 (2.0-3.7cm) LVDd5.3 (3.9-5.9cm)PWd0.7 (0.7-1.1cm) LVDs2.8 (2.5-4.0cm)FS (%) 30.0 % SV103.7 mlLVEF(%)55.0 (>50%) Aortic Valve AoV Peak Vasquez.190.5cm/sAoV VTI42.9cm AO Peak GR.14.5mmHgAO Mean GR.8mmHg CHRISTINA (VTI)1.09ev5AW P 1/2 Uhqm634wk Mitral Valve MV E Sxhwsxvm757.5cm/sMV DECEL [id number] MV A Hszsluzs915.3cm/sE/A Ratio1.2 Tricuspid Valve TR P. Cwgapndz569ij/sRAP [id number] TR Peak Gr.44xdXxKJTE66onDp LEFT VENTRICLE The left ventricle is normal size. There is normal left ventricular wall thickness. Left ventricle sy stolic function is low normal. The Ejection Fraction is 50-55%. There is grossly normal LV segmental wall motion. Transmitral Doppler flow pattern is Grade I-abnormal relaxation pattern. RIGHT VENTRICLE The right ventricle is normal size. The right ventricular systolic function is normal. ATRIA The left atrium is mildly dilated. The right atrium size is normal. The interatrial septum is intact with no evidence for an atrial septal defect or patent foramen ovale as noted on 2-D or Doppler imagi ng. AORTIC VALVE The aortic valve is calcified and displays decreased opening. Doppler and Color Flow revealed mild ao rtic regurgitation. Calculated aortic valve area is 1.7 cm2 with maximum pressure gradient of 15 mmHg and mean pressure gradient of 8 mmHg. MITRAL VALVE The mitral valve is calcified but opens well. Mitral annular calcification is mild. There is no evide nce of mitral valve prolapse. There is no mitral valve stenosis. Doppler and Color-flow revealed mild mitral regurgitation. TRICUSPID VALVE The tricuspid valve is normal in structure and function. Doppler and Color Flow revealed mild tricusp id regurgitation. There is moderate pulmonary hypertension. The PA pressure was estimated at 55 mmHg. There is no tricuspid valve stenosis. PULMONIC VALVE The pulmonic valve is not well visualized. Doppler and Color Flow revealed no pulmonic valvular regur gitation. There is no pulmonic valvular stenosis. GREAT VESSELS The aortic root is normal in size. The ascending aorta is not well seen. The IVC is dilated. PERICARDIAL EFFUSION There is no evidence of significant pericardial effusion. Critical Notification Critical Value: No <Conclusion> Left ventricle systolic function is low normal. The Ejection Fraction is 50-55%. There is grossly normal LV segmental wall motion. Doppler and Color Flow revealed mild aortic regurgitation. Doppler and Color Flow revealed mild tricuspid regurgitation. There is moderate pulmonary hypertensio n. The PA pressure was estimated at 55 mmHg. Signed by : Simeon Clark, Electronically Approved : 04/17/2019 09:17:46
[2019-04-17] MEDS ORDERED: FERROUS SULFATE 325 MG TABLET. PO SCH (09:30)
--- NOTE | 2019-04-17 11:29 | RAD ---
CT Abdomen and Pelvis without contrast History: Right-sided pain, anemia Technique: Noncontrast CT imaging was performed of the abdomen and pelvis. Multiplanar images are reviewed. Exposure: One or more of the following individualized dose reduction techniques were utilized for this examination: 1. Automated exposure control 2. Adjustment of the mA and/or kV according to patient size 3. Use of iterative reconstruction technique. Comparison: February 19, 2018 Findings: There is now small left pleural effusion. There is coronary calcification. There is no hydronephrosis or renal or ureteral calculus, similar mild right pelviectasis/extrarenal pelvis. There is no adrenal nodularity. Accurate evaluation of the abdominal visceral organs is limited without intravenous contrast. There is again recanalized paraumbilical vein. There is nodular margin of the liver. There is again splenomegaly on the order of 15.7 x 7.3 x 12.7 cm. There is no free fluid. There is atherosclerotic calcification of abdominal aorta and branches, also prominent splenic arterial calcification as seen previously. Gallbladder is again not seen. Bowel is not significantly dilated. There is no free fluid or free air. Appendix is not confidently identified if still present. There is no significant inflammatory type change localized about the bowel. There is lumbar dextroscoliosis and multilevel lumbar facet degenerative change and degenerative disc disease. There is multilevel variable lumbar lateral recess stenosis, suspected moderate to severe spinal stenosis at L3-4. There is variable lumbar neural foramina compromise greatest on the left at L3-4 and L2-3. There is osteoarthritic change of the bilateral hips. There are again right and central pericardiophrenic nodes, largest 0.7 cm short axis dimension overall similar. Impression: 1. There is again evidence of cirrhosis, again recanalized paraumbilical vein and splenomegaly evidence of portal hypertension. There is no significant free fluid. 2. There is small left pleural effusion. 3. There is multilevel variable lumbar lateral recess stenosis, suspected moderate to severe spinal stenosis at L3-4. There is lumbar dextroscoliosis. 4. Appendix is not confidently identified if still present, no significant inflammatory type change localized about the bowel. Electronically signed by: Nabeel Hendrix MD (04/17/2019 11:26 AM) [id number]
[2019-04-17 11:39] VITALS: BP 114/60
[2019-04-17 11:40] VITALS: BP 155/85
[2019-04-17 12:16] VITALS: BP 155/85
[2019-04-17] MEDS: LOSARTAN 50 MG TABLET. PO SCH (12:16)
[2019-04-17] MEDS ORDERED: CITA20TA9 PO (14:18)
[2019-04-17] MEDS ORDERED: FERR325T72 PO (14:18)
[2019-04-17] MEDS ORDERED: SULF1TAB24 PO (14:21)
--- NOTE | 2019-04-17 14:23 | DISCH ---
HOME HEALTH DISCHARGE/MEDS DISCHARGE INFORMATION: Discharge Date: Apr 17, 2019 Final Diagnosis: Problems Medical Problems: (1) Acute on chronic congestive heart failure Status: Acute (2) Dyspnea on exertion Status: Acute (3) Microcytic anemia Status: Acute (4) Urinary tract infection Status: Acute Condition on Discharge: Stable CODE STATUS: Code Status: Full HOME HEALTH: Face to Face: I certify this patient is under my care and that I, or a nurse practitioner or physician's events and promotions assistant working with me, had a face to face encounter that meets the physician face to face encounter requirements with this patient on [Date]. Medical Condition(s): CHF, COPD, HTN Jail For: Assess Cardiopulm Status, Assess & Educate Safety, Assess/Skilled Observatio, Diabetic Care, Medication Management Physical Therapy For: Evalulation/Treatment Occupational Therapy For: Evaluation/Treatment Homebound Status Met By: Unsteady balance w/ amb,, Fatigue w/ amb., Limited distance walking POST DISCHARGE ORDERS: Activity Instructions for Disc: Activity as tolerated Weight Bearing Status after Di: No restrictions DIET AFTER DISCHARGE: ADA CHECKS AFTER DISCHARGE: Checks after discharge: Check blood press - daily, Check blood sugar, ac/hs, Weigh Yourself Daily TREATMENT/EQUIPMENT ORDERS: Discharge Respiratory Equipmen: Oxygen CERTIFICATION STATEMENT: Certification Statement: Based on the above finding, I certify that this patient is confined to the home and needs intermittent long term care, physical therapy and/or speech therapy, or continues to need occupational therapy.~ This patient is under my care, and I have initiated the establishment of the plan of care.~ This patient will be followed by myself or a community physician who will periodically review the plan of care. DISCHARGE MEDICATIONS: Home Meds Active Scripts Aspirin (ASPIRIN) 81 Mg Tab.chew, 81 MG PO DAILY, #90 TAB Prov:GABBY POLO MD 06/07/17 Furosemide (LASIX) 20 Mg Tablet, 1 TAB PO DAILY, #90 TAB 1 Refill Prov:GABBY POLO MD 06/07/17 Reported Medications Pantoprazole Sodium (PANTOPRAZOLE SODIUM) 20 Mg Tablet.dr, 20 MG PO DAILY for GERD 12/12/18 Levothyroxine Sodium (LEVOTHYROXINE SODIUM) 150 Mcg Tablet, 150 MCG PO DAILYAC for THYROID SUPPLEMENT, #30 TAB 0 Refills 02/19/18 Cholecalciferol (Vitamin D3) (VITAMIN D3) 1,000 Unit Tablet, 3000 UNIT PO DAILY for supplement, #30 TAB 5 Refills 02/19/18 Pravastatin Sodium (PRAVASTATIN SODIUM) 40 Mg Tablet, 1 TAB PO DAILY, #90 TAB 1 Refill 06/05/17 Insulin Degludec (Tresiba Flextouch U-200) 200 Unit/1 Ml Insuln.pen, 30 UNIT SQ DAILY for dm, EACH 06/05/17 Linagliptin (TRADJENTA) 5 Mg Tablet, 1 TAB PO DAILY, #90 TAB 1 Refill 06/05/17 Alendronate Sodium (ALENDRONATE SODIUM) 70 Mg Tablet, 1 TAB PO WEEKLY, #4 TAB 3 Refills 06/05/17 Losartan Potassium (LOSARTAN POTASSIUM) 100 Mg Tablet, 100 MG PO DAILY 07/29/13 Discontinued Reported Medications Oxybutynin Chloride (OXYBUTYNIN CHLORIDE ER) 10 Mg Tab.er.24, 10 MG PO DAILY for overactive bladder 12/12/18 GABBY POLO MD Apr 17, 2019 14:23
== END 2019-04-17 15:00 | disposition home health service (06) | DRG 291 ==
LOC: ER 14:22 → 1 SOUTH 18:02
PROVIDERS: ADMIT Family Medicine; ATTEND Family Medicine
DX: I13.0 Hypertensive heart and chronic kidney disease with heart failure and stage 1 through stage 4 chronic kidney disease, or unspecified chronic kidney disease (principal); I50.33 Acute on chronic diastolic (congestive) heart failure; N39.0 Urinary tract infection, site not specified; D61.818 Other pancytopenia; E44.0 Moderate protein-calorie malnutrition; D50.9 Iron deficiency anemia, unspecified; E03.9 Hypothyroidism, unspecified; E11.22 Type 2 diabetes mellitus with diabetic chronic kidney disease; E78.5 Hyperlipidemia, unspecified; I25.10 Atherosclerotic heart disease of native coronary artery without angina pectoris; M19.90 Unspecified osteoarthritis, unspecified site; J44.9 Chronic obstructive pulmonary disease, unspecified; F41.9 Anxiety disorder, unspecified; K74.60 Unspecified cirrhosis of liver; N18.9 Chronic kidney disease, unspecified; Z87.891 Personal history of nicotine dependence; Z90.710 Acquired absence of both cervix and uterus; Z98.61 Coronary angioplasty status; Z88.2 Allergy status to sulfonamides; Z88.8 Allergy status to other drugs, medicaments and biological substances
CPT/HCPCS: 36415; 71045; 74176; 78582; 80048; 80053; 80061; 81001; 82306; 82550; 82553; 82607; 82947; 83036; 83540; 83550; 83605; 83735; 83880; 84443; 84484; 85007; 85018; 85025; 85379; 87086; 87186; 93005; 93306; 94618; 96361; 96365; 96374; A9540; A9558; J0696; J1815; J1940; J3010; 97535; 99285-25; J7030

== ENCOUNTER 2019-10-29 11:13 | Observation (INO) | payer MEDICARE ==
[~2019-10-29] VITALS: Ht 165.1 cm; Wt 85.4 kg
[~2019-10-29 11:13] MED LIST changes: +CITA20TA9 PO; +FERR325T72 PO; -PANT20TA3 PO; +PANT20TA4 PO; +SULF1TAB24 PO
[2019-10-29] MEDS ORDERED: IV NORMAL SALINE 1,000ML 1,000 ML IV ONE (11:30)
[2019-10-29] MEDS ORDERED: PANTOPRAZOLE IV 40 MG VIAL. IVP ONE (11:30)
[2019-10-29 12:10] LABS: BASO % 1 % (0-3); EOS # 0.1 x10^3/uL (0.0-0.7); EOS % 6 % (0-3); HEMATOCRIT 24.2 % (36.0-47.0); HEMOGLOBIN 7.4 g/dL (12.0-15.5); LYMPH # 0.7 x10^3/uL (1.0-4.8); LYMPH % 31 % (24-48); MEAN CORPUSCULAR HEMOGLOBIN 33 pg (25-35); MEAN CORPUSCULAR HGB CONC 31 g/dL (31-37); MEAN CORPUSCULAR VOLUME 108 fL (79-100); MONO # 0.2 x10^3/uL (0.0-1.1); MONO % 7 % (0-9); NEUT # 1.3 x10^3uL (1.8-7.7); NEUT % 55 % (31-73); PLATELET COUNT 76 x10^3/uL (140-400); RED BLOOD COUNT 2.24 x10^6/uL (3.50-5.40); RED CELL DISTRIBUTION WIDTH 19.4 % (11.5-14.5); WHITE BLOOD COUNT 2.4 x10^3/uL (4.0-11.0)
[2019-10-29 12:23] LABS: CALCIUM 8.2 mg/dL (8.5-10.1); CREATININE 1.4 mg/dL (0.6-1.0); GFR 36.8; POTASSIUM 4.4 mmol/L (3.5-5.1)
[2019-10-29 12:38] LABS: ALBUMIN 2.4 g/dL (3.4-5.0); ALBUMIN/GLOBULIN RATIO 0.7 (1.0-1.7); MAGNESIUM 2.3 mg/dL (1.8-2.4); TOTAL BILIRUBIN 0.6 mg/dL (0.2-1.0)
--- NOTE | 2019-10-29 12:43 | PHYS DOC ---
Past History Past Medical History: Anemia, Anxiety, Arthritis, CAD, CHF, COPD, Diabetes, Hypertension, Pneumonia, Renal Disease, Other Past Surgical History: Cholecystectomy, Hysterectomy, Tonsillectomy Smoking: Quit Greater Than 1 Year Alcohol Use: None Drug Use: None General Adult EDM: Chief Complaint: FATIGUE HPI: HPI: Summer Mason is a 74-year-old female who presents with general fatigue over the last 6 months as well as recent onset abdominal pain. She states that over the last 6 months she has felt tired without explanation. She has been following up with Dr. Domingo for this complaint and has been found to be anemic. While the cause is uncertain, she is currently taking 3 different iron pills. Most recently, she gave a stool sample 5 days ago which was found to have blood in it. She is unsure of when the abdominal pain began, but she locates it primarily in the right upper quadrant, left flank, and groin bilaterally. She a ffirms shortness of breath that is chronic and unchanged, and for which she is on 2 L of oxygen at home. Patient denies all other complaints including dysuria, hematuria, incontinence, tasha hematochezia, or numbness down her legs. Patient affirms history of cholecystectomy, hypothyroidism, hypertension, and hypercholesterolemia. Patient denies improvement in condition through i ntervention to this point. Denies known exposure to COVID19. Review of Systems: Review of Systems: Constitutional: Denies fever or chills ; affirms general malaise and fatigue HENT: Denies nasal congestion or sore throat Respiratory: Denies cough or shortness of breath Cardiovascular: Denies chest pain or palpitations GI: Denies nausea or vomiting; affirms abdominal pain : Denies dysuria or hematuria Musculoskeletal: Denies back pain or joint pain Integument: Denies rash or skin lesions Neurologic: Denies headache, focal weakness or sensory changes; reports generalized weakness Complete systems were reviewed and found to be within normal limits, except as documented in this note. Current Medications: Current Meds: Current Medications Medications (Trade) Dose Ordered Sig/Bita Start Time Stop Time Status Last Admin Dose Admin Pantoprazole Sodium (Protonix Vial) 40 mg 1X ONCE 10/29/19 11:30 10/29/19 11:31 DC 10/29/19 11:48 40 MG Sodium Chloride 1,000 ml @ 1,000 mls/hr 1X ONCE 10/29/19 11:30 10/29/19 12:29 10/29/19 11:47 1,000 MLS/HR Allergies: Allergies: Allergies Coded Allergies Type Severity Reaction Last Updated Verified Sulfa (Sulfonamide Antibiotics) Allergy Intermediate 04/15/19 No liraglutide Allergy Unknown 04/15/19 Yes niacin Allergy Unknown 04/15/19 Yes Physical Exam: PE: Constitutional: Well developed, well nourished, no acute distress, non-toxic appearance HENT: Normocephalic, atraumatic Lungs & Thorax: No respiratory distress, equal chest rise and fall, clear to all station bilaterally Cardiac: Regular rate rhythm, no murmur, radial posterior tibial and dorsal pedis pulses 2+ bilaterally Abdomen: Soft, mild tenderness to palpation of left flank and bilateral lower quadrants Skin: Warm, dry, no erythema, no rash, pale Back: No tenderness, no CVA tenderness Extremities: No tenderness, ROM intact, no edema Neurologic: Alert and oriented X 3, normal motor function, normal sensory function, no focal deficits noted Psychologic: Affect normal, judgment normal Current Patient Data: Vital Signs: Vital Signs Date Time Temp Pulse Resp B/P (MAP) Pulse Ox O2 Delivery O2 Flow Rate FiO2 10/29/19 11:31 98.1 22 126/95 (105) EKG: EKG: @1138 NSR with artifact versus A. fib cannot be determined with certainty at[address] elevation or depression Normal T wave morphology QRS 74 ms QT 398 ms [id number] Radiology/Procedures: Radiology/Procedures: Exam: CT abdomen/pelvis without intravenous contrast Indication: Abdominal pain Comparison: CT abdomen pelvis 04/17/2019 Technique: Helical CT imaging performed of the abdomen and pelvis without the use of intravenous contrast. Sagittal and coronal reformats were obtained. One or more of the following individualized dose reduction techniques were utilized for this examination: 1. Automated exposure control 2. Adjustment of the mA and/or kV according to patient size 3. Use of iterative reconstruction technique. Findings: Inherently limited evaluation without intravenous contrast. Lower chest: Increased small left and tiny right pleural effusion. Unchanged interlobular septal thickening in the lung bases. Unchanged 8 mm nodular opacity in the inferior right middle lobe along the minor fissure. Mild cardiomegaly is unchanged. Two right cardiophrenic lymph node measuring up to 7 mm short axis are unchanged, nonspecific. Liver: The liver is unchanged in appearance with nodular contour. The main portal vein is enlarged measuring 1.5 cm, unchanged. The periumbilical vein is recanalized. Gallbladder/Biliary Tree: Gallbladder is not visualized. No biliary duct dilatation. Pancreas: Normal. Spleen: Unchanged splenomegaly with the spleen measuring 15 cm in AP diameter. Adrenal Glands: Normal. Kidneys/Ureters/Bladder: No hydronephrosis or nephrolithiasis. Ureters and bladder are normal. Reproductive Organs: Uterus is surgically absent. No adnexal mass. Stomach, small bowel, and colon: The stomach and small bowel are normal. There is new wall thickening of the ascending colon. Vasculature: Severe calcified aortoiliac atherosclerosis including calcifications at abdominal branch origins. No abdominal aortic aneurysm. Lymph Nodes: No lymphadenopathy. Peritoneum and retroperitoneum: New small volume of ascites. No free air. Bones: The bones are diffusely demineralized. Chronic mild wedging of T12 and L1 is unchanged. Lumbar scoliosis, multilevel degenerative disc disease and canal narrowing redemonstrated. Canal narrowing is greatest at L3-L4 where it appears severe. Moderate osteoarthrosis of the hips. Impression: 1. Cirrhosis with stigmata of portal hypertension including unchanged splenomegaly. New small volume ascites. 2. New wall thickening of the ascending colon is likely related to portal hypertension. 3. Severe calcified aortoiliac atherosclerosis. 4. Increased small bilateral pleural effusions. Unchanged cardiomegaly and probable mild interstitial pulmonary edema. Electronically signed by: Kristina Stevens MD (10/29/2019 12:44 PM) [id number] Course & Med Decision Making: Course & Med Decision Making Pertinent Labs and Imaging studies reviewed. (See chart for details) Patient presents with generalized weakness and abdominal pain. hx of anemia and outpatient stool sample that reportedly was positive for occult blood. EKG stable. Labs obtained and posted to chart. Pancytopenia noted. CT abd/pelvis without acute process. Cannot exclude COVID 19. COVID precautions in place. COVID testing pending. Patient requiring admission for further evaluation and treatment. Discussed with Dr. Polo (PCP) who is in agreement with admit. Discussed findings and plan with patient, who acknowledges understanding and agreement. Mp Disclaimer: Mp Disclaimer: This electronic medical record was generated, in whole or in part, using a voice recognition dictation system. Departure Departure: Impression: Primary Impression: Generalized weakness Additional Impressions: Pancytopenia Suspected 2019 novel coronavirus infection Disposition: ADMITTED INPATIENT Admitting Physician: Gabby Polo Condition: STABLE Referrals: GABBY POLO MD (PCP) Justification of Admission: Justification of Admission: Justification of Admission Dx: Yes Comments: Generalized weakness, pancytopenia, suspected COVID19 COVID-19 Assessment COVID-19 Patient Risks: Age 65 or older: Yes Sign of co-morbidity: Yes Exp to person + for COVID: No Exp to PUI: No Travel from affected area: No Lower respiratory symptoms: No Fever: No Other: Yes (Fatigue) PPE Use: Full PPE with N95 mask or PAPR: Yes PARMINDER HOUGH DO Oct 29, 2019 12:43
--- NOTE | 2019-10-29 12:47 | RAD ---
Exam: CT abdomen/pelvis without intravenous contrast Indication: Abdominal pain Comparison: CT abdomen pelvis 04/17/2019 Technique: Helical CT imaging performed of the abdomen and pelvis without the use of intravenous contrast. Sagittal and coronal reformats were obtained. One or more of the following individualized dose reduction techniques were utilized for this examination: 1. Automated exposure control 2. Adjustment of the mA and/or kV according to patient size 3. Use of iterative reconstruction technique. Findings: Inherently limited evaluation without intravenous contrast. Lower chest: Increased small left and tiny right pleural effusion. Unchanged interlobular septal thickening in the lung bases. Unchanged 8 mm nodular opacity in the inferior right middle lobe along the minor fissure. Mild cardiomegaly is unchanged. Two right cardiophrenic lymph node measuring up to 7 mm short axis are unchanged, nonspecific. Liver: The liver is unchanged in appearance with nodular contour. The main portal vein is enlarged measuring 1.5 cm, unchanged. The periumbilical vein is recanalized. Gallbladder/Biliary Tree: Gallbladder is not visualized. No biliary duct dilatation. Pancreas: Normal. Spleen: Unchanged splenomegaly with the spleen measuring 15 cm in AP diameter. Adrenal Glands: Normal. Kidneys/Ureters/Bladder: No hydronephrosis or nephrolithiasis. Ureters and bladder are normal. Reproductive Organs: Uterus is surgically absent. No adnexal mass. Stomach, small bowel, and colon: The stomach and small bowel are normal. There is new wall thickening of the ascending colon. Vasculature: Severe calcified aortoiliac atherosclerosis including calcifications at abdominal branch origins. No abdominal aortic aneurysm. Lymph Nodes: No lymphadenopathy. Peritoneum and retroperitoneum: New small volume of ascites. No free air. Bones: The bones are diffusely demineralized. Chronic mild wedging of T12 and L1 is unchanged. Lumbar scoliosis, multilevel degenerative disc disease and canal narrowing redemonstrated. Canal narrowing is greatest at L3-L4 where it appears severe. Moderate osteoarthrosis of the hips. Impression: 1. Cirrhosis with stigmata of portal hypertension including unchanged splenomegaly. New small volume ascites. 2. New wall thickening of the ascending colon is likely related to portal hypertension. 3. Severe calcified aortoiliac atherosclerosis. 4. Increased small bilateral pleural effusions. Unchanged cardiomegaly and probable mild interstitial pulmonary edema. Electronically signed by: Kristina Stevens MD (10/29/2019 12:44 PM) [id number]
[2019-10-29 14:21] LABS: % BANDS 10 % (0-9); % BASOS 1 % (0-3); % EOS 6 % (0-5); % LYMPHS 31 % (24-48); % MONOS 3 % (0-10); % MYELOS 1 % (0-0); % SEGS 48 % (35-66)
[2019-10-29 14:38] LABS: OVALOCYTES FEW; POLYCHROMASIA PRESENT; TEAR DROP CELLS FEW
[2019-10-29 14:39] LABS: PLT ESTIMATE DECREASED (ADEQUATE)
[2019-10-29] MEDS ORDERED: ONDANSETRON PF 4 MG/2 ML VIAL. IVP PRN (14:45)
[2019-10-29] MEDS ORDERED: DEXTROSE 50% 25 GM / 50ML DISP.SYRIN. IV PRN (15:00)
[2019-10-29 16:07] VITALS: BP 123/66
--- NOTE | 2019-10-29 16:35 | NUR ---
PATIENT IS 74 Y O F, ADMITTED TO ROOM 123, ARRIVED FROM ED VIA EMS , TRANSFERRED WITH ASSIST X 2 TO BED. PATIENT IS A/O X 4 CALM AND COOPERATIVE UPON ADMISSION ASSESSMENT, DENIED PAIN, N/V/D, PATIENT C/O DRY NON PRODUCTIVE COUGH, WEAKNESS, DIZZINESS, LOSING BALLANCE, SOA. 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 PATIENT WAS ORIENTED TO ROOM AND HOSPITAL POLICIES, PT IS CURRENTLY RESTING COMFORTABLY IN A BED. WILL CTM.
[2019-10-29] MEDS: INSULIN LISPRO 300 UNITS/3 ML VIAL. SQ SCH (17:00)
--- NOTE | 2019-10-29 17:35 | NUR ---
PATIENT HAD TESTED FOR COVID IN ED, RESULT IS PENDING. PATIENT IS CURRENTLY ON ISOLATION, AIRBORNE/ CONTACT PRECAUTIONS INITIATED.
[2019-10-29] MEDS ORDERED: FLU VACC QS 2020-21(6MOS+)/PF 0.5 ML SYRINGE. VAX IM ONE (18:00)
[2019-10-29 18:25] VITALS: BP 145/53
[2019-10-29] MEDS ORDERED: ZOLPIDEM 5 MG TABLET. PO PRN (21:15)
--- NOTE | 2019-10-29 22:11 | RAD ---
EXAM: CT OF THE CHEST WITHOUT CONTRAST. HISTORY: Shortness of breath, cough, fatigue. TECHNIQUE: Computed tomography of the chest was performed without intravenous contrast. One or more of the following individualized dose reduction techniques were utilized for this examination: 1. Automated exposure control. 2. Adjustment of the mA and/or kV according to patient size. 3. Use of iterative reconstruction technique. COMPARISON: 12/12/2016. FINDINGS: Images of the upper abdomen reveal moderate splenomegaly at 16 cm. Bone windows reveal no suspicious lesions. A lower paratracheal lymph node measures 15 x 13 mm. Epicardial nodes measure up to 11 mm on the right. These appear stable chronically and are likely reactive. There are no clearly pathologically enlarged lymph nodes. There are small bilateral pleural effusions. There is no pericardial effusion. The heart is mildly enlarged. Pericardial calcifications are noted. There are diffuse coronary atherosclerotic calcifications. There is mild to moderate centrilobular emphysema in the apices. There is diffuse interstitial line thickening elsewhere with a basilar predominance. A few small nodules measure up to 3 mm in the right upper lobe. Calcified granulomas are noted elsewhere. IMPRESSION: 1. Interstitial line thickening appears mildly increased since the prior study. This is consistent with interstitial lung disease, possibly with superimposed mild pulmonary edema. 2. Small bilateral pleural effusions. 3. Mild cardiomegaly. Pericardial calcifications. Correlate to exclude constrictive pericarditis. 4. Moderate splenomegaly. Electronically signed by: Beto Jack MD (10/29/2019 10:08 PM) [facility]
[2019-10-29 23:21] VITALS: BP 106/52
[2019-10-30 05:25] VITALS: BP 118/57
[2019-10-30 05:59] LABS: BASO % 1 % (0-3); EOS # 0.2 x10^3/uL (0.0-0.7); EOS % 9 % (0-3); HEMOGLOBIN 7.2 g/dL (12.0-15.5); LYMPH # 0.8 x10^3/uL (1.0-4.8); LYMPH % 38 % (24-48); MEAN CORPUSCULAR HEMOGLOBIN 33 pg (25-35); MEAN CORPUSCULAR HGB CONC 31 g/dL (31-37); MEAN CORPUSCULAR VOLUME 106 fL (79-100); MONO # 0.1 x10^3/uL (0.0-1.1); MONO % 8 % (0-9); NEUT # 0.9 x10^3uL (1.8-7.7); NEUT % 44 % (31-73); PLATELET COUNT 68 x10^3/uL (140-400); RED BLOOD COUNT 2.16 x10^6/uL (3.50-5.40)
[2019-10-30] MEDS: LEVOTHYROXINE 150 MCG TABLET PO SCH ×2 (06:00→10:38)
[2019-10-30 06:10] LABS: CALCIUM 7.8 mg/dL (8.5-10.1); CREATININE 1.4 mg/dL (0.6-1.0); GFR 36.8; POTASSIUM 4.2 mmol/L (3.5-5.1)
--- NOTE | 2019-10-30 07:33 | EKG ---
[address] [address] Test Date: 2019-10-29 Test Time: 11:38:09 Pat Name: MAIKEL PINEDO Department: Room: Gender: F Home Service Consultant: CHIO : [id number] Requested By: PARMINDER HOUGH Order Number: [id number] Reading MD: Measurements Intervals Ellinger Rate: 79 P: 0 VT: 208 QRS: 19 QRSD: 74 T: 64 QT: 398 QTc: 457 Interpretive Statements SINUS RHYTHM LOW LIMB LEAD VOLTAGE NO SPECIFIC ECG ABNORMALITIES RI6.02 No previous ECG available for comparison
--- NOTE | 2019-10-30 07:59 | NUR ---
IP: patient PUI for COVID-19, requires contact and airborne precautions.
[2019-10-30] MEDS ORDERED: FERROUS SULFATE 325 MG TABLET. PO SCH (08:00)
[2019-10-30] MEDS: INSULIN LISPRO 300 UNITS/3 ML VIAL. SQ SCH ×2 (08:00→12:00)
[2019-10-30] MEDS ORDERED: PANTOPRAZOLE 40 MG TABLET. PO SCH (09:00)
[2019-10-30] MEDS ORDERED: CITALOPRAM 20 MG TABLET. PO SCH (09:00)
[2019-10-30] MEDS ORDERED: ASPIRIN CHEWABLE 81 MG TABLET. PO SCH (09:00)
[2019-10-30] MEDS ORDERED: FUROSEMIDE 20 MG TABLET PO SCH (09:00)
[2019-10-30] MEDS ORDERED: INSULIN GLARGINE SYRINGE. SQ SCH (09:00)
[2019-10-30] MEDS ORDERED: LOSARTAN 50 MG TABLET. PO SCH (09:00)
[2019-10-30] MEDS ORDERED: LINAGLIPTIN 5 MG TABLET PO SCH (09:00)
[2019-10-30 11:05] VITALS: BP 131/60
[2019-10-30 15:13] VITALS: BP 98/55
--- NOTE | 2019-10-30 15:46 | NUR ---
Patient being discharged to [facility] for a higher level of care due to a GI bleed. Patient needs a GI consult. Patient is being transferred to room 675. Patient left with all her belongings. Patient left the unit via gurney, transported by EMS.
--- NOTE | 2019-10-30 16:45 | NUR ---
Wound Care Pt transferred to [facility] prior to arrival of [facility]. Will assess tomorrow at [facility].
--- NOTE | 2019-10-30 20:45 | DS ---
DATE OF DISCHARGE: 10/30/2019 HOSPITAL COURSE: The patient is a 74-year-old female came in with abdominal discomfort. The patient continued to have some bright red rectal bleeding, started to have it here. As a result of that, the patient was transferred down to [place] to be evaluated by a futures trader, the bleed (NC), bright red was new. The patient's blood pressure dropped down to 98/55, respiratory rate 18, pulse 74. The patient's hemoglobin is 7.2, white count 2, platelets had come down from 76 to 68,000. Percent retic 5.8 and absolute retic 0.124, both of those were high indicating some type of blood loss in her system; therefore, ____. She is coronavirus negative. Her white count was also noted to be leukopenic as well as thrombocytopenia, obviously possible leukemias of some sort. Her blood was sent off to pathology for peripheral smear. In any case, the patient was transferred via EMS to [place] for further evaluation there. IMPRESSION: Acute gastrointestinal bleed, thrombocytopenia, leukopenia, abdominal pain, severe protein malnutrition and then be followed up after she is discharged. GABBY POLO MD DR: CHEMA/bri JOB#: [id number] / [id number]
[2019-10-31 07:10] LABS: HEMOGLOBIN A1C 4.7 % (4.8-5.6)
--- NOTE | 2019-10-31 14:14 | NUR ---
IP: notified nurse Lorenza at [facility] of COVID result.
== END 2019-10-30 15:45 | disposition short-term general hospital (02) ==
LOC: ER 11:13 → 1 SOUTH 14:20 → ER 15:36
PROVIDERS: ADMIT Family Medicine; ATTEND Family Medicine
DX: R53.1 Weakness (principal); Z20.828 Contact with and (suspected) exposure to other viral communicable diseases; D61.818 Other pancytopenia; I11.0 Hypertensive heart disease with heart failure; I50.9 Heart failure, unspecified; I25.10 Atherosclerotic heart disease of native coronary artery without angina pectoris; E11.9 Type 2 diabetes mellitus without complications; E03.9 Hypothyroidism, unspecified; I70.8 Atherosclerosis of other arteries; K74.60 Unspecified cirrhosis of liver; E43 Unspecified severe protein-calorie malnutrition; J44.9 Chronic obstructive pulmonary disease, unspecified; D72.829 Elevated white blood cell count, unspecified; D69.6 Thrombocytopenia, unspecified; D64.9 Anemia, unspecified; F41.9 Anxiety disorder, unspecified; E78.00 Pure hypercholesterolemia, unspecified; Z87.891 Personal history of nicotine dependence; Z90.710 Acquired absence of both cervix and uterus; Z90.49 Acquired absence of other specified parts of digestive tract; Z98.890 Other specified postprocedural states
CPT/HCPCS: 36415; 71250; 74176; 80048; 80053; 82553; 82607; 82947; 83036; 83540; 83550; 83605; 83690; 83735; 84443; 84466; 84484; 85007; 85025; 85045; 85610; 85730; 93005; 96361; 96374; 96375; 99285; C9113; G0378; J2405; J7030; U0003; G0379

== ENCOUNTER 2019-12-22 13:38 | Inpatient (IN) | payer MEDICARE ==
[~2019-12-22] VITALS: Ht 160 cm; Wt 83.0 kg
[~2019-12-22 13:38] MED LIST changes: -ALEN70TA6 PO; +ALEN70TA60 PO
--- NOTE | 2019-12-22 15:19 | PHYS DOC ---
Past History Past Medical History: Anemia, Anxiety, Arthritis, CAD, CHF, COPD, Diabetes, High Cholesterol, Hypertension, Hypothyroid, Pneumonia, Renal Disease, Other Additional Past Medical Histor: FE DEFICIENCY (PARMINDER CAMPBELL APRN) Past Surgical History: Cholecystectomy, Hysterectomy, Tonsillectomy (PARMINDER CAMPBELL APRN) Smoking: Quit Greater Than 1 Year Alcohol Use: None Drug Use: None (PARMINDER CAMPBELL APRN) Adult General Chief Complaint Chief Complaint: ABDOMINAL PAIN HPI HPI Patient is a 74 year old female who presents with complaints of a 2 to 3-week history of right upper and lower quadrant pain along with right flank pain along with right mid back pain stating that she is just felt sick for several weeks. Patient states that she seen her Dr. Polo today and was sent to be admitted. Patient also states that her oxygen saturation was low when she was at Dr. Polo's office. Patient denies chest pains, shortness of breath, fever or chills, visual changes, nasal congestion, edema or swelling of her extremities, nausea, vomiting, diarrhea or constipation. Patient denies any problems urinating, denies pressure with urination, denies burning with urination. Patient does complain of right-sided mid back pain, denies pain in her joints, denies skin rashes. Patient denies headaches, focal weaknesses, sensory changes, swelling of her glands, depressions, anxieties, homicidal or suicidal ideations. Patient denies Covid symptoms, stating that she was tested earlier this month, patient states that she does not wish to be tested today. (PARMINDER CAMPBELL APRN) Review of Systems Review of Systems Constitutional: Denies fever or chills Eyes: Denies change in visual acuity, redness, or eye pain HENT: Denies nasal congestion or sore throat Respiratory: Denies cough or shortness of breath at rest, patient states that she gets short of breath with ambulation otherwise she feels fine, patient states she is on 2 L of oxygen per nasal cannula at all times. Cardiovascular patient denies chest pain, edema, or swelling of her extremities. GI: Denies, nausea, vomiting, bloody stools or diarrhea, complains of right upper and lower quadrant pain, right flank pain. : Denies dysuria or hematuria Musculoskeletal: Denies pain in her joints, complains of right mid back pain. Integument: Denies rash or skin lesions Neurologic: Denies headache, focal weakness or sensory changes Psychiatric: Patient denies homicidal or suicidal ideation, patient denies anxieties or depressions. All other systems were reviewed and found to be within normal limits, except as documented in this note. (PARMINDER CAMPBELL APRN) Allergies Allergies Allergies Coded Allergies Type Severity Reaction Last Updated Verified Sulfa (Sulfonamide Antibiotics) Allergy Intermediate 04/15/19 No liraglutide Allergy Unknown 04/15/19 Yes niacin Allergy Unknown 04/15/19 Yes (PARMINDER CAMPBELL APRN) Physical Exam Physical Exam Constitutional: Well developed, well nourished, no acute distress, non-toxic appearance. HENT: Normocephalic, atraumatic, bilateral external ears normal, oropharynx moist, no oral exudates, nose normal. Eyes: PERRLA, EOMI, conjunctiva normal, no discharge. Neck: Normal range of motion, no tenderness, supple, no stridor. Cardiovascular:Heart rate regular rhythm, no murmur Lungs & Thorax: Bilateral breath sounds clear to auscultation all lung gauthier, patient is in no respiratory distress, patient is on 2 L O2 per nasal cannula currently at 97% O2 sat Abdomen: Bowel sounds normal all 4 quadrants auscultation, soft, with tenderness to right upper, right lower, right flank to palpation, no rebound tenderness, no McBurney's point tenderness, negative psoas sign, no masses, no pulsatile masses. Skin: Warm, dry, no erythema, no rash. Back: No tenderness, patient has right-sided CVA tenderness upon exam. Extremities: No tenderness, no cyanosis, no clubbing, ROM intact, no edema. Neurologic: Alert and oriented X 3, normal motor function, normal sensory function, no focal deficits noted. Psychologic: Affect normal, judgement normal, mood normal. (PARMINDER CAMPBELL APRN) Current Patient Data Vital Signs Vital Signs Date Time Temp Pulse Resp B/P (MAP) Pulse Ox O2 Delivery O2 Flow Rate FiO2 12/22/19 13:45 98.2 89 20 127/66 (86) 96 Room Air Lab Results Laboratory Tests Test 12/22/19 14:25 12/22/19 15:20 White Blood Count 3.4 x10^3/uL Red Blood Count 2.22 x10^6/uL Hemoglobin 7.7 g/dL Hematocrit 25.4 % Mean Corpuscular Volume 114 fL Mean Corpuscular Hemoglobin 35 pg Mean Corpuscular Hemoglobin Concent 30 g/dL Red Cell Distribution Width 19.4 % Platelet Count 124 x10^3/uL Neutrophils (%) (Auto) 57 % Lymphocytes (%) (Auto) 29 % Monocytes (%) (Auto) 7 % Eosinophils (%) (Auto) 5 % Basophils (%) (Auto) 3 % Neutrophils # (Auto) 1.9 x10^3uL Lymphocytes # (Auto) 1.0 x10^3/uL Monocytes # (Auto) 0.2 x10^3/uL Eosinophils # (Auto) 0.2 x10^3/uL Basophils # (Auto) 0.1 x10^3/uL Platelet Estimate Pending Anisocytosis Slight Macrocytosis Mod Rouleau Present Sodium Level 140 mmol/L Potassium Level 5.1 mmol/L Chloride Level 111 mmol/L Carbon Dioxide Level 18 mmol/L Anion Gap 11 Blood Urea Nitrogen 31 mg/dL Creatinine 1.5 mg/dL Estimated GFR (Cockcroft-Gault) 33.9 BUN/Creatinine Ratio 21 Glucose Level 209 mg/dL Calcium Level 8.2 mg/dL Magnesium Level 2.7 mg/dL Total Bilirubin 0.5 mg/dL Aspartate Amino Transf (AST/SGOT) 48 U/L Alanine Aminotransferase (ALT/SGPT) 23 U/L Alkaline Phosphatase 124 U/L Troponin I Quantitative < 0.017 ng/mL JB-Cye-Y-Type Natriuretic Peptide 704 pg/mL Total Protein 6.0 g/dL Albumin 2.5 g/dL Albumin/Globulin Ratio 0.7 Lipase 335 U/L Urine Collection Type Unknown Urine Color Yellow Urine Clarity Clear Urine pH 5.5 Urine Specific [place] 1.025 Urine Protein Neg Urine Glucose (UA) Neg mg/dL Urine Ketones (Stick) Neg mg/dL Urine Blood Neg Urine Nitrite Pos Urine Bilirubin Neg Urine Urobilinogen Dipstick 0.2 mg/dL Urine Leukocyte Esterase Trace Urine RBC 1-2 /HPF Urine WBC 20-40 /HPF Urine Squamous Epithelial Cells Few /LPF Urine Bacteria Many /HPF Current Medications Medications (Trade) Dose Ordered Sig/Bita Route PRN Reason Start Time Stop Time Status Last Admin Dose Admin Fentanyl Citrate (Fentanyl 2ml Vial) 25 mcg 1X ONCE IVP 12/22/19 16:00 12/22/19 16:01 DC 12/22/19 15:50 Sodium Chloride 1,000 ml @ 1,000 mls/hr 1X ONCE IV 12/22/19 16:00 12/22/19 16:59 DC 12/22/19 15:52 Ceftriaxone Sodium 2 gm/ Sodium Chloride 100 ml @ 200 mls/hr 1X ONCE IV 12/22/19 16:45 12/22/19 17:14 12/22/19 16:53 Ceftriaxone Sodium (Rocephin) 2 gm STK-MED ONCE IV 12/22/19 16:44 12/22/19 16:45 DC Sodium Chloride 100 ml @ As Directed STK-MED ONCE .ROUTE 12/22/19 16:45 12/22/19 16:45 DC (PARMINDER CAMPBELL APRN) EKG EKG EKG performed at 1544 by ED nursing staff shows normal sinus rhythm without ectopy and a rate of 83 bpm, [place] interval 0.188, QTc interval 0.454, no STEMI, no ischemia, no coronary syndrome noted EKG interpreted by ED attending Dr. Quinn (PARMINDER CAMPBELL APRN) Radiology/Procedures Radiology/Procedures STATUS: REG ER ORD. PHYSICIAN: PARMINDER CAMPBELL APRN REASON: RIGHT FLANK PAIN, RLQ PAIN PROCEDURE: CT ABDOMEN PELVIS WO CONTRAST Exam: CT abdomen and pelvis without contrast INDICATION: Right flank pain, right lower quadrant pain TECHNIQUE: Sequential axial images through the abdomen and pelvis obtained without IV contrast. Sagittal and coronal reformatted images were reconstructed from the axial data and reviewed. Comparisons: 10/29/2019 FINDINGS: Heart size is normal. No pericardial effusion. Small left pleural effusion. Strandy opacities at dependent portion lungs likely representing atelectasis. Evaluation of solid organs is limited secondary to noncontrast technique. Nodular contour the liver. Pancreas and adrenals are unremarkable. Spleen is enlarged measuring up to 15.4 cm in length. Gallbladder is identified. No perinephric inflammation or hydronephrosis. No renal or ureteral calculi are identified. Bladder is decompressed not well evaluated. Uterus is absent. No abnormal adnexal mass. Large and small bowel are unremarkable. Appendix is not identified. Trace free fluid in the pelvis. No free intra-abdominal air. No obstruction. Abdominal aorta has a normal course and caliber. No enlarged intra-abdominal lymph nodes are identified. No suspicious osseous lesions or acute fractures. IMPRESSION: 1. Cirrhotic morphology of the liver with secondary sequela of portal hypertension including splenomegaly and recanalized umbilical vein. There is trace amount of ascites in the pelvis, which could also be related to portal hypertension, however is nonspecific. 2. Otherwise, no acute process is identified within the abdomen or pelvis. Exposure: One or more of the following in the visualized dose reduction techniques were utilized for this examination: 1. Automated exposure control 2. Adjustment of the MA and/or KV according to patient size 3. Use of iterative of reconstructive technique Electronically signed by: Shayna Cedillo MD (12/22/2019 4:16 PM) [facility] DICTATED AND SIGNED BY: SHAYNA CEDILLO MD DATE: 12/22/19 1616 CC: PARMINDER CAMPBELL APRN; GABBY POLO MD ~ REASON: SHORT OF BREATH, HYPOXIA PROCEDURE: CHEST PA & LATERAL Chest radiograph 12/22/2019 3:19 PM INDICATION: Shortness of breath, hypoxia COMPARISON: 04/15/2019 TECHNIQUE: Frontal and lateral views of the chest are provided. FINDINGS: The cardiomediastinal silhouette is within normal limits. Similar perihilar coarse interstitial changes are identified as compared to prior examination. Mild flattening of the diaphragms may be associated with air trapping as may be seen with COPD. Pulmonary emphysematous changes are identified. No new airspace consolidation. No significant pulmonary vascular congestion or pneumothorax. No significant pleural effusions. No significant osseous abnormality is identified. IMPRESSION: COPD changes without acute cardiopulmonary process. Chronic interstitial changes are noted. Superimposed interstitial pneumonitis remains a differential consideration. Electronically signed by: Roman Freeman MD (12/22/2019 3:58 PM) [id number] DICTATED AND SIGNED BY: ROMAN FREEMAN MD DATE: 12/22/19 1558 CC: PARMINDER CAMPBELL APRN; GABBY POLO MD ~ (PARMINDER CAMPBELL APRN) Heart Score Risk Factors: Risk Factors: DM, Current or recent (<one month) smoker, HTN, HLP, family history of CAD, obesity. Risk Scores: Risk Factors: DM, Current or recent (<one month) smoker, HTN, HLP, family history of CAD, obesity. (PARMINDER CAMPBELL APRN) Course & Med Decision Making Course & Med Decision Making Pertinent Labs and Imaging studies reviewed. (See chart for details) 74-year-old patient sent here by Dr. Polo for abdominal pains and dyspnea on exertion along with decreased O2 sat with exertion. In ER work-up was performed patient's urine is infected, her venous blood labs were equivocal for infectious process, patient's abdominal CAT scan was negative for infectious process read by house radiologist, patient's chest x-ray questionable pneumonitis per house radiologist interpretation. Patient was afebrile, vital signs stable, patient was not ambulated during ER stay, patient maintained a 93 to 97% O2 sat, is on 2 L per nasal cannula, discussed case with Dr. Polo who recommended admission to the hospital telemetry for UTI and hypoxia on exertion. Patient was started on 2 g Rocephin IV, discussed admission with patient who was amenable to this plan. Patient was admitted to the telemetry unit under Dr. Polo's care. (PARMINDER CAMPBELL APRN) Course & Med Decision Making I have reviewed the PA/CONSUMER INSIGHTS SPECIALIST's note and plan of care. I was available for consultation as needed during the patient's visit in the emergency department. I agree with the clinical impression, plan, and disposition. Patient to be admitted to [facility] for continued management of UTI, anemia, and resolved hypoxia (SERGEY QUINN DO) Dragon Disclaimer Dragon Disclaimer This electronic medical record was generated, in whole or in part, using a voice recognition dictation system. (PARMINDER CAMPBELL APRN) Departure Departure: Impression: Primary Impression: Hypoxia Additional Impression: UTI (urinary tract infection) Disposition: ADMITTED INPT THIS HOSP ([facility]) Admitting Physician: Gabby Polo (PARMINDER CAMPBELL APRN) Admitting Physician: Gabby Polo (SERGEY QUINN DO) Condition: STABLE (ADMITTED TO TELEMETRY FOR HYPOXIA ON EXCERTION, UTI) Referrals: GABBY POLO MD (PCP) Problem Qualifiers Additional Impression: UTI (urinary tract infection) Urinary tract infection type: acute cystitis Hematuria presence: without hematuria Qualified Codes: N30.00 - Acute cystitis without hematuria PARMINDER CAMPBELL APRN Dec 22, 2019 15:19 SERGEY QUINN DO Dec 23, 2019 06:25
[2019-12-22 15:54] LABS: BASO # 0.1 x10^3/uL (0.0-0.2); BASO % 3 % (0-3); EOS # 0.2 x10^3/uL (0.0-0.7); EOS % 5 % (0-3); HEMATOCRIT 25.4 % (36.0-47.0); HEMOGLOBIN 7.7 g/dL (12.0-15.5); LYMPH % 29 % (24-48); MEAN CORPUSCULAR HEMOGLOBIN 35 pg (25-35); MEAN CORPUSCULAR HGB CONC 30 g/dL (31-37); MEAN CORPUSCULAR VOLUME 114 fL (79-100); MONO # 0.2 x10^3/uL (0.0-1.1); MONO % 7 % (0-9); NEUT # 1.9 x10^3uL (1.8-7.7); NEUT % 57 % (31-73); PLATELET COUNT 124 x10^3/uL (140-400); RED BLOOD COUNT 2.22 x10^6/uL (3.50-5.40); RED CELL DISTRIBUTION WIDTH 19.4 % (11.5-14.5); WHITE BLOOD COUNT 3.4 x10^3/uL (4.0-11.0)
[2019-12-22] MEDS ORDERED: IV NORMAL SALINE 1,000ML 1,000 ML IV ONE (16:00)
--- NOTE | 2019-12-22 16:01 | RAD ---
Chest radiograph 12/22/2019 3:19 PM INDICATION: Shortness of breath, hypoxia COMPARISON: 04/15/2019 TECHNIQUE: Frontal and lateral views of the chest are provided. FINDINGS: The cardiomediastinal silhouette is within normal limits. Similar perihilar coarse interstitial changes are identified as compared to prior examination. Mild flattening of the diaphragms may be associated with air trapping as may be seen with COPD. Pulmonary emphysematous changes are identified. No new airspace consolidation. No significant pulmonary vascular congestion or pneumothorax. No significant pleural effusions. No significant osseous abnormality is identified. IMPRESSION: COPD changes without acute cardiopulmonary process. Chronic interstitial changes are noted. Superimposed interstitial pneumonitis remains a differential consideration. Electronically signed by: Shannon Vieira MD (12/22/2019 3:58 PM) [id number]
[2019-12-22 16:02] LABS: CALCIUM 8.2 mg/dL (8.5-10.1); CREATININE 1.5 mg/dL (0.6-1.0); GFR 33.9; POTASSIUM 5.1 mmol/L (3.5-5.1)
[2019-12-22 16:06] LABS: BILIRUBIN,URINE NEG (NEG); CLARITY,URINE CLEAR; COLOR,URINE YELLOW; GLUCOSE,URINE NEG (NEG)
[2019-12-22 16:07] LABS: UROBILINOGEN,URINE 0.2 mg/dL (0.2 mg/dL)
[2019-12-22 16:08] LABS: ALBUMIN 2.5 g/dL (3.4-5.0); ALBUMIN/GLOBULIN RATIO 0.7 (1.0-1.7); MAGNESIUM 2.7 mg/dL (1.8-2.4); TOTAL BILIRUBIN 0.5 mg/dL (0.2-1.0)
[2019-12-22 16:08] LABS: BACTERIA,URINE MANY /HPF (0-FEW); SQUAMOUS EPITHELIAL CELL,UR FEW /LPF
[2019-12-22 16:13] LABS: NITRITE,URINE POS (NEG)
[2019-12-22 16:14] LABS: WBC,URINE 20-40 /HPF (0-4)
--- NOTE | 2019-12-22 16:19 | RAD ---
Exam: CT abdomen and pelvis without contrast INDICATION: Right flank pain, right lower quadrant pain TECHNIQUE: Sequential axial images through the abdomen and pelvis obtained without IV contrast. Sagittal and coronal reformatted images were reconstructed from the axial data and reviewed. Comparisons: 10/29/2019 FINDINGS: Heart size is normal. No pericardial effusion. Small left pleural effusion. Strandy opacities at dependent portion lungs likely representing atelectasis. Evaluation of solid organs is limited secondary to noncontrast technique. Nodular contour the liver. Pancreas and adrenals are unremarkable. Spleen is enlarged measuring up to 15.4 cm in length. Gallbladder is identified. No perinephric inflammation or hydronephrosis. No renal or ureteral calculi are identified. Bladder is decompressed not well evaluated. Uterus is absent. No abnormal adnexal mass. Large and small bowel are unremarkable. Appendix is not identified. Trace free fluid in the pelvis. No free intra-abdominal air. No obstruction. Abdominal aorta has a normal course and caliber. No enlarged intra-abdominal lymph nodes are identified. No suspicious osseous lesions or acute fractures. IMPRESSION: 1. Cirrhotic morphology of the liver with secondary sequela of portal hypertension including splenomegaly and recanalized umbilical vein. There is trace amount of ascites in the pelvis, which could also be related to portal hypertension, however is nonspecific. 2. Otherwise, no acute process is identified within the abdomen or pelvis. Exposure: One or more of the following in the visualized dose reduction techniques were utilized for this examination: 1. Automated exposure control 2. Adjustment of the MA and/or KV according to patient size 3. Use of iterative of reconstructive technique Electronically signed by: Shayna Betts MD (12/22/2019 4:16 PM) [facility]
[2019-12-22] MEDS ORDERED: IV NORMAL SALINE 100ML 100 ML ONE (16:45)
[2019-12-22 16:53] LABS: ANISOCYTOSIS SLIGHT; ROULEAUX PRESENT
[2019-12-22 17:28] LABS: PLT ESTIMATE ADEQUATE (ADEQUATE)
[2019-12-22] MEDS ORDERED: ACETAMINOPHEN 500 MG TABLET PO PRN (18:30)
--- NOTE | 2019-12-22 19:00 | NUR ---
Admission Note: Pt transported via EMS from ED to [facility] room 107, pt transferred to bed w/two person assist, VSS, no c/o n/v at this time, pt continues to have RLQ pain radiating to the center and upper abdomen, admission documentation completed, pt oriented to room/surroundings/hospital routines/call light and safety precautions. Will continue to monitor.
[2019-12-22 19:13] VITALS: BP 108/65
[2019-12-22] MEDS: ATORVASTATIN CALCIUM 10 MG TABLET. PO SCH (20:12)
[2019-12-22 23:19] VITALS: BP 108/58
[2019-12-23] MEDS: LEVOTHYROXINE 150 MCG TABLET PO SCH (05:54)
[2019-12-23 06:23] LABS: BASO % 2 % (0-3); EOS # 0.1 x10^3/uL (0.0-0.7); EOS % 7 % (0-3); HEMATOCRIT 20.4 % (36.0-47.0); LYMPH # 0.8 x10^3/uL (1.0-4.8); LYMPH % 40 % (24-48); MEAN CORPUSCULAR HEMOGLOBIN 35 pg (25-35); MEAN CORPUSCULAR HGB CONC 31 g/dL (31-37); MEAN CORPUSCULAR VOLUME 111 fL (79-100); MONO # 0.2 x10^3/uL (0.0-1.1); MONO % 9 % (0-9); NEUT # 0.8 x10^3uL (1.8-7.7); NEUT % 42 % (31-73); PLATELET COUNT 76 x10^3/uL (140-400); RED BLOOD COUNT 1.84 x10^6/uL (3.50-5.40); RED CELL DISTRIBUTION WIDTH 18.8 % (11.5-14.5)
[2019-12-23 06:26] LABS: CALCIUM 7.7 mg/dL (8.5-10.1); CREATININE 1.4 mg/dL (0.6-1.0); GFR 36.8
[2019-12-23 06:28] LABS: HEMOGLOBIN 6.4 g/dL (12.0-15.5); WHITE BLOOD COUNT 1.9 x10^3/uL (4.0-11.0)
[2019-12-23] MEDS ORDERED: PIP/TAZO PER PHARMACY MC PRN (06:30)
[2019-12-23] MEDS ORDERED: VANCOMYCIN PER PHARMACY MC PRN (06:30)
[2019-12-23 06:31] VITALS: BP 104/63
--- NOTE | 2019-12-23 06:40 | EKG ---
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
[2019-12-23] MEDS ORDERED: VANCOMYCIN 2 GM in IV NORMAL SALINE 500ML 500 ML IV ONE (07:00)
[2019-12-23] MEDS: SUCRALFATE 1 GM/10 ML ORAL.SUSP. PEG SCH ×4 (07:30→21:20)
[2019-12-23] MEDS ORDERED: PANTOPRAZOLE 40 MG TABLET. PO SCH (07:30)
--- NOTE | 2019-12-23 08:09 | NUR ---
IP: patient PUI for COVID-19, requires contact and airborne precautions.
[2019-12-23] MEDS: PIPERACILLIN/TAZOBACTAM 2.25 GM in IV NORMAL SALINE 50ML 50 ML IV SCH ×3 (08:10→17:37)
[2019-12-23] MEDS: INSULIN GLARGINE SYRINGE. SQ SCH (09:00)
[2019-12-23] MEDS: LOSARTAN 50 MG TABLET. PO SCH (09:00)
[2019-12-23] MEDS ORDERED: FLU VACC QS 2020-21(6MOS+)/PF 0.5 ML SYRINGE. VAX IM ONE (09:00)
[2019-12-23] MEDS ORDERED: ASPIRIN CHEWABLE 81 MG TABLET. PO SCH (09:00)
[2019-12-23] MEDS: PANTOPRAZOLE IV 80 MG in IV NORMAL SALINE 100ML 100 ML IV SCH ×2 (09:01→17:00)
--- NOTE | 2019-12-23 09:36 | NUR ---
Pharmacy Vancomycin Dosing Note S:Consulted to monitor and dose vancomycin started 12/23/19. O:MAIKEL PINEDO is a 74 year old F with Pneumonia UTI Height: 5 feet, 3 inches Weight: 82.8 kg Dosing Weight: Actual Other Antibiotics: ZITHROMAX 250MG PO DAILY ZOSYN 2.25GM IV Q6H LABS: Last BUN: 26 Last Creatinine: 1.4 Creatinine Clearance: 35.9 Last WBC: 1.9 Microbiology: PENDING Vancomycin Dosing: Loading Dose: 2000 mg x1 Dosing Weight: Actual Target Trough: 15-20 A: Based on: patient with pneuomnia and UTI, given 2gm loading dose and will be started on 1250mg q24h maintenance dose. P: 1. Begin Vancomycin 1250 mg IV q24h 2. Follow up Trough level on 12/25/19 at 0830 3. Pharmacy will continue to monitor, follow and adjust therapy as needed. SPRING BRIECNO, 12/23/19 0936
[2019-12-23 09:42] LABS: % BASOS 2 % (0-3); % EOS 7 % (0-5); % LYMPHS 42 % (24-48); % MONOS 6 % (0-10); % SEGS 43 % (35-66); PLT ESTIMATE DECREASED (ADEQUATE)
[2019-12-23 09:43] LABS: ANISOCYTOSIS SLIGHT
[2019-12-23 09:45] LABS: OVALOCYTES OCC; POLYCHROMASIA PRESENT; TEAR DROP CELLS OCC
[2019-12-23] MEDS ORDERED: MORPHINE SULFATE 2 MG/ML DISP.SYRIN. IV PRN (10:00)
[2019-12-23] MEDS ORDERED: MORPHINE SULFATE 2 MG/ML DISP.SYRIN. IM ONE (10:30)
[2019-12-23] MEDS: LINAGLIPTIN 5 MG TABLET PO SCH (10:46)
[2019-12-23] MEDS: FERROUS SULFATE 325 MG TABLET. PO SCH (10:46)
[2019-12-23] MEDS: CITALOPRAM 20 MG TABLET. PO SCH (10:46)
[2019-12-23] MEDS: AZITHROMYCIN 250 MG TABLET. PO SCH (10:46)
[2019-12-23 11:27] VITALS: BP 94/56
[2019-12-23 15:14] VITALS: BP 117/59
[2019-12-23 17:10] LABS: HEMATOCRIT 21.4 % (36.0-47.0); HEMOGLOBIN 6.6 g/dL (12.0-15.5)
--- NOTE | 2019-12-23 18:23 | NUR ---
END OF SHIFT-Pt is A&Ox4, able to make needs known et participate in POC et education. Up with SBA et walker to bathroom. Has been unable to have BM so far for occult stool. HGB result was critical at 6.7, an actual increase from 6.[address] Bui notified of critical result, no new orders rec'd. Additional IV site initiated to provide dedicated site for Protonix gtt. Appetite has been poor. C/o pain early in shift, however denied for the rest of the day.
[2019-12-23 18:24] VITALS: BP 111/58
[2019-12-23] MEDS: ZOLPIDEM 5 MG TABLET. PO PRN (21:20)
[2019-12-23] MEDS: ATORVASTATIN CALCIUM 10 MG TABLET. PO SCH (21:20)
[2019-12-24 00:28] VITALS: BP 114/89
[2019-12-24] MEDS: PANTOPRAZOLE IV 80 MG in IV NORMAL SALINE 100ML 100 ML IV SCH ×3 (03:14→23:29)
[2019-12-24] MEDS: PIPERACILLIN/TAZOBACTAM 2.25 GM in IV NORMAL SALINE 50ML 50 ML IV SCH ×3 (05:19→11:28)
[2019-12-24] MEDS: LEVOTHYROXINE 150 MCG TABLET PO SCH (05:21)
[2019-12-24 06:12] VITALS: BP 92/64
[2019-12-24 07:07] LABS: BASO % 2 % (0-3); EOS # 0.2 x10^3/uL (0.0-0.7); EOS % 8 % (0-3); HEMATOCRIT 23.2 % (36.0-47.0); HEMOGLOBIN 7.2 g/dL (12.0-15.5); LYMPH # 0.6 x10^3/uL (1.0-4.8); LYMPH % 25 % (24-48); MEAN CORPUSCULAR HEMOGLOBIN 35 pg (25-35); MEAN CORPUSCULAR HGB CONC 31 g/dL (31-37); MEAN CORPUSCULAR VOLUME 111 fL (79-100); MONO # 0.2 x10^3/uL (0.0-1.1); MONO % 8 % (0-9); NEUT # 1.4 x10^3uL (1.8-7.7); NEUT % 57 % (31-73); PLATELET COUNT 83 x10^3/uL (140-400); RED BLOOD COUNT 2.09 x10^6/uL (3.50-5.40); WHITE BLOOD COUNT 2.4 x10^3/uL (4.0-11.0)
[2019-12-24 07:13] LABS: HEMOGLOBIN A1C 4.4 % (4.8-5.6)
[2019-12-24 07:25] LABS: CALCIUM 7.9 mg/dL (8.5-10.1); CREATININE 1.5 mg/dL (0.6-1.0); GFR 33.9; POTASSIUM 4.1 mmol/L (3.5-5.1)
[2019-12-24] MEDS ORDERED: FERROUS SULFATE 325 MG TABLET. PO SCH (08:00)
[2019-12-24] MEDS: SUCRALFATE 1 GM/10 ML ORAL.SUSP. PEG SCH ×4 (08:20→20:44)
[2019-12-24] MEDS: CITALOPRAM 20 MG TABLET. PO SCH (08:21)
[2019-12-24] MEDS: FERROUS SULFATE 325 MG TABLET. PO SCH (08:21)
[2019-12-24] MEDS: CHOLECALCIFEROL (VITAMIN D3) 1,000 UNIT TABLET PO SCH (08:21)
[2019-12-24] MEDS: LINAGLIPTIN 5 MG TABLET PO SCH (08:22)
[2019-12-24] MEDS: AZITHROMYCIN 250 MG TABLET. PO SCH (08:22)
[2019-12-24] MEDS: LOSARTAN 50 MG TABLET. PO SCH (08:24)
[2019-12-24] MEDS: INSULIN GLARGINE SYRINGE. SQ SCH (08:27)
[2019-12-24] MEDS ORDERED: VANCOMYCIN 1.25 GM in IV NORMAL SALINE 250ML 250 ML IV SCH (09:00)
--- NOTE | 2019-12-24 11:17 | PN ---
DATE: SUBJECTIVE: A 74-year-old female came in with severe nausea, vomiting and generalized weakness. Her hemoglobin had dropped from approximately 7.4, which is pretty much stable for her, but unfortunately dropped down to 6.4 range. She was placed on aggressive therapy of IV Protonix, Carafate and taken off her baby aspirin, put on pneumatic hoses and later in the day hemoglobin came up to 6.6. The patient's white count is still low today at 1.9. She is on IV vancomycin as well as Zosyn and azithromycin. The patient's cause of her leukopenia could be from superimposed interstitial pneumonitis. The patient is still awaiting results on her COVID testing and we will make further evaluation once that has returned. IMPRESSION: Sepsis, leukopenia, anemia, possibly secondary to iron deficiency. She is a Jehovah Witness and refuses blood transfusion. Iron levels are low. In the past, she has had iron infusions. Severe protein malnutrition, hypothyroidism, vitamin D deficiency. PLAN: To adjust those medications, give her additional vitamin D, levothyroxine, iron and recheck her H and H and her white count in the morning. GABBY POLO MD DR: CHEMA/bri JOB#: [id number] / [id number]
[2019-12-24 11:25] LABS: % BANDS 2 % (0-9); % BASOS 1 % (0-3); % EOS 9 % (0-5); % LYMPHS 28 % (24-48); % MONOS 2 % (0-10); % SEGS 58 % (35-66); PLT ESTIMATE ADEQUATE (ADEQUATE)
[2019-12-24 11:40] VITALS: BP 82/69
[2019-12-24 14:04] VITALS: BP 109/61
[2019-12-24] MEDS ORDERED: MINERAL OIL 133 ML ENEMA. PR ONE (16:00)
[2019-12-24 17:11] LABS: FECAL OB PT POSITIVE (NEG)
[2019-12-24 20:17] VITALS: BP 104/63
[2019-12-24] MEDS: ZOLPIDEM 5 MG TABLET. PO PRN (20:44)
[2019-12-24] MEDS: ATORVASTATIN CALCIUM 10 MG TABLET. PO SCH (20:44)
[2019-12-25 00:09] VITALS: BP 95/56
[2019-12-25] MEDS: LEVOTHYROXINE 150 MCG TABLET PO SCH (05:55)
[2019-12-25 06:09] VITALS: BP 123/69
[2019-12-25 06:42] LABS: BASO % 2 % (0-3); EOS # 0.2 x10^3/uL (0.0-0.7); EOS % 8 % (0-3); HEMATOCRIT 21.7 % (36.0-47.0); LYMPH # 0.6 x10^3/uL (1.0-4.8); LYMPH % 29 % (24-48); MEAN CORPUSCULAR HEMOGLOBIN 34 pg (25-35); MEAN CORPUSCULAR HGB CONC 31 g/dL (31-37); MEAN CORPUSCULAR VOLUME 110 fL (79-100); MONO # 0.2 x10^3/uL (0.0-1.1); MONO % 10 % (0-9); NEUT % 51 % (31-73); PLATELET COUNT 72 x10^3/uL (140-400); RED BLOOD COUNT 1.98 x10^6/uL (3.50-5.40); RED CELL DISTRIBUTION WIDTH 17.1 % (11.5-14.5)
[2019-12-25 06:44] LABS: HEMOGLOBIN 6.7 g/dL (12.0-15.5)
[2019-12-25 07:01] LABS: CALCIUM 8.1 mg/dL (8.5-10.1); CREATININE 1.6 mg/dL (0.6-1.0); GFR 31.5
[2019-12-25] MEDS: LOSARTAN 50 MG TABLET. PO SCH (08:01)
[2019-12-25] MEDS: SUCRALFATE 1 GM/10 ML ORAL.SUSP. PEG SCH ×3 (08:02→16:08)
[2019-12-25] MEDS: CHOLECALCIFEROL (VITAMIN D3) 1,000 UNIT TABLET PO SCH (08:02)
[2019-12-25] MEDS: FERROUS SULFATE 325 MG TABLET. PO SCH (08:03)
[2019-12-25] MEDS: LINAGLIPTIN 5 MG TABLET PO SCH (08:03)
[2019-12-25] MEDS: AZITHROMYCIN 250 MG TABLET. PO SCH (08:03)
[2019-12-25] MEDS: CITALOPRAM 20 MG TABLET. PO SCH (08:03)
[2019-12-25] MEDS: INSULIN GLARGINE SYRINGE. SQ SCH (08:06)
[2019-12-25 11:08] VITALS: BP 118/70
[2019-12-25] MEDS: PANTOPRAZOLE IV 80 MG in IV NORMAL SALINE 100ML 100 ML IV SCH (11:14)
--- NOTE | 2019-12-25 13:08 | PN ---
DATE: SUBJECTIVE: A 74-year-old female came in with probable acute GI bleed, positive Hemoccults. Hemoglobin went down to 6.4, white count of 1.9. Those have come up to 7.2 and 2.4, respectively. The patient is a Jehovah Witness and will refuse blood products. I took her off her aspirin, put her on a strong antiulcer medication. OBJECTIVE: VITAL SIGNS: Her blood pressure went down as low as 82/69, came up to 109/60, respiratory rate 20, pulse 70, afebrile. GENERAL: The patient is alert and oriented. LUNGS: Diminished throughout, poor movement of air, but basically clear than it has been. CARDIOVASCULAR: Regular sinus rhythm, S1, S2. ABDOMEN: Soft, nontender, scaphoid. EXTREMITIES: No clubbing, cyanosis or edema. NEUROLOGIC: The patient is alert and oriented x 3. Hemoglobin as noted has come up on its own and making fair progress with that combination. IMPRESSION: Sepsis, leukopenia, anemia secondary to iron deficiency anemia, Jehovah Witness, refusing blood transfusion, positive Hemoccults, severe protein malnutrition, hypothyroidism and vitamin D deficiency. All those would be adjusted and hopefully will come up again in the morning and then she can be discharged home. GABBY POLO MD DR: CHEMA/bri JOB#: [id number] / [id number]
[2019-12-25 15:08] VITALS: BP 104/62
--- NOTE | 2019-12-25 17:57 | NUR ---
NURSING NOTE PATIENT SIGNED THE CONSENT TO BE TRANSFERRED TO [facility] WITH POSSIBLE GI BLEED FOR HIGHER LEVEL OF CARE. AWAITING FOR BED PLACEMENT.
--- NOTE | 2019-12-25 19:42 | NUR ---
Discharge Note: MAIKEL PIENDO [address] Discharge instructions and discharge home medications reviewed with Other facility and a copy given. All questions have been answered and understanding verbalized. The following instructions and handouts were given: MED REC D/C PACKET continued lines and drains: Peripheral IV intact. Reported called Ana MORRIS Patient discharged to [facility] with Ambulance Personnel via [facility]. All belongings sent w/ pt.
--- NOTE | 2019-12-26 14:59 | PN ---
DATE: SUBJECTIVE: A 74-year-old female present with a probable acute GI bleed. She is a Restorationist and refuses to receive blood. She also has leukopenia and thrombocytopenia. Blood smear has been sent out. Actually, she feels really fairly good. OBJECTIVE: VITAL SIGNS: Blood pressure approximately 104/60, respiratory rate 18, pulse 70, afebrile, good oxygen saturation. GENERAL: The patient is alert and oriented. LUNGS: Diminished throughout, but basically clear. CARDIOVASCULAR: Regular sinus rhythm. ABDOMEN: Soft, nontender. EXTREMITIES: No clubbing, cyanosis, nor edema. LABORATORY DATA: The patient's hemoglobin dropped down to 6.7 and 21, white count is still low at 2. Her lactic acid was negative at 0.9. So, the cause of this leukopenia and thrombocytopenia. Platelet count is down to 72,000. Probably some myelodysplastic disorder of some sort. In any case, the patient has been explained about her transfer and will be probably transferred down to [place] for further evaluation by GI, Hematology and with other specialists, ____ hospitalist would decide on. IMPRESSION: Sepsis, leukopenia, anemia, severe protein malnutrition, hypothyroidism, thrombocytopenia, vitamin D deficiency. GABBY POLO MD DR: CHEMA/bri JOB#: [id number] / [id number]
== END 2019-12-25 19:45 | disposition short-term general hospital (02) | DRG 871 ==
LOC: ER 13:38 → 1 SOUTH 17:25
PROVIDERS: ADMIT Family Medicine; ATTEND Family Medicine
DX: A41.9 Sepsis, unspecified organism (principal); E43 Unspecified severe protein-calorie malnutrition; K76.6 Portal hypertension; K92.2 Gastrointestinal hemorrhage, unspecified; N30.00 Acute cystitis without hematuria; E03.9 Hypothyroidism, unspecified; E11.9 Type 2 diabetes mellitus without complications; E78.00 Pure hypercholesterolemia, unspecified; I50.9 Heart failure, unspecified; I11.0 Hypertensive heart disease with heart failure; I25.10 Atherosclerotic heart disease of native coronary artery without angina pectoris; Z53.1 Procedure and treatment not carried out because of patient's decision for reasons of belief and group pressure; Z20.828 Contact with and (suspected) exposure to other viral communicable diseases; J44.9 Chronic obstructive pulmonary disease, unspecified; D69.6 Thrombocytopenia, unspecified; D50.9 Iron deficiency anemia, unspecified; J84.89 Other specified interstitial pulmonary diseases; E55.9 Vitamin D deficiency, unspecified; R16.1 Splenomegaly, not elsewhere classified; F41.9 Anxiety disorder, unspecified; M19.90 Unspecified osteoarthritis, unspecified site; Z90.710 Acquired absence of both cervix and uterus; Z90.49 Acquired absence of other specified parts of digestive tract; Z87.891 Personal history of nicotine dependence; Z68.32 Body mass index [BMI] 32.0-32.9, adult; Z87.01 Personal history of pneumonia (recurrent); Z88.2 Allergy status to sulfonamides; Z88.8 Allergy status to other drugs, medicaments and biological substances; Z79.899 Other long term (current) drug therapy
CPT/HCPCS: 36415; 71046; 74176; 80048; 80053; 81001; 82274; 82550; 82607; 82947; 83036; 83540; 83550; 83605; 83690; 83735; 83880; 84484; 85007; 85014; 85018; 85025; 85045; 85379; 85610; 87077; 87086; 87186; 90471; 90686; 93005; 96361; 96365; 96375; C9113; J0456; J0696; J1815; J1956; J2270; J2543; J3010; J3370; J7040; J7050; P9612; U0003; 99285-25; J7030